=== PATIENT | female | born 1970 ===

== ENCOUNTER 2016-11-22 09:52 | Observation (INO) | payer OTHER, SELFPAY ==
[2016-11-22 09:52] VITALS: BMI 28.0
[2016-11-22 10:46] VITALS: RESP 18; TEMP 97
--- NOTE | 2016-11-22 11:02 | ED PDOC ---
HPI: Abdomen Time Seen by Provider: 11/22/16 11:01 Chief Complaint (Nursing): Abdominal Pain Chief Complaint (Provider): abdominal pain History Per: Patient Additional Complaint(s): 46 year old female presents to ED with lower abdominal pain and constipation for 5 days. Patient states she has only been having very small bowel movements over the past few days and has not had a normal substantial bowel movement in 6 days. She feels nauseous but denies any vomiting. She is tolerating liquids and solids but has decreased appetite. Patient denies history of constipation. She denies any dietary changes. No new medications. Past Medical History Reviewed: Historical Data, Nursing Documentation, Vital Signs Vital Signs: Last Vital Signs Temp 97 F L 11/22/16 10:44 Pulse 82 11/22/16 14:27 Resp 18 11/22/16 14:27 BP 133/81 11/22/16 14:27 Pulse Ox 98 11/22/16 15:01 - Medical History PMH: Gastritis, Hypothyroidism, Chronic Pain (chronic abd pain) - Surgical History Surgical History: Cholecystectomy, Endoscopy Other surgeries: tubal ligation - Family History Family History: States: No Known Family Hx - Living Arrangements Living Arrangements: With Family - Social History Current smoker - smoking cessation education provided: No Alcohol: None Drugs: Denies - Home Medications Home Medications: Ambulatory Orders Medication Instructions Recorded Levothyroxine Sodium [Synthroid] 88 mcg PO DAILY #30 tablet 12/09/15 Omeprazole 40 mg PO DAILY #0 capsule. 12/09/15 Cyclobenzaprine [Cyclobenzaprine 10 mg PO BID PRN #10 tab 08/03/16 HCl] traMADol [Ultram] 50 mg PO Q8 PRN #10 tab 08/03/16 - Allergies Allergies/Adverse Reactions: Allergies Allergy/AdvReac Type Severity Reaction Status Date / Time pineapple AdvReac SWELLING Verified 01/17/16 09:37 iv contrast AdvReac Intermediate SHORTNESS Uncoded 12/08/15 19:13 OF BREATH Review of Systems ROS Statement: Except As Marked, All Systems Reviewed And Found Negative Constitutional: Negative for: Fever Cardiovascular: Negative for: Chest Pain Respiratory: Negative for: Cough Gastrointestinal: Positive for: Nausea, Abdominal Pain, Constipation. Negative for: Vomiting, Diarrhea Genitourinary Female: Negative for: Dysuria Physical Exam - Reviewed Nursing Documentation Reviewed: Yes Vital Signs Reviewed: Yes - Physical Exam Appears: Positive for: Well, Non-toxic, No Acute Distress Skin: Negative for: Pallor, Rash Eye Exam: Positive for: Normal appearance, EOMI, PERRL Cardiovascular/Chest: Positive for: Regular Rate, Rhythm Respiratory: Positive for: Normal Breath Sounds Gastrointestinal/Abdominal: Positive for: Soft, Tenderness (mild diffuse tenderness in all 4 quadrants with slight distention, no rebound or guarding). Negative for: Hernia, Asicites Back: Negative for: L CVA Tenderness, R CVA Tenderness Rectal: Positive for: Normal Exam, Stool Is Heme: (negative), Other (no stoil in rectal vault). Negative for: Hemorrhoids, Mass Extremity: Negative for: Pedal Edema Neurologic/Psych: Positive for: Alert, Oriented - Laboratory Results Result Diagrams: 11/22/16 11:45 11/22/16 11:45 Urine POC: Negative - ECG O2 Sat by Pulse Oximetry: 98 Pulse Ox Interpretation: Normal - Other Rad CT abd and pelvis with oral contrast X-Ray: Read By Radiologist X-Ray Interpretation: see below Medical Decision Making Medical Decision Makin46 year old with abdominal pain and constipation Plan: CBC CMP Lipase KUB IVF PO mag citrate Glycerin supp Urine dip and test 11:45 am: Patient became nauseous after drinking magnesium citrate, she did not vomit. 4 mg IV Zofran ordered. Nausea resolved after Zofran was given. 1:30 pm: patient is still in a lot of pain and she was not able to have BM in ED after meds given. Repeat exam of abdomen demonstrates increased diffuse tenderness. Case was d/w Dr. Beckett, CT abd and pelvis with oral contrast only was ordered for further evaluation, patient has known allergy to IV contrast dye. ED OBSERVATION Date of observation admission: 11/22/16 Time of observation admission: 13:37 - Observation admission statement Patient is being placed in observation because:: Abdominal pain; Need for additional testing to rule out acute or life threatening condition. - Goals of Observation Goals of observation are:: Monitor patient pending diagnostic testing results and for resolution of symptoms. - Progress Note Progress Note: 11/22/16 15:01 Patient tolerated oral contrast, she is awaiting CT scan. Patient was able to have 2 bowel movements in ED and she now feels better. 11/22/16 17:00 CT: IMPRESSION: CT manifestations of mild enteritis without mechanical obstruction. This represents a new finding compared to prior CT scan. Otherwise no interval change. Patient is aware of all diagnostic testing results, all questions answered. Patient feels much better. Prescription given for Cipro secondary to UTI and enteritis. Patient given dietary instructions and was advised to drink plenty of fluids. Patient was advised to follow-up with clinic in one to 2 days and is aware she can return to ED at any time if acutely worse. Disposition - Clinical Impression Clinical Impression: Constipation, Urinary tract infection, Enteritis - Patient ED Disposition Is Patient to be Admitted: No Counseled Patient/Family Regarding: Studies Performed, Diagnosis, Need For Followup - Disposition Disposition: Routine/Home Disposition Time: 17:30 Condition: STABLE Results - Vital Signs Recent Vital Signs: Last Vital Signs Temp 97 F L 11/22/16 10:44 Pulse 82 11/22/16 14:27 Resp 18 11/22/16 14:27 BP 133/81 11/22/16 14:27 Pulse Ox 98 11/22/16 17:43 - Labs Result Diagrams: 11/22/16 11:45 11/22/16 11:45 Labs: Laboratory Results - last 24 hr 11/22/16 11/22/16 11/22/16 11:45 11:45 12:20 WBC 7.4 RBC 4.43 Hgb 13.5 Hct 39.1 MCV 88.3 MCH 30.4 MCHC 34.5 RDW 14.1 Plt Count 235 MPV 7.3 Neut % (Auto) 44.6 L Lymph % (Auto) 34.2 Martin % (Auto) 6.5 Eos % (Auto) 13.7 H Baso % (Auto) 1.0 Neut # 3.3 Lymph # 2.5 Martin # 0.5 Eos # 1.0 H Baso # 0.1 Sodium 140 Potassium 3.7 Chloride 102 Carbon Dioxide 28 Anion Gap 14 BUN 17 Creatinine 0.9 Est GFR ( Amer) > 60 Est GFR (Non-Af Amer) > 60 Random Glucose 107 H Calcium 9.0 Total Bilirubin 0.3 AST 35 ALT 43 Alkaline Phosphatase 123 Total Protein 7.5 Albumin 4.3 Globulin 3.2 Albumin/Globulin Ratio 1.4 Lipase 106 Urine Color Yellow Urine Clarity Slighty-cloudy Urine pH 6.0 Ur Specific Jefferson 1.024 Urine Protein Negative Urine Glucose (UA) Neg Urine Ketones Negative Urine Blood Negative Urine Nitrate Negative Urine Bilirubin Negative Urine Urobilinogen 0.2-1.0 Ur Leukocyte Esterase Small Urine RBC (Auto) 3 Urine Microscopic WBC 7 H Ur Squamous Epith Cells 10 H Urine Bacteria Rare
[2016-11-22] MEDS ORDERED: Magnesium Citrate Oral SOL (300 ml) PO STA (11:11)
[2016-11-22] MEDS ORDERED: Sodium Chloride 0.9% 1,000 ML IV STA (11:11)
[2016-11-22] MEDS ORDERED: Magnesium Citrate Oral SOL (300 ml) ONE (11:32)
[2016-11-22 11:55] LABS: BASO # 0.1 K/uL (0.0-0.2); EOS % 13.7 % (0.0-4.0); HEMATOCRIT 39.1 % (34.0-47.0); LYMPH # 2.5 K/uL (1.0-4.3); LYMPH % 34.2 % (20.0-40.0); MEAN CELL VOLUME 88.3 fl (81.0-99.0); MEAN CORPUSCULAR HEMOGLOBIN 30.4 pg (27.0-31.0); MEAN CORPUSCULAR HGB CONC 34.5 g/dL (33.0-37.0); MEAN PLATELET VOLUME 7.3 fl (7.2-11.7); MONO # 0.5 K/uL (0.0-0.8); MONO % 6.5 % (0.0-10.0); NEUT # 3.3 K/uL (1.8-7.0); NEUT % 44.6 % (50.0-75.0); NRBC % 0.1 % (0.0-0.0); RED CELL DISTRIBUTION WIDTH 14.1 % (11.5-14.5); WHITE BLOOD COUNT 7.4 K/uL (4.8-10.8)
[2016-11-22 12:12] LABS: ALB/GLOB RATIO 1.4 (1.0-2.1); ALKALINE PHOSPHATASE 123 U/L (38-126); ALT/SGPT 43 U/L (9-52); AST/SGOT 35 U/L (14-36); BILIRUBIN,TOTAL 0.3 mg/dl (0.2-1.3); BLOOD UREA NITROGEN 17 mg/dl (7-17); CARBON DIOXIDE 28 mmol/L (22-30); CHLORIDE 102 mmol/L (98-107); GFR AFRICAN-AMERICAN > 60; GLUCOSE,RANDOM 107 mg/dL (65-105); LIPASE 106 U/L (23-300); POTASSIUM 3.7 MMOL/L (3.6-5.0); SODIUM 140 mmol/l (132-148); TOTAL PROTEIN 7.5 G/DL (6.3-8.2)
[2016-11-22 12:50] LABS: RBC URINE 3 /hpf (0-3); URINE BACTERIA RARE (<OCC); URINE BILIRUBIN NEGATIVE (NEGATIVE); URINE BLOOD NEGATIVE (NEGATIVE); URINE COLOR YELLOW (YELLOW); URINE GLUCOSE (UA) NEG (Normal); URINE KETONE NEGATIVE (NEGATIVE); URINE LEUKOCYTE ESTERASE SMALL Leu/uL (Negative); URINE PROTEIN NEGATIVE (NEGATIVE); URINE UROBILINOGEN 0.2-1.0 mg/dL (0.2-1.0); WBC URINE 7 /hpf (0-5)
--- NOTE | 2016-11-22 13:25 | RAD ---
HISTORY: constipation, abd pain COMPARISON: 06/26/2015 FINDINGS: BOWEL: No evidence of bowel obstruction. Moderate retained stool throughout the colon. No masses or abnormal intra-abdominal calcifications. Status post cholecystectomy. Surgical clips in right upper quadrant. BONES: Normal. OTHER FINDINGS: None. IMPRESSION: Moderate retained stool.
[2016-11-22] MEDS ORDERED: Iohexol 240 (50 ml) PO STA (13:36)
[2016-11-22] MEDS ORDERED: Iohexol 240 (50 ml) ONE (14:09)
--- NOTE | 2016-11-22 17:09 | CT ---
PROCEDURE: CT Abdomen and Pelvis with contrast HISTORY: Abdominal pain. By history, negative test (concurrent with this examination). COMPARISON: 04/04/2016. TECHNIQUE: Oral contrast only. Radiation dose: Total exam DLP = 1073.75 mGy-cm. This CT exam was performed using one or more of the following dose reduction techniques: Automated exposure control, adjustment of the mA and/or kV according to patient size, and/or use of iterative reconstruction technique. FINDINGS: LOWER THORAX: Unremarkable. LIVER: Unremarkable. No gross lesion or ductal dilatation. GALLBLADDER AND BILE DUCTS: Status post cholecystectomy. No abnormality is seen in the gallbladder fossa. PANCREAS: Unremarkable. No gross lesion or ductal dilatation. SPLEEN: Unremarkable. ADRENALS: Unremarkable. No mass. KIDNEYS AND URETERS: Unremarkable. No hydronephrosis. No solid mass. VASCULATURE: Unremarkable. No aortic aneurysm. BOWEL: Mild mural thickening of the proximal small bowel compatible with enteritis. No evidence of mechanical obstruction. APPENDIX: Normal appendix. PERITONEUM: Unremarkable. No free fluid. No free air. LYMPH NODES: Unremarkable. No enlarged lymph nodes. BLADDER: Unremarkable. REPRODUCTIVE: Unremarkable. BONES: No acute fracture. OTHER FINDINGS: None. IMPRESSION: CT manifestations of mild enteritis without mechanical obstruction. This represents a new finding compared to prior CT scan. Otherwise no interval change.
[2016-11-22 17:59] VITALS: BP 119/81; PULSE 64; O2SAT 100
== END 2016-11-22 17:47 | disposition home or self-care (01) ==
LOC: H.ER 09:52 → H.EROBSV 13:37
PROVIDERS: ADMIT Emergency Medicine; ATTEND Emergency Medicine
DX: K59.00 Constipation, unspecified (principal); N39.0 Urinary tract infection, site not specified; K52.9 Noninfective gastroenteritis and colitis, unspecified; E03.9 Hypothyroidism, unspecified; G89.29 Other chronic pain; K29.70 Gastritis, unspecified, without bleeding; Z91.041 Radiographic dye allergy status; Z91.018 Allergy to other foods

== ENCOUNTER 2017-01-20 14:47 | Emergency (ER) | payer SELFPAY ==
[2017-01-20 14:47] VITALS: BMI 28.0
[2017-01-20 15:01] VITALS: O2SAT 98
[2017-01-20] MEDS ORDERED: Sodium Chloride 0.9% 1,000 ML IV STA (15:21)
--- NOTE | 2017-01-20 15:31 | ED PDOC ---
HPI: Abdomen Time Seen by Provider: 01/20/17 15:16 Chief Complaint (Nursing): Abdominal Pain Chief Complaint (Provider): Abdominal Pain History Per: Patient History/Exam Limitations: no limitations Onset/Duration Of Symptoms: Days (x 2 weeks), Intermittent Episodes Location Of Pain/Discomfort: RLQ Additional Complaint(s): Batool Amor is a 46-year-old female with a past medical history of cholecystectomy and hypothyroidism who presents to the ED complaining of intermittent right lower quadrant abdominal pain with associated nausea and vomiting intermittently ongoing for two weeks ago. The patient denies fever, dysuria, and hematochezia. Last menstrual period was 2 years ago. PMD: None recorded. Past Medical History Reviewed: Historical Data, Nursing Documentation, Vital Signs Vital Signs: Last Vital Signs Temp 97.3 F L 01/20/17 14:58 Pulse 78 01/20/17 14:58 Resp 18 01/20/17 14:58 BP 124/86 01/20/17 14:58 Pulse Ox 98 01/20/17 15:40 - Medical History PMH: Gastritis, Hypothyroidism, Chronic Pain (chronic abd pain) Denies: HIV, Chronic Kidney Disease - Surgical History Surgical History: Cholecystectomy, Endoscopy - Family History Family History: States: Unknown Family Hx - Home Medications Home Medications: Ambulatory Orders Medication Instructions Recorded Levothyroxine Sodium [Synthroid] 88 mcg PO DAILY #30 tablet 12/09/15 Omeprazole 40 mg PO DAILY #0 capsule. 12/09/15 Cyclobenzaprine [Cyclobenzaprine 10 mg PO BID PRN #10 tab 08/03/16 HCl] traMADol [Ultram] 50 mg PO Q8 PRN #10 tab 08/03/16 Ciprofloxacin [Cipro] 500 mg PO BID #14 tab 11/22/16 - Allergies Allergies/Adverse Reactions: Allergies Allergy/AdvReac Type Severity Reaction Status Date / Time pineapple AdvReac SWELLING Verified 01/17/16 09:37 iv contrast AdvReac Intermediate SHORTNESS Uncoded 12/08/15 19:13 OF BREATH Review of Systems ROS Statement: Except As Marked, All Systems Reviewed And Found Negative Constitutional: Negative for: Fever Gastrointestinal: Positive for: Nausea, Vomiting, Abdominal Pain (RLQ). Negative for: Hematochezia Genitourinary Female: Negative for: Dysuria, Frequency, Incontinence Physical Exam - Reviewed Nursing Documentation Reviewed: Yes Vital Signs Reviewed: Yes - Physical Exam Appears: Positive for: Well, Non-toxic, No Acute Distress Head Exam: Positive for: ATRAUMATIC, NORMAL INSPECTION, NORMOCEPHALIC Skin: Positive for: Normal Color, Warm, Dry Eye Exam: Positive for: Normal appearance ENT: Positive for: Normal ENT Inspection Neck: Positive for: Normal, Painless ROM, Supple Cardiovascular/Chest: Positive for: Regular Rate, Rhythm Respiratory: Positive for: CNT, Normal Breath Sounds Gastrointestinal/Abdominal: Positive for: Bowel Sounds, Soft, Tenderness (in RLQ ) Back: Positive for: Normal Inspection. Negative for: L CVA Tenderness, R CVA Tenderness Extremity: Positive for: Normal ROM Neurologic/Psych: Positive for: Alert, Oriented - Laboratory Results Result Diagrams: 01/20/17 15:45 01/20/17 15:45 - ECG O2 Sat by Pulse Oximetry: 98 (RA) Pulse Ox Interpretation: Normal Medical Decision Making Medical Decision Making: Initial Plan: * CT Abdomen and pelvis * Labs * Urine dipstick * Urine test * Morphine 2 mg IV * Zofran 4 mg IV * IV NS 1,000 mL given at 100 mL/hr * reevaluation Scribe Attestation: Documented by Cyndie Ochoa, acting as a scribe for Cash Marx MD. Provider Scribe Attestation: All medical record entries made by the Scribe were at my direction and personally dictated by me. I have reviewed the chart and agree that the record accurately reflects my personal performance of the history, physical exam, medical decision making, and the department course for this patient. I have also personally directed, reviewed, and agree with the discharge instructions and disposition. Disposition - Clinical Impression Clinical Impression: Abdominal pain - Patient ED Disposition Is Patient to be Admitted: Transfer of Care - Disposition Disposition Time: 18:53 Condition: FAIR Patient Signed Over To: Elliot Cantu
[2017-01-20] MEDS: Morphine 4 MG/ML VIAL IVP ONE ×2 (16:09→21:19)
[2017-01-20 16:19] LABS: BASO % 0.4 % (0.0-2.0); EOS # 0.3 K/uL (0.0-0.7); EOS % 3.8 % (0.0-4.0); HEMOGLOBIN 13.7 g/dL (12.0-16.0); LYMPH # 2.4 K/uL (1.0-4.3); MEAN CORPUSCULAR HEMOGLOBIN 29.8 pg (27.0-31.0); MEAN CORPUSCULAR HGB CONC 33.5 g/dL (33.0-37.0); MEAN PLATELET VOLUME 7.7 fl (7.2-11.7); MONO # 0.5 K/uL (0.0-0.8); MONO % 7.7 % (0.0-10.0); NEUT # 3.5 K/uL (1.8-7.0); NEUT % 52.1 % (50.0-75.0); RBC 4.59 Mil/uL (3.80-5.20); RED CELL DISTRIBUTION WIDTH 13.6 % (11.5-14.5); WHITE BLOOD COUNT 6.7 K/uL (4.8-10.8)
[2017-01-20 16:25] LABS: ALB/GLOB RATIO 1.4 (1.0-2.1); ALBUMIN 4.3 g/dL (3.5-5.0); ALT/SGPT 64 U/L (9-52); AST/SGOT 49 U/L (14-36); BLOOD UREA NITROGEN 17 mg/dl (7-17); CALCIUM 9.2 mg/dL (8.4-10.2); GFR AFRICAN-AMERICAN > 60; GFR NON-AFRICAN AMERICAN > 60
--- NOTE | 2017-01-20 16:35 | CT ---
PROCEDURE: CT Abdomen and Pelvis without intravenous contrast HISTORY: RLQ pain COMPARISON: 11/22/2016. TECHNIQUE: CT scan of the abdomen and pelvis was performed without administration of intravenous contrast. Oral contrast was not administered. Coronal and sagittal reformatted images were obtained. Radiation dose: Total exam DLP = 1021.14 mGy-cm. This CT exam was performed using one or more of the following dose reduction techniques: Automated exposure control, adjustment of the mA and/or kV according to patient size, and/or use of iterative reconstruction technique. FINDINGS: LOWER THORAX: The lung bases are clear. LIVER: The liver is normal in size and there is diffuse low-attenuation. No gross lesion or ductal dilatation. GALLBLADDER AND BILE DUCTS: Surgically absent. PANCREAS: Normal in size without ductal dilatation or calcifications. SPLEEN: Normal in size. ADRENALS: Normal in size without discrete nodule. KIDNEYS AND URETERS: Both kidneys are normal in size without hydronephrosis or nephrolithiasis. VASCULATURE: Normal in appearance. There are early atherosclerotic aortoiliac calcifications. No aortic aneurysm. BOWEL: The small bowel loops are normal in caliber. There is fecalization of proximal small bowel contents. The mid and distal small bowel loops are normal in caliber. The terminal ileum and ileocecal junction are normal. There is moderate amount of stool scattered throughout the colon. APPENDIX: Normal appendix. PERITONEUM: No free fluid. No free air. LYMPH NODES: Go No enlarged lymph nodes. BLADDER: Partially decompressed. REPRODUCTIVE: The uterus is normal in size.No adnexal masses. BONES: No acute fracture. Within normal limits for the patient's age. OTHER FINDINGS: None. IMPRESSION: 1. Fecalization of proximal small bowel contents is likely related to chronic stasis. No evidence of bowel obstruction. Please note evaluation of the bowel is limited in the absence of oral contrast. Constipation. 2. No CT evidence for nephrolithiasis, obstructive uropathy or acute appendicitis. 3. Hepatic steatosis.
[2017-01-20 19:12] VITALS: BP 129/65; PULSE 75; RESP 14; TEMP 98
--- NOTE | 2017-01-20 19:17 | ED PDOC ---
- Laboratory Results Result Diagrams: 01/20/17 15:45 01/20/17 15:45 - ECG O2 Sat by Pulse Oximetry: 98 (RA) Medical Decision Making Medical Decision Makin:00 Patient is signed out to me by Cash Marx MD pending ultrasound, reevaluation, and final disposition. Scribe Attestation: Documented by Latoya Fuchs, acting as a scribe for Elliot Cantu MD. Provider Scribe Attestation: All medical record entries made by the Scribe were at my direction and personally dictated by me. I have reviewed the chart and agree that the record accurately reflects my personal performance of the history, physical exam, medical decision making, and the department course for this patient. I have also personally directed, reviewed, and agree with the discharge instructions and disposition. Disposition - Clinical Impression Clinical Impression: Abdominal pain - Disposition Condition: FAIR
--- NOTE | 2017-01-20 19:36 | ED PDOC ---
- Laboratory Results Result Diagrams: 01/20/17 15:45 01/20/17 15:45 - ECG O2 Sat by Pulse Oximetry: 98 (RA) Medical Decision Making Medical Decision Makin:00 Patient is signed out to me by Cash Marx MD pending ultrasound, reevaluation, and final disposition. 20:51 US transvaginal read and reviewed by radiologist. FINDINGS: Uterus/cervix: The uterus is normal in size and echotexture. It measures 8.4x3.6x5.4 CM. The endometrial stripe is 4 mm in thickness. No myometrial mass. Right ovary: The right ovary is not clearly visualized. No cystic pelvic mass. Left ovary: The left ovary measures 2.1x1.9x2.5 CM with a volume of 5.3 CC. Small 0.8x0.6x0.7 CM cyst. There is a 1.6x0.8x1.6 CM iso-to slightly echogenic nodule within the left ovary. Normal blood flow. Free fluid: No pelvic free fluid. IMPRESSION: Suboptimal evaluation for the right ovary. 0.8x0.6x0.7 CM small left ovarian cyst and 1.6x0.8x1.6 CM iso-to slightly echogenic nodule in the left ovary. It could represent a complicated cyst or endometrioma. Recommend comparison with prior study which is not available for review at this time. Thank you for allowing us to participate in the care of your patient. Dictated and Authenticated by: Janette Cruz MD 01/20/2017 8:51 PM Eastern Time ([place] & [place]) 21:15 Patient reports having some improvement in pain. Patient is diagnosed with an ovarian cyst and will be discharged home with Rx for Naprosyn and instructions to [facility]. Return if symptoms persist or worsen. Scribe Attestation: Documented by Latoya Fuchs, acting as a scribe for Elliot Cantu MD. Provider Scribe Attestation: All medical record entries made by the Scribe were at my direction and personally dictated by me. I have reviewed the chart and agree that the record accurately reflects my personal performance of the history, physical exam, medical decision making, and the department course for this patient. I have also personally directed, reviewed, and agree with the discharge instructions and disposition. Disposition - Clinical Impression Clinical Impression: Abdominal pain, Ovarian cyst - POA Present On Arrival: None - Disposition Referrals: [facility] [Outside] [facility] [Outside] Disposition: Routine/Home Disposition Time: 21:15 Condition: STABLE Prescriptions: Naproxen [Naprosyn Tab] 250 mg PO Q12 #20 tab Instructions: Ovarian Cyst (ED) Print Language: VINCENTIAN
[2017-01-20 19:53] LABS: LIPASE 96 U/L (23-300)
--- NOTE | 2017-01-22 15:31 | US ---
HISTORY: RLQ pain COMPARISON: Comparison made with prior pelvic ultrasound 07/27/2015. Comparison also made with CT scan of the abdomen and pelvis 01/20/2017. . TECHNIQUE: Transvaginal sonographic evaluation of the pelvis performed. FINDINGS: UTERUS: Is anteverted measuring approximately 8.4 x 4.0 x 5.1 cm. Normal in size and appearance. No fibroid or other mass lesion seen. ENDOMETRIUM: Measures approximately 4 mm. Mm in diameter. Unremarkable. CERVIX: No cervical abnormality identified. RIGHT OVARY: Right ovary is not clearly identified on this exam. LEFT OVARY: Left ovary measures approximately 3.0 x 2.1 x 2.0 cm with a small 8 mm x 6 mm x 7 mm cyst. There is a additional 1.6 x 0.8 x 1.6 cm Iso to slightly echogenic nodule left ovary. Rule out the complicated cyst or endometrioma. Consider followup MRI if further evaluation is required. . FREE FLUID: No significant free fluid noted. OTHER FINDINGS: None. IMPRESSION: Small left ovarian cyst. Small isoechoic to slightly echogenic nodule left ovary. Rule out on complicated cyst or endometrioma. Followup ultrasound at 6 weeks interval vaca the recommended to assess for resolution and exclude aggressive pathology. . Alternatively, MRI of the female pelvis could be performed. . Note this report was placed in [place] review folder followup
== END 2017-01-20 21:57 | disposition home or self-care (01) ==
LOC: H.ER 14:47
DX: N83.202 Unspecified ovarian cyst, left side (principal); E03.9 Hypothyroidism, unspecified

== ENCOUNTER 2017-03-27 15:05 | Observation (INO) | payer SELFPAY ==
[2017-03-27 15:06] VITALS: BMI 28.0
[2017-03-27 15:22] VITALS: BP 147/85; PULSE 69; RESP 20; TEMP 98.6; O2SAT 99
[2017-03-27] MEDS ORDERED: DiphenhydrAMINE 50 mg/ml Inj IVP STA (15:38)
--- NOTE | 2017-03-27 15:48 | ED PDOC ---
HPI: Abdomen Time Seen by Provider: 03/27/17 15:22 Chief Complaint (Nursing): Abdominal Pain Chief Complaint (Provider): abd pain History Per: Patient History/Exam Limitations: no limitations Onset/Duration Of Symptoms: Days (1 week), Gradual, Persistent Outside of [place] travel?: No Current Symptoms Are (Timing): Still Present Location Of Pain/Discomfort: Diffuse Quality Of Discomfort: "Pain" (bloating) Associated Symptoms: Chills, Nausea, Vomiting (yellow ). denies: Fever Exacerbating Factors: None Alleviating Factors: None Additional Complaint(s): Saw Dr Ernestina ALEJANDRA today and then sent to ER for further evaluation. PMD [facility] Juan Alberto Past Medical History Reviewed: Historical Data, Nursing Documentation, Vital Signs Vital Signs: Last Vital Signs Temp 98.6 F 03/27/17 15:19 Pulse 69 03/27/17 15:19 Resp 20 03/27/17 15:19 BP 147/85 03/27/17 15:19 Pulse Ox 99 03/27/17 22:17 - Medical History PMH: Gastritis, Hypothyroidism, Chronic Pain (chronic abd pain) Denies: HIV, Chronic Kidney Disease - Surgical History Surgical History: Cholecystectomy, Endoscopy - Family History Family History: States: Unknown Family Hx - Social History Current smoker - smoking cessation education provided: No - Home Medications Home Medications: Ambulatory Orders Medication Instructions Recorded Levothyroxine Sodium [Synthroid] 88 mcg PO DAILY #30 tablet 12/09/15 Omeprazole 40 mg PO DAILY #0 capsule. 12/09/15 Cyclobenzaprine [Cyclobenzaprine 10 mg PO BID PRN #10 tab 08/03/16 HCl] traMADol [Ultram] 50 mg PO Q8 PRN #10 tab 08/03/16 Ciprofloxacin [Cipro] 500 mg PO BID #14 tab 11/22/16 Naproxen [Naprosyn Tab] 250 mg PO Q12 #20 tab 01/20/17 Dicyclomine [Bentyl] 20 mg PO BID PRN #30 tab 03/27/17 Ondansetron ODT [Zofran ODT] 1 odt PO Q6 PRN #30 odt 03/27/17 Polyethylene Glycol 3350 [Miralax] 17 gm PO DAILY PRN #1 bottle 03/27/17 - Allergies Allergies/Adverse Reactions: Allergies Allergy/AdvReac Type Severity Reaction Status Date / Time pineapple AdvReac SWELLING Verified 01/17/16 09:37 iv contrast AdvReac Intermediate SHORTNESS Uncoded 12/08/15 19:13 OF BREATH Review of Systems ROS Statement: Except As Marked, All Systems Reviewed And Found Negative Constitutional: Positive for: Chills, Malaise, Other (bodyaches) Gastrointestinal: Positive for: Nausea, Vomiting, Abdominal Pain. Negative for : Diarrhea, Constipation, Melena, Hematochezia, Hematemesis Genitourinary Female: Positive for: Frequency. Negative for: Dysuria, Hematuria Musculoskeletal: Positive for: Back Pain Neurological: Positive for: Headache. Negative for: Weakness, Numbness, Dizziness Physical Exam - Reviewed Nursing Documentation Reviewed: Yes Vital Signs Reviewed: Yes - Physical Exam Appears: Positive for: Non-toxic, In Acute Distress Head Exam: Positive for: ATRAUMATIC, NORMOCEPHALIC Skin: Positive for: Warm, Dry Eye Exam: Positive for: EOMI, PERRL ENT: Negative for: Pharyngeal Erythema, Tonsillar Exudate Neck: Positive for: Painless ROM, Supple Cardiovascular/Chest: Positive for: Regular Rate, Rhythm, Chest Non Tender. Negative for: Murmur Respiratory: Positive for: Normal Breath Sounds. Negative for: Respiratory Distress Gastrointestinal/Abdominal: Positive for: Bowel Sounds (hypoactive), Soft, Tenderness (diffuse), Distended (mildly soft distension). Negative for: Mass, Guarding, Rebound Back: Positive for: Normal Inspection. Negative for: Vertebral Tenderness Extremity: Positive for: Normal ROM. Negative for: Deformity Lymphatic: Negative for: Adenopathy Neurologic/Psych: Positive for: Alert, Mood/Affect (anxious affect). Negative for: Motor/Sensory Deficits - Laboratory Results Result Diagrams: 03/27/17 16:12 03/27/17 16:12 - ECG O2 Sat by Pulse Oximetry: 99 - Physician Consult Information Time Consulting Physican Contacted: 16:00 Physician Contacted: Sony Do MD Outcome Of Conversation: Dr Ernestina ALEJANDRA who has been following patient and from her previous history there is no known source of patient's chronic abdominal pain. ED OBSERVATION Time of observation admission: 16:30 - Observation admission statement Patient is being placed in observation because:: Symptoms persist. Needs continued bowel rest, IVF and IV meds. - Progress Note Progress Note: 1800 Persistent vomiting. IV Zofran ordered. Continue IVF. Accession No. : [id number] Patient Name / ID : KARAN MARTÍNEZ / [id number] Exam Date : 03/27/2017 19:47:54 ( Approved ) Study Comment : Sex / Age : F / 46Y Creator : Sanchez Rebolledo MD Dictator : Basket Turner : Top Icer : Sanchez Rebolledo MD Approver2 : Report Date : 03/27/2017 21:09:00 My Comment : [facility] Division of Radiology [address] [place] [address] Tel. no. Patient Name: PARADISE GARRISON I Pt. Address: [address] [place] [address]. Rec #: [id number] [place] [address]: Igor FELIX ,Mary Schmidt Pt CELL Order Location: [facility] : 1970 Female Age: 46 Order #: [id number] Reason for exam: intractable vomiting CT Scan ABD PELVIS W/O PO OR IV CONT Exam Date: 03/27/17 This imaging exam was performed at [facility] EXAM: CT Abdomen and Pelvis Without Intravenous Contrast CLINICAL HISTORY: 46 years old, female; Pain; Abdominal pain; Generalized; Prior surgery; Surgery date: 6+ months; Surgery type: Gb removed. Tubal ligation; Additional info: Intractable vomiting. Nausea TECHNIQUE: Axial computed tomography images of the abdomen and pelvis without intravenous contrast. All CT scans at this facility use one or more dose reduction techniques, viz.: automated exposure control; ma/kV adjustment per patient size (including targeted exams where dose is matched to indication; i.e. head); or iterative reconstruction technique. Coronal and sagittal reformatted images were created and reviewed. COMPARISON: CT - ABD PELVIS W/O PO OR IV CONT 01/20/2017 3:35:03 PM FINDINGS: Limitations: Lack of intravenous contrast. Lower thorax: No acute findings. ABDOMEN: Liver: Fatty infiltration. Gallbladder and bile ducts: Cholecystectomy. No ductal dilation. Pancreas: Unremarkable. No ductal dilation. Spleen: No splenomegaly. Adrenals: No mass. Kidneys and ureters: No renal calculi. No hydronephrosis. Stomach and bowel: No definite mural thickening. No obstruction. Appendix: Normal caliber. No inflammation. PELVIS: Bladder: Unremarkable. No stones. Reproductive: Tubal ligation. ABDOMEN and PELVIS: Intraperitoneal space: No significant fluid collection. No free air. Bones/joints: No acute fracture. Soft tissues: Tiny umbilical hernia containing fat. Vasculature: Minimal atherosclerotic disease. No aneurysm. Lymph nodes: No pathologically enlarged lymph nodes. IMPRESSION: 1. No definite acute intraabdominal abnormality. 2. Incidental/non-acute findings are described above. Dictated By: Sanchez Rebolledo MD Dictated Date/Time: 03/27/172108 Signed By: Sanchez Rebolledo MD Date Signed: 2108 Transcribed By: PERRY Transcribe Date/Time : 03/27/172108 ACYP02/VRD 2100 Pt reports feeling better. PO challenge 2200 Tolerated apple juice. DW pt findings and plan of care. Also spent time discussing risk of radiation from multiple CT scans and need to be more selective with needs. Advised f/u with Dr Do Disposition - Clinical Impression Clinical Impression: Abdominal pain Counseled Patient/Family Regarding: Studies Performed, Diagnosis, Need For Followup, Rx Given - Disposition Disposition Time: 16:30 Condition: IMPROVED
[2017-03-27] MEDS ORDERED: DiphenhydrAMINE 50 mg/ml Inj ONE (16:23)
[2017-03-27] MEDS ORDERED: Promethazine 25 MG in Sodium Chloride 0.9% 50 ML IV ONE (16:30)
[2017-03-27 16:32] LABS: BASO % 0.8 % (0.0-2.0); EOS # 0.3 K/uL (0.0-0.7); EOS % 4.3 % (0.0-4.0); HEMATOCRIT 41.9 % (34.0-47.0); LYMPH # 2.5 K/uL (1.0-4.3); MEAN CELL VOLUME 89.6 fl (81.0-99.0); MEAN CORPUSCULAR HGB CONC 33.4 g/dL (33.0-37.0); MEAN PLATELET VOLUME 7.9 fl (7.2-11.7); MONO # 0.4 K/uL (0.0-0.8); MONO % 7.3 % (0.0-10.0); NEUT # 2.7 K/uL (1.8-7.0); NEUT % 45.6 % (50.0-75.0); NRBC % 0.1 % (0.0-0.0); RED CELL DISTRIBUTION WIDTH 14.1 % (11.5-14.5); WHITE BLOOD COUNT 5.9 K/uL (4.8-10.8)
[2017-03-27 16:34] LABS: ALB/GLOB RATIO 1.4 (1.0-2.1); ALKALINE PHOSPHATASE 115 U/L (38-126); ALT/SGPT 114 U/L (9-52); AMYLASE 70 U/L (30-110); AST/SGOT 53 U/L (14-36); BILIRUBIN,TOTAL 0.6 mg/dl (0.2-1.3); BLOOD UREA NITROGEN 10 mg/dl (7-17); CALCIUM 9.4 mg/dL (8.4-10.2); CARBON DIOXIDE 25 mmol/L (22-30); CHLORIDE 106 mmol/L (98-107); GFR AFRICAN-AMERICAN > 60; GLUCOSE,RANDOM 102 mg/dL (65-105); LIPASE 108 U/L (23-300); MAGNESIUM 2.1 MG/DL (1.6-2.3); PHOSPHOROUS 3.8 mg/dl (2.5-4.5); SODIUM 144 mmol/l (132-148); TOTAL PROTEIN 7.6 G/DL (6.3-8.2)
[2017-03-27 16:43] LABS: PARTIAL THROMBOPLASTIN TIME 29.5 Seconds (25.6-37.1)
[2017-03-27 17:06] LABS: THYROID STIMULATING HORMONE 2.13 mIU/ML (0.46-4.68)
--- NOTE | 2017-03-27 21:09 | CT ---
EXAM: CT Abdomen and Pelvis Without Intravenous Contrast CLINICAL HISTORY: 46 years old, female; Pain; Abdominal pain; Generalized; Prior surgery; Surgery date: 6+ months; Surgery type: Gb removed. Tubal ligation; Additional info: Intractable vomiting. Nausea TECHNIQUE: Axial computed tomography images of the abdomen and pelvis without intravenous contrast. All CT scans at this facility use one or more dose reduction techniques, viz.: automated exposure control; ma/kV adjustment per patient size (including targeted exams where dose is matched to indication; i.e. head); or iterative reconstruction technique. Coronal and sagittal reformatted images were created and reviewed. COMPARISON: CT - ABD PELVIS W/O PO OR IV CONT 01/20/2017 3:35:03 PM FINDINGS: Limitations: Lack of intravenous contrast. Lower thorax: No acute findings. ABDOMEN: Liver: Fatty infiltration. Gallbladder and bile ducts: Cholecystectomy. No ductal dilation. Pancreas: Unremarkable. No ductal dilation. Spleen: No splenomegaly. Adrenals: No mass. Kidneys and ureters: No renal calculi. No hydronephrosis. Stomach and bowel: No definite mural thickening. No obstruction. Appendix: Normal caliber. No inflammation. PELVIS: Bladder: Unremarkable. No stones. Reproductive: Tubal ligation. ABDOMEN and PELVIS: Intraperitoneal space: No significant fluid collection. No free air. Bones/joints: No acute fracture. Soft tissues: Tiny umbilical hernia containing fat. Vasculature: Minimal atherosclerotic disease. No aneurysm. Lymph nodes: No pathologically enlarged lymph nodes. IMPRESSION: 1. No definite acute intraabdominal abnormality. 2. Incidental/non-acute findings are described above.
--- NOTE | 2017-03-28 08:15 | RAD ---
PROCEDURE: Radiographs of the chest and abdomen (obstructive series) HISTORY: abd pain r/o sbo COMPARISON: Abdomen and pelvis CT without contrast a 01/20/2017 TECHNIQUE: AP radiograph of the chest, with upright and supine radiographs of the abdomen. FINDINGS: CHEST: Lungs: Clear. Cardiovascular: Normal size heart. No pulmonary vascular congestion. Pleura: No pleural fluid. No pneumothorax. Other findings: None. ABDOMEN AND PELVIS: Bowel: A nonspecific bowel gas pattern is appreciated with a couple loops of small bowel mildly moderately distended in the central abdomen. No additional bowel distention appreciable including large bowel. Free air: None. Bones: Unremarkable. Other findings: None. IMPRESSION: Unremarkable radiographs of chest. Nonspecific bowel gas pattern. Clinical correlation consideration of follow-up radiography or CT are advised.
--- NOTE | 2017-03-28 08:51 | CARD ---
APPROVED REPORT EKG Measurement Heart [id number] <Conclusion> Normal sinus rhythm normal ECG
== END 2017-03-27 23:07 | disposition home or self-care (01) ==
LOC: H.ER 15:05 → H.EROBSV 16:26
PROVIDERS: ADMIT Emergency Medicine; ATTEND Emergency Medicine
DX: R10.9 Unspecified abdominal pain (principal); R11.2 Nausea with vomiting, unspecified; E03.9 Hypothyroidism, unspecified; G89.29 Other chronic pain
CPT/HCPCS: 74022; 74176; 80053; 80324; 80345; 80346; 80349; 80353; 80358; 80361; 81025; 82150; 83605; 83615; 83690; 83735; 83992; 84100; 84443; 85025; 85610; 85730; 86850; 86900; 87040; 93005; 96374; 99283; G0378; J1200; J2550; J7042

== ENCOUNTER 2017-04-05 11:29 | Observation (INO) | payer SELFPAY ==
[2017-04-05 11:29] VITALS: BMI 28.0
[2017-04-05 12:09] VITALS: RESP 18; TEMP 98.7
[2017-04-05] MEDS ORDERED: Sodium Chloride 0.9% 1,000 ML IV STA (12:19)
[2017-04-05] MEDS ORDERED: Iohexol 240 (50 ml) PO ONE (12:20)
--- NOTE | 2017-04-05 12:22 | ED PDOC ---
HPI: Abdomen Time Seen by Provider: 04/05/17 12:08 Chief Complaint (Nursing): Abdominal Pain Chief Complaint (Provider): Abd pain History Per: Patient History/Exam Limitations: no limitations Onset/Duration Of Symptoms: Days (weeks) Outside of [place] travel?: No Current Symptoms Are (Timing): Still Present Additional Complaint(s): Diffuse abd pain. Nausea, vomit, diarrhea. Ongoing for weeks. Seen by doctor multiple times and ER multiple times. No back pain. No new food or drinks. No chest pain, dyspnea. No travel or new food. No dysuria. Past Medical History Reviewed: Nursing Documentation, Vital Signs Vital Signs: Last Vital Signs Temp 98.7 F 04/05/17 12:05 Pulse 65 04/05/17 12:05 Resp 18 04/05/17 12:05 BP 121/73 04/05/17 12:05 Pulse Ox 97 04/05/17 14:22 - Medical History PMH: Gastritis, Hypothyroidism, Chronic Pain (chronic abd pain) Denies: HIV, Chronic Kidney Disease - Surgical History Surgical History: Cholecystectomy, Endoscopy - Family History Family History: States: Unknown Family Hx - Social History Alcohol: None Drugs: Denies - Home Medications Home Medications: Ambulatory Orders Medication Instructions Recorded Levothyroxine Sodium [Synthroid] 88 mcg PO DAILY #30 tablet 12/09/15 Omeprazole 40 mg PO DAILY #0 capsule. 12/09/15 Cyclobenzaprine [Cyclobenzaprine 10 mg PO BID PRN #10 tab 08/03/16 HCl] traMADol [Ultram] 50 mg PO Q8 PRN #10 tab 08/03/16 Ciprofloxacin [Cipro] 500 mg PO BID #14 tab 11/22/16 Naproxen [Naprosyn Tab] 250 mg PO Q12 #20 tab 01/20/17 Dicyclomine [Bentyl] 20 mg PO BID PRN #30 tab 03/27/17 Ondansetron ODT [Zofran ODT] 1 odt PO Q6 PRN #30 odt 03/27/17 Polyethylene Glycol 3350 [Miralax] 17 gm PO DAILY PRN #1 bottle 03/27/17 - Allergies Allergies/Adverse Reactions: Allergies Allergy/AdvReac Type Severity Reaction Status Date / Time pineapple AdvReac SWELLING Verified 04/05/17 12:10 iv contrast AdvReac Intermediate SHORTNESS Uncoded 04/05/17 12:10 OF BREATH Review of Systems ROS Statement: Except As Marked, All Systems Reviewed And Found Negative Gastrointestinal: Positive for: Nausea, Vomiting, Abdominal Pain, Diarrhea Physical Exam - Reviewed Nursing Documentation Reviewed: Yes Vital Signs Reviewed: Yes - Physical Exam Appears: Positive for: Non-toxic, No Acute Distress Head Exam: Positive for: ATRAUMATIC, NORMAL INSPECTION, NORMOCEPHALIC Skin: Positive for: Normal Color, Warm, DRY Eye Exam: Positive for: EOMI, Normal appearance, PERRL ENT: Positive for: Normal ENT Inspection Neck: Positive for: Normal, Painless ROM, Supple Cardiovascular/Chest: Positive for: Regular Rate, Rhythm Respiratory: Positive for: CNT, Normal Breath Sounds Gastrointestinal/Abdominal: Positive for: Bowel Sounds, Soft, Tenderness ( diffuse mild) Back: Positive for: Normal Inspection. Negative for: L CVA Tenderness, R CVA Tenderness Extremity: Positive for: Normal ROM. Negative for: Tenderness, Pedal Edema Neurologic/Psych: Positive for: Alert, Oriented - Laboratory Results Result Diagrams: 04/05/17 13:03 04/05/17 13:03 Interpretation Of Abn Labs: no acute - ECG O2 Sat by Pulse Oximetry: 97 - Progress ED Course And Treament: 1423: Stable. Chronic abd pain. Had ct abd/pelvis 03/27/17 with no acute. Had has multiple ct in the past. Fu with pcp. Has GI Dr. Do. Pain improved. FU with pcp. Tolerated PO. AAOx3. ED OBSERVATION Discharge: Yes Date of observation admission: 04/05/17 Time of observation admission: 13:25 - Observation admission statement Patient is being placed in observation because:: abd pain eval - Goals of Observation Goals of observation are:: pain eval and control - Progress Note Progress Note: 04/05/17 14:25 better/dc. Disposition - Clinical Impression Clinical Impression: Abdominal pain - Patient ED Disposition Is Patient to be Admitted: No Counseled Patient/Family Regarding: Studies Performed, Diagnosis, Need For Followup, Rx Given - Disposition Disposition: Routine/Home Disposition Time: 14:25 Condition: STABLE - POA Present On Arrival: None
[2017-04-05] MEDS ORDERED: Iohexol 240 (50 ml) ONE (13:06)
[2017-04-05 13:10] LABS: BASO # 0.1 K/uL (0.0-0.2); BASO % 0.8 % (0.0-2.0); EOS # 0.3 K/uL (0.0-0.7); EOS % 4.7 % (0.0-4.0); HEMATOCRIT 43.8 % (34.0-47.0); LYMPH # 2.4 K/uL (1.0-4.3); LYMPH % 37.6 % (20.0-40.0); MEAN CELL VOLUME 89.4 fl (81.0-99.0); MEAN CORPUSCULAR HEMOGLOBIN 29.7 pg (27.0-31.0); MEAN CORPUSCULAR HGB CONC 33.3 g/dL (33.0-37.0); MEAN PLATELET VOLUME 8.2 fl (7.2-11.7); MONO # 0.4 K/uL (0.0-0.8); MONO % 6.1 % (0.0-10.0); NEUT # 3.2 K/uL (1.8-7.0); NEUT % 50.8 % (50.0-75.0); NRBC % 0.1 % (0.0-0.0); WHITE BLOOD COUNT 6.3 K/uL (4.8-10.8)
[2017-04-05 13:18] LABS: ALB/GLOB RATIO 1.3 (1.0-2.1); ALKALINE PHOSPHATASE 107 U/L (38-126); ALT/SGPT 69 U/L (9-52); AST/SGOT 64 U/L (14-36); BILIRUBIN,TOTAL 0.9 mg/dl (0.2-1.3); BLOOD UREA NITROGEN 11 mg/dl (7-17); CALCIUM 9.4 mg/dL (8.4-10.2); CARBON DIOXIDE 25 mmol/L (22-30); CHLORIDE 104 mmol/L (98-107); GFR AFRICAN-AMERICAN > 60; GLUCOSE,RANDOM 109 mg/dL (65-105); LIPASE 108 U/L (23-300); SODIUM 141 mmol/l (132-148)
[2017-04-05 13:19] LABS: POTASSIUM 4.8 MMOL/L (3.6-5.0)
[2017-04-05 14:41] VITALS: BP 128/65; PULSE 78; O2SAT 98
== END 2017-04-05 14:41 | disposition home or self-care (01) ==
LOC: H.ER 11:29 → H.EROBSV 12:19
PROVIDERS: ADMIT Emergency Medicine; ATTEND Emergency Medicine
DX: R10.9 Unspecified abdominal pain (principal); E03.9 Hypothyroidism, unspecified; K29.70 Gastritis, unspecified, without bleeding; G89.29 Other chronic pain
CPT/HCPCS: 80053; 81025; 83690; 85025; 96361; 96374; 96375; 99283; G0378; J2270; J2405; J7040; Q9966

== ENCOUNTER 2017-05-29 19:03 | Emergency (ER) | payer SELFPAY ==
[2017-05-29 19:03] VITALS: BMI 28.0
[2017-05-29 19:21] VITALS: BP 160/58; PULSE 90; RESP 20; TEMP 98.2; O2SAT 99
[2017-05-29] MEDS ORDERED: Promethazine/Cod 6.25mg-10mg/5ml Syr UD PO STA (19:56)
--- NOTE | 2017-05-29 20:20 | ED PDOC ---
HPI: CCC, URI, Sore Throat Time Seen by Provider: 05/29/17 19:28 Chief Complaint (Nursing): Cough, Cold, Congestion Chief Complaint (Provider): Cough History Per: Patient History/Exam Limitations: no limitations Have you had recent travel within the past 21 days to any of the following countries: [place], [place], [place] or [place]?: No Onset/Duration Of Symptoms: Days Current Symptoms Are (Timing): Still Present Location Of Pain: Diffuse Myalgias Associated Symptoms: Fever, Sore Throat, Cough, Myalgias, Vomiting Additional History Per: Patient Additional Complaint(s): 46yo female, no known past medical history, presents to ED for evaluation of cough with yellow sputum, fever, bodyaches, sore throat, and post-tussive vomiting for the past 2 days. Patient denies any chest pain, shortness of breath , weakness. She denies any known sick contacts. No other medical complaints. Past Medical History Reviewed: Historical Data, Nursing Documentation, Vital Signs Vital Signs: Last Vital Signs Temp 98.2 F 05/29/17 19:19 Pulse 90 05/29/17 19:19 Resp 20 05/29/17 19:19 BP 160/58 H 05/29/17 19:19 Pulse Ox 99 05/29/17 20:32 - Medical History PMH: Gastritis, Hypothyroidism, Chronic Pain (chronic abd pain) Denies: HIV, Chronic Kidney Disease - Surgical History Surgical History: Cholecystectomy, Endoscopy - Family History Family History: States: Unknown Family Hx - Home Medications Home Medications: Ambulatory Orders Medication Instructions Recorded Levothyroxine Sodium [Synthroid] 88 mcg PO DAILY #30 tablet 12/09/15 Omeprazole 40 mg PO DAILY #0 capsule. 12/09/15 Cyclobenzaprine [Cyclobenzaprine 10 mg PO BID PRN #10 tab 08/03/16 HCl] traMADol [Ultram] 50 mg PO Q8 PRN #10 tab 08/03/16 Ciprofloxacin [Cipro] 500 mg PO BID #14 tab 11/22/16 Naproxen [Naprosyn Tab] 250 mg PO Q12 #20 tab 01/20/17 Dicyclomine [Bentyl] 20 mg PO BID PRN #30 tab 03/27/17 Ondansetron ODT [Zofran ODT] 1 odt PO Q6 PRN #30 odt 03/27/17 Polyethylene Glycol 3350 [Miralax] 17 gm PO DAILY PRN #1 bottle 03/27/17 Famotidine [Pepcid] 20 mg PO DAILY PRN #6 tab 04/05/17 Albuterol HFA [Ventolin HFA 90 2 puff IH Q6 #200 puff 05/29/17 mcg/actuation (8 g)] Promethazine/Codeine 10 ml PO BID #200 ml 05/29/17 [Phenergan/Codeine Oral Syrup] - Allergies Allergies/Adverse Reactions: Allergies Allergy/AdvReac Type Severity Reaction Status Date / Time pineapple AdvReac SWELLING Verified 04/05/17 12:10 iv contrast AdvReac Intermediate SHORTNESS Uncoded 04/05/17 12:10 OF BREATH Review of Systems ROS Statement: Except As Marked, All Systems Reviewed And Found Negative Constitutional: Positive for: Fever, Chills, Malaise ENT: Positive for: Throat Pain Cardiovascular: Negative for: Chest Pain Respiratory: Positive for: Cough, Sputum. Negative for: Shortness of Breath Gastrointestinal: Positive for: Vomiting Physical Exam - Reviewed Nursing Documentation Reviewed: Yes Vital Signs Reviewed: Yes - Physical Exam Appears: Positive for: Non-toxic, No Acute Distress Head Exam: Positive for: ATRAUMATIC, NORMAL INSPECTION, NORMOCEPHALIC Skin: Positive for: Normal Color, Warm Eye Exam: Positive for: Normal appearance ENT: Positive for: Normal ENT Inspection. Negative for: Pharyngeal Erythema, Tonsillar Exudate, Tonsillar Swelling Neck: Positive for: Supple Cardiovascular/Chest: Positive for: Regular Rate, Rhythm Respiratory: Positive for: Normal Breath Sounds. Negative for: Respiratory Distress Lymphatic: Positive for: Adenopathy (bilateral anterior cervical lymphadenopathy ) Neurologic/Psych: Positive for: Alert, Oriented. Negative for: Motor/Sensory Deficits - ECG O2 Sat by Pulse Oximetry: 99 (RA) Pulse Ox Interpretation: Normal Medical Decision Making Medical Decision Making: Time: 1927 Impression: URI r/o bronchitis, pneumonia Plan: -- CXR -- Promethazine/codeine 10 ml PO Reassess chest xray: negative-will treat for viral illness f/u with pmd rx: promethezine with codeine, albuterol inh Scribe Attestation: Documented by Shaina Zapien acting as a scribe for RODERICK Fuentes Provider Attestation: All medical record entries made by the Scribe were at my direction and personally dictated by me. I have reviewed the chart and agree that the record accurately reflects my personal performance of the history, physical exam, medical decision making, and the department course for this patient. I have also personally directed, reviewed, and agree with the discharge instructions and disposition. Disposition - Clinical Impression Clinical Impression: Bronchitis - Patient ED Disposition Is Patient to be Admitted: No Counseled Patient/Family Regarding: Studies Performed, Diagnosis, Need For Followup, Rx Given - Disposition Referrals: [facility] [Outside] Disposition: Routine/Home Disposition Time: 21:08 Condition: STABLE Prescriptions: Albuterol HFA [Ventolin HFA 90 mcg/actuation (8 g)] 2 puff IH Q6 #200 puff Promethazine/Codeine [Phenergan/Codeine Oral Syrup] 10 ml PO BID #200 ml Instructions: Acute Bronchitis (ED) Forms: [facility] ED School/Work Excuse Print Language: FRENCH
--- NOTE | 2017-05-30 10:02 | RAD ---
HISTORY: COMPARISON: 03/27/2017. TECHNIQUE: Chest PA and lateral FINDINGS: LINES AND TUBES: None. LUNG AND PLEURA: The lungs are well inflated and clear. HEART AND MEDIASTINUM: The heart is not enlarged. The hilar and mediastinal contours are within normal limits. SKELETAL STRUCTURES: The bony structures are within normal limits for the patient's age. VISUALIZED UPPER ABDOMEN: Normal. OTHER FINDINGS: None. IMPRESSION: No active pulmonary disease.
== END 2017-05-29 21:20 | disposition home or self-care (01) ==
LOC: H.ER 19:03
DX: J40 Bronchitis, not specified as acute or chronic (principal); G89.29 Other chronic pain

== ENCOUNTER 2017-08-08 16:23 | Inpatient (IN) | payer SELFPAY ==
[2017-08-08 16:23] VITALS: BMI 28.0
[2017-08-08] MEDS ORDERED: Sodium Chloride 0.9% 1,000 ML IV STA (16:44)
--- NOTE | 2017-08-08 16:47 | ED PDOC ---
HPI: Headache Time Seen by Provider: 08/08/17 16:34 Chief Complaint (Nursing): Headache Chief Complaint (Provider): Headache History Per: Patient History/Exam Limitations: no limitations Onset/Duration Of Symptoms: Days (x 5) Current Symptoms Are (Timing): Still Present Additional Complaint(s): 47 year old female with a past medical history of hypothyroidism and gastritis presents to the ED complaining of head pain with associated nausea and neck pain , onset 5 days ago. Patient also reports bilateral numbness in her hands which she describes as them "sleeping". She feels a similar sensation in her legs sometimes, but says it is usually after a lot of exercise. She takes medications for hypothyroidism and gastritis. Does not describe the headache as "thunderclap" or worst of her life. Denies vomiting and chest pain. No fever, cough. No vision changes. Lights bothering her sometimes. Headache was gradual onset. Seen at [facility] and sent to the ED. PMD: [facility] Past Medical History Reviewed: Historical Data, Nursing Documentation, Vital Signs Vital Signs: Last Vital Signs Temp 98.5 F 08/08/17 16:25 Pulse 65 08/08/17 16:25 Resp 18 08/08/17 16:25 BP 144/90 08/08/17 16:25 Pulse Ox 98 08/08/17 16:25 - Medical History PMH: Gastritis, Hypothyroidism, Chronic Pain (chronic abd pain) Denies: HIV, Chronic Kidney Disease - Surgical History Surgical History: Cholecystectomy, Endoscopy - Family History Family History: States: Unknown Family Hx - Home Medications Home Medications: Ambulatory Orders Medication Instructions Recorded Levothyroxine Sodium [Synthroid] 88 mcg PO DAILY #30 tablet 12/09/15 Omeprazole 40 mg PO DAILY #0 capsule. 12/09/15 Cyclobenzaprine [Cyclobenzaprine 10 mg PO BID PRN #10 tab 08/03/16 HCl] traMADol [Ultram] 50 mg PO Q8 PRN #10 tab 08/03/16 Ciprofloxacin [Cipro] 500 mg PO BID #14 tab 11/22/16 Naproxen [Naprosyn Tab] 250 mg PO Q12 #20 tab 01/20/17 Dicyclomine [Bentyl] 20 mg PO BID PRN #30 tab 03/27/17 Ondansetron ODT [Zofran ODT] 1 odt PO Q6 PRN #30 odt 03/27/17 Polyethylene Glycol 3350 [Miralax] 17 gm PO DAILY PRN #1 bottle 03/27/17 Famotidine [Pepcid] 20 mg PO DAILY PRN #6 tab 04/05/17 Albuterol HFA [Ventolin HFA 90 2 puff IH Q6 #200 puff 05/29/17 mcg/actuation (8 g)] Promethazine/Codeine 10 ml PO BID #200 ml 05/29/17 [Phenergan/Codeine Oral Syrup] - Allergies Allergies/Adverse Reactions: Allergies Allergy/AdvReac Type Severity Reaction Status Date / Time pineapple AdvReac SWELLING Verified 08/08/17 16:25 iv contrast AdvReac Intermediate SHORTNESS Uncoded 04/05/17 12:10 OF BREATH Review of Systems ROS Statement: Except As Marked, All Systems Reviewed And Found Negative Constitutional: Negative for: Fever Gastrointestinal: Positive for: Nausea. Negative for: Vomiting Musculoskeletal: Positive for: Neck Pain Neurological: Positive for: Headache Physical Exam - Reviewed Nursing Documentation Reviewed: Yes Vital Signs Reviewed: Yes - Physical Exam Appears: Positive for: Uncomfortable Head Exam: Positive for: ATRAUMATIC, NORMAL INSPECTION, NORMOCEPHALIC Skin: Positive for: Normal Color, Warm, Dry Eye Exam: Positive for: EOMI, Normal appearance, PERRL ENT: Positive for: Normal ENT Inspection. Negative for: Nasal Congestion Neck: Positive for: Normal, Supple (tenderness across neck mild). Negative for : Painless ROM (mild pain) Cardiovascular/Chest: Positive for: Regular Rate, Rhythm. Negative for: Edema, Murmur Respiratory: Positive for: Normal Breath Sounds. Negative for: Respiratory Distress Gastrointestinal/Abdominal: Positive for: Normal Exam, Soft. Negative for: Tenderness Back: Positive for: Normal Inspection. Negative for: L CVA Tenderness, R CVA Tenderness Extremity: Positive for: Normal ROM. Negative for: Tenderness, Pedal Edema, Deformity Neurologic/Psych: Positive for: Alert, de icer installer II-XII, Oriented. Negative for: Motor/Sensory Deficits, Mood/Affect, Aphasia, Facial Droop - Laboratory Results Result Diagrams: 08/08/17 17:06 08/08/17 17:06 Interpretation Of Abn Labs: csf with neutrophils and lymph - ECG O2 Sat by Pulse Oximetry: 98 Pulse Ox Interpretation: Normal - CT Scan/US ct Other Rad Studies (CT/US): Read By Radiologist Other Rad Interpretation: no acute - Progress ED Course And Treament: 1845: Will need to do LP for further eval. Headache still present with mild improvement. Pt. agrees. Understands risk and benefits. 1120: Spoke with Dr. Vidal. Made aware of presentation and findings. Wants admit to get further eval for meningitis. Pt. aaox3. Stable Spoke with Dr. Noel for [facility]. Will admit. - Critical Care Total Time (In Min): 30 Documented Critical Care: Time excludes all time spent performint seperately billable procedures Medical Decision Making Medical Decision Making: Time: 16:43 Initial Plan: --CT Head --CMP --Troponin --Urine preg --CBC --PTT --Prothombin time --Reglan 10 mg IV --Blood cx --Normal saline IV 1,000 mls/hr Time: 17:[address] FINDINGS: HEMORRHAGE: No intracranial hemorrhage. BRAIN: No mass effect or edema. The mujica-white matter differentiation appears intact. Please note that MRI with diffusion imaging is more sensitive in the detection of acute ischemic event. VENTRICLES: No hydrocephalus. CALVARIUM: Unremarkable. PARANASAL SINUSES: Unremarkable as visualized. No significant inflammatory changes. MASTOID AIR CELLS: Unremarkable as visualized. No inflammatory changes. OTHER FINDINGS: None. IMPRESSION: No acute intracranial pathology identified. Scribe Attestation: Documented by Raya Branham, acting as a scribe for Attila Portillo MD Provider Scribe Attestation: All medical record entries made by the Scribe were at my direction and personally dictated by me. I have reviewed the chart and agree that the record accurately reflects my personal performance of the history, physical exam, medical decision making, and the department course for this patient. I have also personally directed, reviewed, and agree with the discharge instructions and disposition. Procedures - Additional Procedures Additional Procedures: lumbar puncture Progress: L4-L5 identified. Sterile procedures used. 2ml Lidocaine used to numb area 22G spinal needle advanced with no incident. CSF fluid obtained and clear. Tolerated procedure well. Consent obtained and signed. Disposition - Clinical Impression Clinical Impression: Meningitis - Patient ED Disposition Is Patient to be Admitted: Yes Counseled Patient/Family Regarding: Studies Performed, Diagnosis - Disposition Disposition Time: 22:22 Condition: FAIR - Pt Status Changed To: Hospital Disposition Of: Inpatient - Admit Certification Admit to Inpatient:: After my assessment, the patient will require hospitalization for at least two midnights. This is because of the severity of symptoms shown, intensity of services needed, and/or the medical risk in this patient being treated as an outpatient. - POA Present On Arrival: None
[2017-08-08] MEDS ORDERED: DiphenhydrAMINE 50 mg/ml Inj IVP ONE (17:00)
[2017-08-08] MEDS ORDERED: Promethazine 25 MG in Sodium Chloride 0.9% 50 ML IV ONE (17:00)
[2017-08-08 17:14] LABS: BASO # 0.1 K/uL (0.0-0.2); BASO % 0.9 % (0.0-2.0); EOS # 0.4 K/uL (0.0-0.7); EOS % 6.6 % (0.0-4.0); HEMOGLOBIN 13.7 g/dL (12.0-16.0); LYMPH # 2.6 K/uL (1.0-4.3); LYMPH % 38.7 % (20.0-40.0); MEAN CELL VOLUME 90.2 fl (81.0-99.0); MEAN CORPUSCULAR HEMOGLOBIN 29.7 pg (27.0-31.0); MEAN CORPUSCULAR HGB CONC 32.9 g/dL (33.0-37.0); MEAN PLATELET VOLUME 7.7 fl (7.2-11.7); MONO # 0.5 K/uL (0.0-0.8); MONO % 6.9 % (0.0-10.0); NEUT # 3.1 K/uL (1.8-7.0); NEUT % 46.9 % (50.0-75.0); NRBC % 0.1 % (0.0-0.0); RBC 4.61 Mil/uL (3.80-5.20); RED CELL DISTRIBUTION WIDTH 13.7 % (11.5-14.5); WHITE BLOOD COUNT 6.7 K/uL (4.8-10.8)
[2017-08-08 17:43] LABS: PARTIAL THROMBOPLASTIN TIME 27.4 Seconds (25.6-37.1); PROTHROMBIN TIME 10.9 Seconds (9.8-13.1)
--- NOTE | 2017-08-08 17:43 | CT ---
PROCEDURE: CT HEAD WITHOUT CONTRAST. HISTORY: headache COMPARISON: Noncontrast head CT performed 09/15/15 TECHNIQUE: Axial computed tomography images were obtained through the head/brain without intravenous contrast. Radiation dose: Total exam DLP = 833.49 mGy-cm. This CT exam was performed using one or more of the following dose reduction techniques: Automated exposure control, adjustment of the mA and/or kV according to patient size, and/or use of iterative reconstruction technique. FINDINGS: HEMORRHAGE: No intracranial hemorrhage. BRAIN: No mass effect or edema. The mujica-white matter differentiation appears intact. Please note that MRI with diffusion imaging is more sensitive in the detection of acute ischemic event. VENTRICLES: No hydrocephalus. CALVARIUM: Unremarkable. PARANASAL SINUSES: Unremarkable as visualized. No significant inflammatory changes. MASTOID AIR CELLS: Unremarkable as visualized. No inflammatory changes. OTHER FINDINGS: None. IMPRESSION: No acute intracranial pathology identified.
[2017-08-08 17:46] LABS: ALB/GLOB RATIO 1.2 (1.0-2.1); ALT/SGPT 89 U/L (9-52); AST/SGOT 71 U/L (14-36); BLOOD UREA NITROGEN 13 mg/dl (7-17); CALCIUM 9.1 mg/dL (8.4-10.2); GFR AFRICAN-AMERICAN > 60; GFR NON-AFRICAN AMERICAN > 60
[2017-08-08] MEDS ORDERED: DiphenhydrAMINE 50 mg/ml Inj ONE (17:49)
[2017-08-08] MEDS ORDERED: Morphine 4 MG/ML VIAL ONE (20:17)
[2017-08-08 21:02] LABS: FLUID TYPE SPINAL FLUID
[2017-08-08 21:51] LABS: CSF APPEARANCE CLEAR/COLORLESS (CLEAR); CSF VOLUME 1 mL (0-1)
[2017-08-08 22:30] LABS: CSF MONO/MACROPHAGE 1 % (0-0)
[2017-08-08] MEDS ORDERED: cefTRIAXone (Rocephin) 1 gm Inj IV ONE (23:16)
[2017-08-08] MEDS ORDERED: CEFTRIAXONE 2 GM IVPB STA (23:25)
[2017-08-09 00:10] LABS: VENOUS BLOOD GAS PCO2 52 mmHg (40-60); VENOUS BLOOD GAS PO2 24 mm/Hg (30-55)
--- NOTE | 2017-08-09 00:37 | CP.PCM.HP ---
History of Present Illness - History of Present Illness History of Present Illness: PMD: [facility] (Dr Tovar) Hx taken from patient Full code 47 year old female with PMhx of hypothyroidism and gastritis presented to the ED complaining of headache with associated nausea for the past 5 days. She admits Hx of headches in the past when she was younger but not very similar to this one. Pain is located to top of the head, dull, 7/10 but sometimes it gets worse and is stabbing, 10/10. Pain has not increased in severity since it started 5 days ago. Patient also reports bilateral numbness in her hands which she describes as them "sleeping" sometimes, associated with the stabbing headaches. She takes medications for hypothyroidism and gastritis. . Denies vomiting and chest pain. No fever, cough, but admits runny nose for the past 4- 5 days and had a "cold" last 2 weeks of June. Denies vision changes. Admits malaise and body aches since symptoms started. C/O hx of chronic, intermittent diarrhea for she follows up and was worked up with GI and gave the diagnose of "Gastritis". Seen at [facility] and sent to the ED earlier today. Denies recent traveling, pets, sick contacts. Lives alone and is visited by her father. Father not sick. Patient works at a [employer]. ED course: VS: WNL CBC, CMP, VBG, Coags all unremarkable except AST/ALT elevation Spinal tap/CSF: WBC 2% RBC 1%, Neut 2%, Lymph 4%, [place] 1% CT Head W/O contrast: No acute intracraneal pathology identified(Please see full report) Morphine, IV NS 1 L, Phenergan, Benadryl, Toradol. ED attendant (Dr Portillo) spoke with ID(Dr Martinez) who recommended admitting patient and stat dose of Vanco, Rocephin and Acyclovir. Present on Admission - Present on Admission Any Indicators Present on Admission: No Review of Systems - Review of Systems All systems: reviewed and no additional remarkable complaints except - Constitutional Constitutional: Malaise - EENT Nose/Mouth/Throat: Sore Throat - Gastrointestinal Gastrointestinal: Diarrhea (Chronic, intermittent) - Reproductive: Female Reproductive:Female: Post Menopausal - Musculoskeletal Musculoskeletal: Arthralgias - Integumentary Integumentary: absent: New Lesions, Rash - Neurological Neurological: Headaches, Paresthesias. absent: Abnormal Gait, Abnormal Hearing , Abnormal Speech, Convulsions, Dizziness, Focal Weakness - Endocrine Endocrine: Cold Intolorance Past Patient History - Infectious Disease Hx of Infectious Diseases: None - Past Medical History & Family History Past Medical History?: Yes - Past Social History Smoking Status: Never Smoked - CARDIAC Hx Cardiac Disorders: No - PULMONARY Hx Respiratory Disorders: No - NEUROLOGICAL Hx Neurological Disorder: Yes Other/Comment: Other headaches - HEENT Hx HEENT Problems: No - RENAL Hx Chronic Kidney Disease: No - ENDOCRINE/METABOLIC Hx Hypothyroidism: Yes - HEMATOLOGICAL/ONCOLOGICAL Hx Human Immunodeficiency Virus (HIV): No - INTEGUMENTARY Hx Dermatological Problems: No - MUSCULOSKELETAL/RHEUMATOLOGICAL Hx Musculoskeletal Disorders: No - GASTROINTESTINAL Hx Gastritis: Yes - GENITOURINARY/GYNECOLOGICAL Hx Genitourinary Disorders: No - PSYCHIATRIC Hx Psychophysiologic Disorder: No Hx Emotional Abuse: No Hx Physical Abuse: No Hx Substance Use: No - SURGICAL HISTORY Hx Cholecystectomy: Yes Other/Comment: BTL - ANESTHESIA Hx Anesthesia: Yes Hx Anesthesia Reactions: No Hx Malignant Hyperthermia: No Meds Allergies/Adverse Reactions: Allergies Allergy/AdvReac Type Severity Reaction Status Date / Time pineapple AdvReac SWELLING Verified 08/08/17 16:25 iv contrast AdvReac Intermediate SHORTNESS Uncoded 08/09/17 00:31 OF BREATH Physical Exam - Constitutional Appears: Non-toxic, In Acute Distress (MIld due to pain) - Head Exam Head Exam: ATRAUMATIC, NORMAL INSPECTION - Eye Exam Eye Exam: EOMI, Normal appearance, PERRL - ENT Exam ENT Exam: Mucous Membranes Moist - Neck Exam Neck exam: Positive for: Full Rom - Respiratory Exam Respiratory Exam: Clear to Auscultation Bilateral, NORMAL BREATHING PATTERN. absent: Rales, Wheezes - Cardiovascular Exam Cardiovascular Exam: REGULAR RHYTHM, +S1, +S2. absent: Gallop - GI/Abdominal Exam GI & Abdominal Exam: Normal Bowel Sounds, Soft. absent: Distended, Rebound, Tenderness - Extremities Exam Extremities exam: Positive for: normal inspection. Negative for: calf tenderness, joint swelling, tenderness - Back Exam Back exam: muscle spasm. absent: CVA tenderness (L), CVA tenderness (R) - Neurological Exam Neurological exam: Alert, Normal Gait, Oriented x3, Reflexes Normal - Psychiatric Exam Psychiatric exam: Normal Affect, Normal Mood - Skin Skin Exam: Intact, Normal Color, Warm Results - Vital Signs Recent Vital Signs: Last Vital Signs Temp 98.5 F 08/08/17 22:16 Pulse 68 08/08/17 23:57 Resp 18 08/08/17 23:57 BP 158/83 H 08/08/17 23:57 Pulse Ox 100 08/08/17 23:57 - Labs Result Diagrams: 08/08/17 17:06 08/08/17 17:06 Labs: Laboratory Results - last 24 hr 08/08/17 08/08/17 08/08/17 00:07 17:06 17:06 WBC 6.7 RBC 4.61 Hgb 13.7 Hct 41.6 MCV 90.2 MCH 29.7 MCHC 32.9 L RDW 13.7 Plt Count 222 MPV 7.7 Neut % (Auto) 46.9 L Lymph % (Auto) 38.7 [place] % (Auto) 6.9 Eos % (Auto) 6.6 H Baso % (Auto) 0.9 Neut # 3.1 Lymph # 2.6 [place] # 0.5 Eos # 0.4 Baso # 0.1 PT INR APTT pO2 24 L VBG pH 7.40 VBG pCO2 52 VBG HCO3 28.1 VBG Total CO2 33.8 H VBG O2 Sat (Calc) 43.6 VBG Base Excess 6.0 H VBG Potassium 4.1 Sodium 140.0 141 Chloride 108.0 H 104 Glucose 97 Lactate 1.2 FiO2 21.0 Potassium 4.1 Carbon Dioxide 26 Anion Gap 15 BUN 13 Creatinine 0.7 Est GFR ( Amer) > 60 Est GFR (Non-Af Amer) > 60 Random Glucose 110 H Calcium 9.1 Total Bilirubin 0.6 AST 71 H ALT 89 H D Alkaline Phosphatase 109 Troponin I < 0.0120 Total Protein 7.3 Albumin 4.0 Globulin 3.3 Albumin/Globulin Ratio 1.2 Venous Blood Potassium 4.1 Fluid Type CSF Volume CSF Appearance CSF WBC CSF RBC CSF Total Cell Counted CSF Neutrophils CSF Lymphocytes CSF Monos/Macrophages CSF Comment CSF Glucose CSF Total Protein 08/08/17 08/08/17 08/08/17 17:06 20:15 20:15 WBC RBC Hgb Hct MCV MCH MCHC RDW Plt Count MPV Neut % (Auto) Lymph % (Auto) [place] % (Auto) Eos % (Auto) Baso % (Auto) Neut # Lymph # [place] # Eos # Baso # PT 10.9 INR 1.0 APTT 27.4 pO2 VBG pH VBG pCO2 VBG HCO3 VBG Total CO2 VBG O2 Sat (Calc) VBG Base Excess VBG Potassium Sodium Chloride Glucose Lactate FiO2 Potassium Carbon Dioxide Anion Gap BUN Creatinine Est GFR ( Amer) Est GFR (Non-Af Amer) Random Glucose Calcium Total Bilirubin AST ALT Alkaline Phosphatase Troponin I Total Protein Albumin Globulin Albumin/Globulin Ratio Venous Blood Potassium Fluid Type Spinal fluid CSF Volume 1 CSF Appearance Clear/colorless CSF WBC 2.0 CSF RBC 1.0 H CSF Total Cell Counted TEST NOT PERFORMED CSF Neutrophils 2 H CSF Lymphocytes 4.0 H CSF Monos/Macrophages 1 H CSF Comment TEST NOT PERFORMED CSF Glucose 57 CSF Total Protein 08/08/17 20:15 WBC RBC Hgb Hct MCV MCH MCHC RDW Plt Count MPV Neut % (Auto) Lymph % (Auto) [place] % (Auto) Eos % (Auto) Baso % (Auto) Neut # Lymph # [place] # Eos # Baso # PT INR APTT pO2 VBG pH VBG pCO2 VBG HCO3 VBG Total CO2 VBG O2 Sat (Calc) VBG Base Excess VBG Potassium Sodium Chloride Glucose Lactate FiO2 Potassium Carbon Dioxide Anion Gap BUN Creatinine Est GFR ( Amer) Est GFR (Non-Af Amer) Random Glucose Calcium Total Bilirubin AST ALT Alkaline Phosphatase Troponin I Total Protein Albumin Globulin Albumin/Globulin Ratio Venous Blood Potassium Fluid Type CSF Volume CSF Appearance CSF WBC CSF RBC CSF Total Cell Counted CSF Neutrophils CSF Lymphocytes CSF Monos/Macrophages CSF Comment CSF Glucose CSF Total Protein 17.0 Assessment & Plan - Assessment and Plan (Free Text) Assessment: 47 y/o F with Hx of hypothyroidism and gastritis admitted for headache and suspected meningitis Intractable headache -acute -s/p morphine, toradol, benadril and phenergan at ED -Physical exam unremarkable -Afebrile -C/O body aches and runny nose -Hx of headache many years ago -CSF: few neutrophils, mono and lymphocytes -CT head w/o contrast unremarkable Suspected Meningitis -Acute -If meningitis likely Aseptic meningitis -CSF as above -CBC unremarkable -VS WNL -Pending BCx and CSF Cx -Vanco, Rocephin and Acyclovir ordered at ED, once -Droplet precautions -ID consulted (Dr Martinez) will follow recs -Called lab about availability of CSF and was informed they didnt have any more available(Unable to order more CSF studies) -Neurochecks and VS q8h Hypothyroidism -Controlled -C/W Levothyroxine -Last TSH 03/2017 = 2.13 AST/ALT elevation -Chronic, stable -Likely due to fatty liver disease reported on Abd-pelvis CT on 03/2017 Prophylactic measures -SCDs for now -Florastor BID
[2017-08-09] MEDS: Levothyroxine 125 MCG TAB PO SCH (05:54)
[2017-08-09 06:39] LABS: BASO % 0.9 % (0.0-2.0); EOS # 0.4 K/uL (0.0-0.7); EOS % 7.2 % (0.0-4.0); HEMOGLOBIN 12.9 g/dL (12.0-16.0); LYMPH # 2.5 K/uL (1.0-4.3); LYMPH % 44.2 % (20.0-40.0); MEAN CELL VOLUME 89.2 fl (81.0-99.0); MEAN CORPUSCULAR HEMOGLOBIN 30.2 pg (27.0-31.0); MEAN CORPUSCULAR HGB CONC 33.8 g/dL (33.0-37.0); MEAN PLATELET VOLUME 7.8 fl (7.2-11.7); MONO # 0.4 K/uL (0.0-0.8); MONO % 7.1 % (0.0-10.0); NEUT # 2.3 K/uL (1.8-7.0); NEUT % 40.6 % (50.0-75.0); NRBC % 0.1 % (0.0-0.0); RBC 4.29 Mil/uL (3.80-5.20); RED CELL DISTRIBUTION WIDTH 13.8 % (11.5-14.5); WHITE BLOOD COUNT 5.7 K/uL (4.8-10.8)
[2017-08-09 06:42] LABS: BLOOD UREA NITROGEN 13 mg/dl (7-17); CALCIUM 8.7 mg/dL (8.4-10.2); GFR AFRICAN-AMERICAN > 60; GFR NON-AFRICAN AMERICAN > 60
--- NOTE | 2017-08-09 08:28 | CP.PCM.PN ---
Subjective - Date & Time of Evaluation Date of Evaluation: 08/09/17 Time of Evaluation: 07:15 - Subjective Subjective: 47 y/o F evaluated and examined by bedside. Pt still complains of headache with same 7/10 intensity, was improved with medications given at ED. Nausea has improved. No acute events overnight. Pt with good appetite. Pt denied feeling sad or anxious. Pt afebrile and tolerating PO. Objective - Vital Signs/Intake and Output Vital Signs (last 24 hours): Temp Pulse Resp BP Pulse Ox 97.9 F 77 20 131/88 99 08/09/17 08:07 08/09/17 08:07 08/09/17 08:07 08/09/17 08:07 08/09/17 08:07 - Medications Medications: Current Medications Acetaminophen (Tylenol 325mg Tab) 650 mg PO Q6 PRN PRN Reason: Pain, Mild (1-3) Famotidine (Pepcid) 10 mg PO DAILY [facility] Ketorolac Tromethamine (Toradol) 15 mg IVP Q6 PRN PRN Reason: Pain, moderate (4-7) Ketorolac Tromethamine (Toradol) 30 mg IVP Q6 PRN PRN Reason: Pain, severe (8-10) Last Admin: 08/09/17 01:41 Dose: 30 mg Levothyroxine Sodium (Synthroid) 125 mcg PO QAM@0630 [facility] Last Admin: 08/09/17 05:54 Dose: 125 mcg Ondansetron HCl (Zofran Inj) 4 mg IVP Q6 PRN PRN Reason: Nausea/Vomiting Saccharomyces Boulardii (Florastor) 250 mg PO BID [facility] - Labs Labs: 08/09/17 05:50 08/09/17 05:50 PT 10.9 Seconds (9.8-13.1) 08/08/17 17:06 INR 1.0 (0.9-1.2) 08/08/17 17:06 APTT 27.4 Seconds (25.6-37.1) 08/08/17 17:06 - Constitutional Appears: Well, No Acute Distress - Head Exam Head Exam: ATRAUMATIC, NORMAL INSPECTION - Eye Exam Eye Exam: EOMI, Normal appearance Pupil Exam: NORMAL ACCOMODATION - ENT Exam ENT Exam: Mucous Membranes Moist - Neck Exam Neck Exam: Full ROM. absent: Meningismus - Respiratory Exam Respiratory Exam: Clear to Ausculation Bilateral, NORMAL BREATHING PATTERN - Cardiovascular Exam Cardiovascular Exam: REGULAR RHYTHM, +S1, +S2 - GI/Abdominal Exam GI & Abdominal Exam: Soft, Normal Bowel Sounds. absent: Guarding, Rigid, Tenderness - Extremities Exam Extremities Exam: Full ROM. absent: Calf Tenderness - Neurological Exam Neurological Exam: Alert, Awake, Oriented x3. absent: Motor Sensory Deficit Assessment and Plan - Assessment and Plan (Free Text) Assessment: 47 y/o F with PMHx of hypothyroidism and gastritis admitted for headache and suspected meningitis. 1. Intractable headache -Acute, s/p morphine, toradol, benadril and phenergan at ED -Hx of headache since many years ago, controlled with OTC Advil and Tylenol. -CSF: few neutrophils, mono and lymphocytes -CT head w/o contrast unremarkable -Neurology consult ordered. -Tylenol and Ibuprofen for pain management. 2. Suspected Meningitis -Acute -If meningitis likely Aseptic meningitis -CSF: few neutrophils, mono and lymphocytes, pro-calcitonin <0.05-nL. -CBC unremarkable; VS WNL; CSF gram stain neg. -Vanco, Rocephin and Acyclovir given at ED, once. -Droplet precautions -ID consulted (Dr Martinez), will follow recommendations. -Neurochecks and VS q8h -F/U BCx and CSF Cx -Serum and urine bacterial antigen ordered. -Serum EBV antibody and mononucleosis work-up as per ID. 3. Hypothyroidism -Controlled -C/W Levothyroxine -Last TSH 03/2017 = 2.13 4. AST/ALT elevation -Chronic, stable -Likely due to fatty liver disease reported on Abd-pelvis CT on 03/2017 5. Prophylactic measures -SCDs for now -Florastor BID
[2017-08-09] MEDS ORDERED: Pneumococcal 23-Valent Vaccine IM ONE (09:00)
[2017-08-09] MEDS ORDERED: Influenza Vaccine 18yr & older 0.5 ML/45 MCG SYR IM ONE (09:00)
[2017-08-09] MEDS: Saccharomyces Boulardi 250 mg Cap PO SCH ×2 (09:10→16:59)
[2017-08-09 11:42] LABS: SQUAMOUS EPITHIAL 16 /hpf (0-5); URINE AMORPHOUS SEDIMENT OCC /ul (<OCC); URINE BILIRUBIN NEGATIVE (NEGATIVE); URINE BLOOD NEGATIVE (NEGATIVE); URINE CLARITY CLOUDY (Clear); URINE COLOR YELLOW (YELLOW); URINE GLUCOSE (UA) NEG (Normal); URINE LEUKOCYTE ESTERASE MOD Leu/uL (Negative); URINE NITRATE NEGATIVE (NEGATIVE); URINE PROTEIN NEGATIVE (NEGATIVE); URINE UROBILINOGEN 0.2-1.0 mg/dL (0.2-1.0)
--- NOTE | 2017-08-09 17:56 | CP.PCM.CON ---
History of Present Illness - History of Present Illness History of Present Illness: 47 yr old woman who started to have headache and fever last week, with neck stiffness, She became quite ill with 9/10 headache, vomiting, and diaphoresis. She was admitted to [facility] and found to have most likely aseptic meningitis, and is being treated for this condition. On my exam, patient had severe photophobia , phonophobia, with 8/10 pain, throbbing, and with no focal neurological deficits. She is able to communicate well with me and answer my questions with no encephalopathy. Past Patient History - Infectious Disease Hx of Infectious Diseases: None - Past Medical History & Family History Past Medical History?: Yes - Past Social History Smoking Status: Never Smoked - CARDIAC Hx Cardiac Disorders: No - PULMONARY Hx Respiratory Disorders: No - NEUROLOGICAL Hx Neurological Disorder: Yes Other/Comment: Other headaches - HEENT Hx HEENT Problems: No - RENAL Hx Chronic Kidney Disease: No - ENDOCRINE/METABOLIC Hx Hypothyroidism: Yes - HEMATOLOGICAL/ONCOLOGICAL Hx Human Immunodeficiency Virus (HIV): No - INTEGUMENTARY Hx Dermatological Problems: No - MUSCULOSKELETAL/RHEUMATOLOGICAL Hx Musculoskeletal Disorders: No - GASTROINTESTINAL Hx Gastritis: Yes - GENITOURINARY/GYNECOLOGICAL Hx Genitourinary Disorders: No - PSYCHIATRIC Hx Psychophysiologic Disorder: No Hx Emotional Abuse: No Hx Physical Abuse: No Hx Substance Use: No - SURGICAL HISTORY Hx Cholecystectomy: Yes Other/Comment: BTL - ANESTHESIA Hx Anesthesia: Yes Hx Anesthesia Reactions: No Hx Malignant Hyperthermia: No Meds Allergies/Adverse Reactions: Allergies Allergy/AdvReac Type Severity Reaction Status Date / Time pineapple AdvReac SWELLING Verified 08/08/17 16:25 iv contrast AdvReac Intermediate SHORTNESS Uncoded 08/09/17 00:31 OF BREATH - Medications Medications: Current Medications Acetaminophen (Tylenol 325mg Tab) 650 mg PO Q6 PRN PRN Reason: Pain, Mild (1-3) Famotidine (Pepcid) 10 mg PO DAILY [facility] Last Admin: 08/09/17 09:10 Dose: 10 mg Ketorolac Tromethamine (Toradol) 15 mg IVP Q6 PRN PRN Reason: Pain, moderate (4-7) Ketorolac Tromethamine (Toradol) 30 mg IVP Q6 PRN PRN Reason: Pain, severe (8-10) Last Admin: 08/09/17 01:41 Dose: 30 mg Levothyroxine Sodium (Synthroid) 125 mcg PO QAM@0630 [facility] Last Admin: 08/09/17 05:54 Dose: 125 mcg Ondansetron HCl (Zofran Inj) 4 mg IVP Q6 PRN PRN Reason: Nausea/Vomiting Saccharomyces Boulardii (Florastor) 250 mg PO BID [facility] Last Admin: 08/09/17 09:10 Dose: 250 mg Results - Vital Signs Recent Vital Signs: Last Vital Signs Temp 97.9 F 08/09/17 08:07 Pulse 77 08/09/17 08:07 Resp 20 08/09/17 08:07 BP 131/88 08/09/17 08:07 Pulse Ox 99 08/09/17 08:07 - Labs Result Diagrams: 08/09/17 05:50 08/09/17 05:50 Labs: Laboratory Results - last 24 hr 08/08/17 08/08/17 08/08/17 00:07 17:06 17:06 WBC 6.7 RBC 4.61 Hgb 13.7 Hct 41.6 MCV 90.2 MCH 29.7 MCHC 32.9 L RDW 13.7 Plt Count 222 MPV 7.7 Neut % (Auto) 46.9 L Lymph % (Auto) 38.7 [place] % (Auto) 6.9 Eos % (Auto) 6.6 H Baso % (Auto) 0.9 Neut # 3.1 Lymph # 2.6 [place] # 0.5 Eos # 0.4 Baso # 0.1 PT INR APTT pO2 24 L VBG pH 7.40 VBG pCO2 52 VBG HCO3 28.1 VBG Total CO2 33.8 H VBG O2 Sat (Calc) 43.6 VBG Base Excess 6.0 H VBG Potassium 4.1 Sodium 140.0 141 Chloride 108.0 H 104 Glucose 97 Lactate 1.2 FiO2 21.0 Potassium 4.1 Carbon Dioxide 26 Anion Gap 15 BUN 13 Creatinine 0.7 Est GFR ( Amer) > 60 Est GFR (Non-Af Amer) > 60 Random Glucose 110 H Calcium 9.1 Magnesium Total Bilirubin 0.6 AST 71 H ALT 89 H D Alkaline Phosphatase 109 Troponin I < 0.0120 Total Protein 7.3 Albumin 4.0 Globulin 3.3 Albumin/Globulin Ratio 1.2 Venous Blood Potassium 4.1 Urine Color Urine Clarity Urine pH Ur Specific [place] Urine Protein Urine Glucose (UA) Urine Ketones Urine Blood Urine Nitrate Urine Bilirubin Urine Urobilinogen Ur Leukocyte Esterase Urine RBC (Auto) Urine Microscopic WBC Ur Squamous Epith Cells Amorphous Sediment Fluid Type CSF Volume CSF Appearance CSF WBC CSF RBC CSF Total Cell Counted CSF Neutrophils CSF Lymphocytes CSF Monos/Macrophages CSF Comment CSF Glucose CSF Total Protein 08/08/17 08/08/17 08/08/17 17:06 20:15 20:15 WBC RBC Hgb Hct MCV MCH MCHC RDW Plt Count MPV Neut % (Auto) Lymph % (Auto) [place] % (Auto) Eos % (Auto) Baso % (Auto) Neut # Lymph # [place] # Eos # Baso # PT 10.9 INR 1.0 APTT 27.4 pO2 VBG pH VBG pCO2 VBG HCO3 VBG Total CO2 VBG O2 Sat (Calc) VBG Base Excess VBG Potassium Sodium Chloride Glucose Lactate FiO2 Potassium Carbon Dioxide Anion Gap BUN Creatinine Est GFR ( Amer) Est GFR (Non-Af Amer) Random Glucose Calcium Magnesium Total Bilirubin AST ALT Alkaline Phosphatase Troponin I Total Protein Albumin Globulin Albumin/Globulin Ratio Venous Blood Potassium Urine Color Urine Clarity Urine pH Ur Specific [place] Urine Protein Urine Glucose (UA) Urine Ketones Urine Blood Urine Nitrate Urine Bilirubin Urine Urobilinogen Ur Leukocyte Esterase Urine RBC (Auto) Urine Microscopic WBC Ur Squamous Epith Cells Amorphous Sediment Fluid Type Spinal fluid CSF Volume 1 CSF Appearance Clear/colorless CSF WBC 2.0 CSF RBC 1.0 H CSF Total Cell Counted TEST NOT PERFORMED CSF Neutrophils 2 H CSF Lymphocytes 4.0 H CSF Monos/Macrophages 1 H CSF Comment TEST NOT PERFORMED CSF Glucose 57 CSF Total Protein 08/08/17 08/09/17 08/09/17 20:15 05:50 05:50 WBC 5.7 RBC 4.29 Hgb 12.9 Hct 38.3 MCV 89.2 MCH 30.2 MCHC 33.8 RDW 13.8 Plt Count 203 MPV 7.8 Neut % (Auto) 40.6 L Lymph % (Auto) 44.2 H [place] % (Auto) 7.1 Eos % (Auto) 7.2 H Baso % (Auto) 0.9 Neut # 2.3 Lymph # 2.5 [place] # 0.4 Eos # 0.4 Baso # 0.0 PT INR APTT pO2 VBG pH VBG pCO2 VBG HCO3 VBG Total CO2 VBG O2 Sat (Calc) VBG Base Excess VBG Potassium Sodium 143 Chloride 107 Glucose Lactate FiO2 Potassium 4.0 Carbon Dioxide 29 Anion Gap 11 BUN 13 Creatinine 0.7 Est GFR ( Amer) > 60 Est GFR (Non-Af Amer) > 60 Random Glucose 95 Calcium 8.7 Magnesium Total Bilirubin AST ALT Alkaline Phosphatase Troponin I Total Protein Albumin Globulin Albumin/Globulin Ratio Venous Blood Potassium Urine Color Urine Clarity Urine pH Ur Specific [place] Urine Protein Urine Glucose (UA) Urine Ketones Urine Blood Urine Nitrate Urine Bilirubin Urine Urobilinogen Ur Leukocyte Esterase Urine RBC (Auto) Urine Microscopic WBC Ur Squamous Epith Cells Amorphous Sediment Fluid Type CSF Volume CSF Appearance CSF WBC CSF RBC CSF Total Cell Counted CSF Neutrophils CSF Lymphocytes CSF Monos/Macrophages CSF Comment CSF Glucose CSF Total Protein 17.0 08/09/17 08/09/17 07:18 11:13 WBC RBC Hgb Hct MCV MCH MCHC RDW Plt Count MPV Neut % (Auto) Lymph % (Auto) [place] % (Auto) Eos % (Auto) Baso % (Auto) Neut # Lymph # [place] # Eos # Baso # PT INR APTT pO2 VBG pH VBG pCO2 VBG HCO3 VBG Total CO2 VBG O2 Sat (Calc) VBG Base Excess VBG Potassium Sodium Chloride Glucose Lactate FiO2 Potassium Carbon Dioxide Anion Gap BUN Creatinine Est GFR ( Amer) Est GFR (Non-Af Amer) Random Glucose Calcium Magnesium 2.0 Total Bilirubin AST ALT Alkaline Phosphatase Troponin I Total Protein Albumin Globulin Albumin/Globulin Ratio Venous Blood Potassium Urine Color Yellow Urine Clarity Cloudy Urine pH 6.0 Ur Specific [place] 1.024 Urine Protein Negative Urine Glucose (UA) Neg Urine Ketones Negative Urine Blood Negative Urine Nitrate Negative Urine Bilirubin Negative Urine Urobilinogen 0.2-1.0 Ur Leukocyte Esterase Mod Urine RBC (Auto) 1 Urine Microscopic WBC 8 H Ur Squamous Epith Cells 16 H Amorphous Sediment Occ H Fluid Type CSF Volume CSF Appearance CSF WBC CSF RBC CSF Total Cell Counted CSF Neutrophils CSF Lymphocytes CSF Monos/Macrophages CSF Comment CSF Glucose CSF Total Protein Assessment & Plan - Assessment and Plan (Free Text) Assessment: 47 yr old with meningismus, exam showing Brudzinskis sign, who is now undergoing treatment for meningitis. She has no encephalopathy, with no signs of seizures. Plan: 1. continue current care 2. Will follow.
[2017-08-09] MEDS ORDERED: Apap-Butalbital-Caffeine 325-50-40mg Tab PO ONE (20:23)
[2017-08-09] MEDS: Enoxaparin 40 mg Syringe SC SCH (21:08)
[2017-08-09 21:49] LABS: N MENINGITIS ACY/W135 NEGATIVE (NEGATIVE); N MENINGITIS B/ECOLI K1 NEGATIVE (NEGATIVE); STREP PNEUMONIAE NEGATIVE (NEGATIVE); STREPTOCOCCUS B NEGATIVE (NEGATIVE)
[2017-08-09 21:58] LABS: N MENINGITIS ACY/W135 NEGATIVE (NEGATIVE); N MENINGITIS B/ECOLI K1 NEGATIVE (NEGATIVE); STREP PNEUMONIAE NEGATIVE (NEGATIVE); STREPTOCOCCUS B NEGATIVE (NEGATIVE)
--- NOTE | 2017-08-10 01:53 | CON ---
DATE: INFECTIOUS DISEASE CONSULT LOCATION: Room 658, bed 1. HISTORY OF PRESENT ILLNESS: The patient is a 47-year-old female, who has a history of headaches, but stated that 5 days ago, she developed a headache with associated nausea and vomiting, states that this is much more significant than the one she had in the past. She states it is located at the top of her head and in the sinus areas, and sometimes it feels like she has a stabbing pain. Patient states she has also had chills all day long and worse at night. She did not take a temperature, so we do not know if she had a fever. Presently she is afebrile. Also gives a history of numbness in her hands. She gives a history of pain when she is bending her neck and bending down, which also associates with some dizziness. PAST MEDICAL HISTORY: Includes hypothyroidism and gastritis. She previously said that she had some flu-like symptoms over the last few weeks since June. Has malaise and body aches. PHYSICAL EXAMINATION: GENERAL: Patient is alert, cooperative and oriented to time and place. She speaks [place], but appears to respond more readily when spoken to in Amharic. NECK: Supple, but there is pain when she touches her chin to her neck. She has some tenderness also on submandibular and anterior cervical. LUNGS: Clear. HEART: Regular sinus rhythm. ABDOMEN: She states she has some tenderness in the epigastric area and right upper quadrant area. She has normal bowel sounds, and it is soft. LABORATORY DATA: At present time her labs, spinal fluid shows it is clear in color. She has sepsis, 2 wbc's, 1 rbc, 2 neutrophils, 4 lymphocyte, protein 17, glucose is 57. White count in the blood is 6.7, hemoglobin 13.7, 46 percent polys and 38 percent lymphs. She has 7.2 percent eos also noted. Blood AST is 71, ALT is 89. Procalcitonin level is less than 0.05. Creatinine is 0.7 and GFR is greater than 60. CSF cultures are pending as well as urinary and serum bacterial antigens. CSF, not enough fluid to do CSF bacterial antigens. Infectious mono assay is negative. CT scan of head without contrast, as she has an allergy to it; there is no acute intracranial pathology identified. ASSESSMENT AND PLAN: At the present time, she has some significant physical symptoms, diagnosed probably as encephalitis, but would continue the IV antibiotics and IV acyclovir until further labs return. Jose Martinez MD [facility]
[2017-08-10] MEDS: Levothyroxine 125 MCG TAB PO SCH (06:09)
[2017-08-10 06:34] LABS: BASO # 0.1 K/uL (0.0-0.2); BASO % 0.9 % (0.0-2.0); EOS # 0.5 K/uL (0.0-0.7); EOS % 8.6 % (0.0-4.0); HEMOGLOBIN 13.4 g/dL (12.0-16.0); LYMPH # 2.7 K/uL (1.0-4.3); LYMPH % 48.1 % (20.0-40.0); MEAN CELL VOLUME 89.6 fl (81.0-99.0); MEAN CORPUSCULAR HEMOGLOBIN 30.4 pg (27.0-31.0); MEAN CORPUSCULAR HGB CONC 33.9 g/dL (33.0-37.0); MEAN PLATELET VOLUME 7.7 fl (7.2-11.7); MONO # 0.4 K/uL (0.0-0.8); MONO % 7.7 % (0.0-10.0); NEUT % 34.7 % (50.0-75.0); NRBC % 0.1 % (0.0-0.0); RBC 4.4 Mil/uL (3.80-5.20); RED CELL DISTRIBUTION WIDTH 13.4 % (11.5-14.5); WHITE BLOOD COUNT 5.7 K/uL (4.8-10.8)
[2017-08-10 07:27] LABS: ALB/GLOB RATIO 1.1 (1.0-2.1); ALBUMIN 3.7 g/dL (3.5-5.0); ALT/SGPT 111 U/L (9-52); AST/SGOT 79 U/L (14-36); BLOOD UREA NITROGEN 13 mg/dl (7-17); CALCIUM 9.2 mg/dL (8.4-10.2); GFR AFRICAN-AMERICAN > 60; GFR NON-AFRICAN AMERICAN > 60
[2017-08-10] MEDS ORDERED: cefTRIAXone 2 GM in Sodium Chloride 0.9% 100 ML IVPB SCH (09:00)
[2017-08-10] MEDS: Saccharomyces Boulardi 250 mg Cap PO SCH ×2 (09:05→16:13)
--- NOTE | 2017-08-10 10:32 | CP.PCM.PN ---
Subjective - Date & Time of Evaluation Date of Evaluation: 08/10/17 Time of Evaluation: 10:29 - Subjective Subjective: Ms. Amor was seen and examined at the bedside. She is alert, oriented in all spheres. She states of experiencing back pain and was medicated with pain medication which is slowly taking its effect. She also further states that she had headache last night, but are now. She denies any blurred vision, dizziness and able to move her neck freely. She is able to follow simple commands. She remains in isolation to r/o meningitis. Objective - Vital Signs/Intake and Output Vital Signs (last 24 hours): Temp Pulse Resp BP Pulse Ox 97.5 F L 70 20 115/72 98 08/10/17 08:28 08/10/17 08:28 08/10/17 08:28 08/10/17 08:28 08/10/17 08:28 - Medications Medications: Current Medications Acetaminophen (Tylenol 325mg Tab) 650 mg PO Q6 PRN PRN Reason: Pain, Mild (1-3) Last Admin: 08/09/17 19:01 Dose: 650 mg Enoxaparin Sodium (Lovenox) 40 mg SC HS [facility] PRN Reason: Protocol Last Admin: 08/09/17 21:08 Dose: Not Given Famotidine (Pepcid) 10 mg PO DAILY [facility] Last Admin: 08/10/17 09:05 Dose: 10 mg Ceftriaxone Sodium 2 gm/ (Sodium Chloride) 100 mls @ 100 mls/hr IVPB DAILY [facility] PRN Reason: Protocol Vancomycin HCl 1 gm/ Sodium (Chloride) 250 mls @ 166.667 mls/hr IVPB Q12 [facility] PRN Reason: Protocol Last Admin: 08/10/17 09:06 Dose: 166.667 mls/hr Acyclovir 800 mg/ Sodium (Chloride) 250 mls @ 250 mls/hr IVPB Q8 [facility] PRN Reason: Protocol Last Admin: 08/10/17 09:06 Dose: 250 mls/hr Ibuprofen (Motrin Tab) 600 mg PO Q6 PRN PRN Reason: Pain, moderate (4-7) Last Admin: 08/09/17 16:31 Dose: 600 mg Ketorolac Tromethamine (Toradol) 15 mg IVP Q6 PRN PRN Reason: Pain, moderate (4-7) Last Admin: 08/09/17 17:00 Dose: 15 mg Ketorolac Tromethamine (Toradol) 30 mg IVP Q6 PRN PRN Reason: Pain, severe (8-10) Last Admin: 08/10/17 09:14 Dose: 30 mg Levothyroxine Sodium (Synthroid) 125 mcg PO QAM@0630 [facility] Last Admin: 08/10/17 06:09 Dose: 125 mcg Ondansetron HCl (Zofran Inj) 4 mg IVP Q6 PRN PRN Reason: Nausea/Vomiting Saccharomyces Boulardii (Florastor) 250 mg PO BID [facility] Last Admin: 08/10/17 09:05 Dose: 250 mg - Labs Labs: 08/10/17 05:55 08/10/17 05:55 PT 10.9 Seconds (9.8-13.1) 08/08/17 17:06 INR 1.0 (0.9-1.2) 08/08/17 17:06 APTT 27.4 Seconds (25.6-37.1) 08/08/17 17:06 - Constitutional Appears: No Acute Distress - Head Exam Head Exam: NORMAL INSPECTION - Neurological Exam Neurological Exam: Alert, Awake, Oriented x3 Neuro motor strength exam: Left Upper Extremity: 5, Right Upper Extremity: 5, Left Lower Extremity: 5, Right Lower Extremity: 5 Additional comments: She is able to move all extremities without any problem. follows commands. Assessment and Plan (1) Meningitis Assessment & Plan: Case discussed with Dr. Funez, continue all current medical treatment. monitor for signs of seizure. There is no new recommendations from neurology. Status: Acute
[2017-08-10] MEDS: Magnesium Oxide 400 mg Tab UD PO SCH ×2 (12:06→16:13)
--- NOTE | 2017-08-10 13:32 | CP.PCM.PN ---
Subjective - Date & Time of Evaluation Date of Evaluation: 08/10/17 Time of Evaluation: 07:30 - Subjective Subjective: 47 y/o F examined and evaluated by bedside. Pt reports headache has improved from 7/10 to 6/10 intensity. Pt afebrile overnight. Pt with good appetite and tolerating PO. Neck pain is only present upon flexion of neck. Pt now complains of lower back pain, specifically where LP was performed, pain is sharp and aggravated upon palpation. Objective - Vital Signs/Intake and Output Vital Signs (last 24 hours): Temp Pulse Resp BP Pulse Ox 97.5 F L 70 20 115/72 98 08/10/17 08:28 08/10/17 08:28 08/10/17 08:28 08/10/17 08:28 08/10/17 08:28 - Medications Medications: Current Medications Acetaminophen (Tylenol 325mg Tab) 650 mg PO Q6 PRN PRN Reason: Pain, Mild (1-3) Last Admin: 08/09/17 19:01 Dose: 650 mg Enoxaparin Sodium (Lovenox) 40 mg SC HS [facility] PRN Reason: Protocol Last Admin: 08/09/17 21:08 Dose: Not Given Famotidine (Pepcid) 10 mg PO DAILY [facility] Last Admin: 08/10/17 09:05 Dose: 10 mg Ceftriaxone Sodium 2 gm/ (Sodium Chloride) 100 mls @ 100 mls/hr IVPB DAILY [facility] PRN Reason: Protocol Last Admin: 08/10/17 11:51 Dose: 100 mls/hr Vancomycin HCl 1 gm/ Sodium (Chloride) 250 mls @ 166.667 mls/hr IVPB Q12 [facility] PRN Reason: Protocol Last Admin: 08/10/17 09:06 Dose: 166.667 mls/hr Acyclovir 800 mg/ Sodium (Chloride) 250 mls @ 250 mls/hr IVPB Q8 [facility] PRN Reason: Protocol Last Admin: 08/10/17 09:06 Dose: 250 mls/hr Ibuprofen (Motrin Tab) 600 mg PO Q6 PRN PRN Reason: Pain, moderate (4-7) Last Admin: 08/09/17 16:31 Dose: 600 mg Ketorolac Tromethamine (Toradol) 15 mg IVP Q6 PRN PRN Reason: Pain, moderate (4-7) Last Admin: 08/09/17 17:00 Dose: 15 mg Ketorolac Tromethamine (Toradol) 30 mg IVP Q6 PRN PRN Reason: Pain, severe (8-10) Last Admin: 08/10/17 09:14 Dose: 30 mg Levothyroxine Sodium (Synthroid) 125 mcg PO QAM@0630 [facility] Last Admin: 08/10/17 06:09 Dose: 125 mcg Magnesium Oxide (Mag-Ox) 400 mg PO BID [facility] Last Admin: 08/10/17 12:06 Dose: 400 mg Ondansetron HCl (Zofran Inj) 4 mg IVP Q6 PRN PRN Reason: Nausea/Vomiting Saccharomyces Boulardii (Florastor) 250 mg PO BID [facility] Last Admin: 08/10/17 09:05 Dose: 250 mg - Labs Labs: 08/10/17 05:55 08/10/17 05:55 PT 10.9 Seconds (9.8-13.1) 08/08/17 17:06 INR 1.0 (0.9-1.2) 08/08/17 17:06 APTT 27.4 Seconds (25.6-37.1) 08/08/17 17:06 - Constitutional Appears: Well, Non-toxic, No Acute Distress - Head Exam Head Exam: ATRAUMATIC, NORMAL INSPECTION, NORMOCEPHALIC - Eye Exam Eye Exam: EOMI, Normal appearance, PERRL - ENT Exam ENT Exam: Mucous Membranes Moist, Normal Exam - Neck Exam Neck Exam: Full ROM. absent: Tenderness Additional comments: Neck pain is elicited upon neck flexion. - Respiratory Exam Respiratory Exam: Clear to Ausculation Bilateral, NORMAL BREATHING PATTERN - Cardiovascular Exam Cardiovascular Exam: REGULAR RHYTHM, +S1, +S2 - GI/Abdominal Exam GI & Abdominal Exam: Soft, Normal Bowel Sounds. absent: Guarding, Tenderness - Extremities Exam Extremities Exam: Full ROM, Normal Capillary Refill, Normal Inspection. absent : Joint Swelling - Neurological Exam Neurological Exam: Alert, Awake, Oriented x3 Assessment and Plan - Assessment and Plan (Free Text) Assessment: 47 y/o F with PMHx of hypothyroidism and gastritis admitted for headache and suspected meningitis. 1. Intractable headache -Hx of headache since many years ago, controlled with OTC Advil and Tylenol. -CSF: few neutrophils, mono and lymphocytes -CT head w/o contrast unremarkable -Serum and Urine bacterial antigen were negative. EBV IgG 244-high. EBV IgM negative. [place] negative. -No recommendations from Neurology. -Magnesium Oxide added to Tylenol and Ibuprofen for pain management. 2. Suspected Meningitis -CSF: few neutrophils, mono and lymphocytes, pro-calcitonin <0.05-nL. -CBC unremarkable; VS WNL; CSF gram stain neg. -Vanco, Rocephin and Acyclovir as per ID. -Droplet precautions -ID consulted. -Blood Cx NO growth after 24 hrs. CSF Cx pending. -Serum and Urine bacterial antigen were negative. -F/U final reports from [facility] and CSF Cx - Follow ID recommendations/ 3. Hypothyroidism -Controlled -C/W Levothyroxine -Last TSH 03/2017 = 2.13 4. AST/ALT elevation -Chronic, stable -Likely due to fatty liver disease reported on Abd-pelvis CT on 03/2017 5. Prophylactic measures -Enoxaparin 40mg nightly. -Florastor BID
[2017-08-10] MEDS ORDERED: Dexamethasone 2 MG in Sodium Chloride 0.9% 50 ML IVPB ONE (15:47)
[2017-08-10] MEDS ORDERED: Dexamethasone 4 mg/1 ml IVP ONE (16:00)
[2017-08-10] MEDS: Enoxaparin 40 mg Syringe SC SCH (21:36)
[2017-08-11 00:36] VITALS: TEMP 97.6
[2017-08-11] MEDS: Levothyroxine 125 MCG TAB PO SCH (07:21)
--- NOTE | 2017-08-11 07:48 | CP.PCM.DIS ---
Provider - Provider Date of Admission: 08/08/17 23:15 Attending physician: Emily Escobar MD Primary care physician: Dr Tovar at [facility]. Consults: ID: Dr Martinez. Neurology: Dr Funez. Time Spent in preparation of Discharge (in minutes): 45 Hospital Course - Lab Results Lab Results: Micro Results 08/08/17 17:00 Blood-Venous Blood Culture - Preliminary NO GROWTH AFTER 48 HOURS 08/08/17 17:00 Blood-Venous Blood Culture - Preliminary NO GROWTH AFTER 48 HOURS 08/08/17 20:15 Cerebral Spinal Fluid Gram Stain - Final 08/08/17 20:15 Cerebral Spinal Fluid CSF Culture - Preliminary NO GROWTH AFTER 24 HOURS Most Recent Lab Values WBC 5.7 K/uL (4.8-10.8) 08/10/17 05:55 RBC 4.40 Mil/uL (3.80-5.20) 08/10/17 05:55 Hgb 13.4 g/dL (12.0-16.0) 08/10/17 05:55 Hct 39.4 % (34.0-47.0) 08/10/17 05:55 MCV 89.6 fl (81.0-99.0) 08/10/17 05:55 MCH 30.4 pg (27.0-31.0) 08/10/17 05:55 MCHC 33.9 g/dL (33.0-37.0) 08/10/17 05:55 RDW 13.4 % (11.5-14.5) 08/10/17 05:55 Plt Count 204 K/uL (130-400) 08/10/17 05:55 MPV 7.7 fl (7.2-11.7) 08/10/17 05:55 Neut % (Auto) 34.7 % (50.0-75.0) L 08/10/17 05:55 Lymph % (Auto) 48.1 % (20.0-40.0) H 08/10/17 05:55 Turner % (Auto) 7.7 % (0.0-10.0) 08/10/17 05:55 Eos % (Auto) 8.6 % (0.0-4.0) H 08/10/17 05:55 Baso % (Auto) 0.9 % (0.0-2.0) 08/10/17 05:55 Neut # 2.0 K/uL (1.8-7.0) 08/10/17 05:55 Lymph # 2.7 K/uL (1.0-4.3) 08/10/17 05:55 Turner # 0.4 K/uL (0.0-0.8) 08/10/17 05:55 Eos # 0.5 K/uL (0.0-0.7) 08/10/17 05:55 Baso # 0.1 K/uL (0.0-0.2) 08/10/17 05:55 PT 10.9 Seconds (9.8-13.1) 08/08/17 17:06 INR 1.0 (0.9-1.2) 08/08/17 17:06 APTT 27.4 Seconds (25.6-37.1) 08/08/17 17:06 pO2 24 mm/Hg (30-55) L 08/08/17 00:07 VBG pH 7.40 (7.32-7.43) 08/08/17 00:07 VBG pCO2 52 mmHg (40-60) 08/08/17 00:07 VBG HCO3 28.1 mmol/L 08/08/17 00:07 VBG Total CO2 33.8 mmol/L (22-28) H 08/08/17 00:07 VBG O2 Sat (Calc) 43.6 % (40-65) 08/08/17 00:07 VBG Base Excess 6.0 mmol/L (0.0-2.0) H 08/08/17 00:07 VBG Potassium 4.1 mmol/L (3.6-5.2) 08/08/17 00:07 Sodium 140.0 mmol/L (132-148) 08/08/17 00:07 Chloride 108.0 mmol/L (98-107) H 08/08/17 00:07 Glucose 97 mg/dL (65-105) 08/08/17 00:07 Lactate 1.2 mmol/L (0.7-2.1) 08/08/17 00:07 FiO2 21.0 % 08/08/17 00:07 Sodium 141 mmol/l (132-148) 08/10/17 05:55 Potassium 3.9 MMOL/L (3.6-5.0) 08/10/17 05:55 Chloride 106 mmol/L (98-107) 08/10/17 05:55 Carbon Dioxide 24 mmol/L (22-30) 08/10/17 05:55 Anion Gap 15 (10-20) 08/10/17 05:55 BUN 13 mg/dl (7-17) 08/10/17 05:55 Creatinine 0.6 mg/dl (0.7-1.2) L 08/10/17 05:55 Est GFR ( Amer) > 60 08/10/17 05:55 Est GFR (Non-Af Amer) > 60 08/10/17 05:55 Random Glucose 102 mg/dL (65-105) 08/10/17 05:55 Calcium 9.2 mg/dL (8.4-10.2) 08/10/17 05:55 Magnesium 2.0 MG/DL (1.6-2.3) 08/09/17 07:18 Total Bilirubin 0.9 mg/dl (0.2-1.3) 08/10/17 05:55 AST 79 U/L (14-36) H 08/10/17 05:55 ALT 111 U/L (9-52) H D 08/10/17 05:55 Alkaline Phosphatase 94 U/L (38-126) 08/10/17 05:55 Troponin I < 0.0120 ng/mL (0.00-0.120) 08/08/17 17:06 Total Protein 6.9 G/DL (6.3-8.2) 08/10/17 05:55 Albumin 3.7 g/dL (3.5-5.0) 08/10/17 05:55 Globulin 3.2 gm/dL (2.2-3.9) 08/10/17 05:55 Albumin/Globulin Ratio 1.1 (1.0-2.1) 08/10/17 05:55 Procalcitonin < 0.05 NG/ML (0.19-0.49) L 08/09/17 05:50 Venous Blood Potassium 4.1 mmol/L (3.6-5.2) 08/08/17 00:07 Urine Color Yellow (YELLOW) 08/09/17 11:13 Urine Clarity Cloudy (Clear) 08/09/17 11:13 Urine pH 6.0 (5.0-8.0) 08/09/17 11:13 Ur Specific [place] 1.024 (1.003-1.030) 08/09/17 11:13 Urine Protein Negative mg/dL (NEGATIVE) 08/09/17 11:13 Urine Glucose (UA) Neg mg/dL (Normal) 08/09/17 11:13 Urine Ketones Negative mg/dL (NEGATIVE) 08/09/17 11:13 Urine Blood Negative (NEGATIVE) 08/09/17 11:13 Urine Nitrate Negative (NEGATIVE) 08/09/17 11:13 Urine Bilirubin Negative (NEGATIVE) 08/09/17 11:13 Urine Urobilinogen 0.2-1.0 mg/dL (0.2-1.0) 08/09/17 11:13 Ur Leukocyte Esterase Mod [place]ha/uL (Negative) 08/09/17 11:13 Urine RBC (Auto) 1 /hpf (0-3) 08/09/17 11:13 Urine Microscopic WBC 8 /hpf (0-5) H 08/09/17 11:13 Ur Squamous Epith Cells 16 /hpf (0-5) H 08/09/17 11:13 Amorphous Sediment Occ /ul (<OCC) H 08/09/17 11:13 Fluid Type Spinal fluid 08/08/17 20:15 CSF Volume 1 mL (0-1) 08/08/17 20:15 CSF Appearance Clear/colorless (CLEAR) 08/08/17 20:15 CSF WBC 2.0 /mm3 (0.0-5.0) 08/08/17 20:15 CSF RBC 1.0 /mm3 (0.0-0.0) H 08/08/17 20:15 CSF Total Cell Counted TEST NOT PERFORMED 08/08/17 20:15 CSF Neutrophils 2 % (0-0) H 08/08/17 20:15 CSF Lymphocytes 4.0 % (0-0) H 08/08/17 20:15 CSF Monos/Macrophages 1 % (0-0) H 08/08/17 20:15 CSF Comment TEST NOT PERFORMED 08/08/17 20:15 CSF Glucose 57 mg/dL (40-70) 08/08/17 20:15 CSF Total Protein 17.0 mg/dL (12-60) 08/08/17 20:15 EBV Capsid Ag IgG Ab 244.00 U/mL H 08/09/17 11:43 EBV Capsid Ag IgM Ab <36.00 U/mL 08/09/17 11:43 EBV Nuclear Antigen Ab 21.40 U/mL H 08/09/17 11:43 EBV Interpretation See note 08/09/17 11:43 Infectious Turner Assay Negative (NEGATIVE) 08/09/17 11:43 H.influenzae Type B Ag Negative (NEGATIVE) 08/09/17 15:15 N.meningitidis ACY/W135 Negative (NEGATIVE) 08/09/17 15:15 N.meningi B/E.coli K1 Ag Negative (NEGATIVE) 08/09/17 15:15 Group B Strep Antigen Negative (NEGATIVE) 08/09/17 15:15 S. pneumoniae Antigen Negative (NEGATIVE) 08/09/17 15:15 - Hospital Course Hospital Course: 47 y/o F with a PMHx of HTN and gastritis was admitted for evaluation of suspected meningitis. Pt presented with severe headache and suspected positive Bruzinski sign on PE. Pt received IV Ceftriaxone, Vancomycin and Acyclovir. PO Magnesium Oxide and 2mg of Decadron were given for headache analgesia, pt reported improvement. CSF Cx and Blood Cx showed NO growth after 48 hours; bacterial antigen screening on serum and urinalysis were negative. Pt remained stable, afebrile and tolerating PO during hospitalization. Will discharge pt with Rx for Magnesium Oxide. -Dr Martinez was contacted previous to discharge descision, will proceed with d /c. Will f/u CSF and blood culture final reports. - Date & Time of H&P Date of H&P: 08/09/17 Time of H&P: 00:37 Discharge Exam - Head Exam Head Exam: ATRAUMATIC, NORMAL INSPECTION, NORMOCEPHALIC - Eye Exam Eye Exam: EOMI, Normal appearance - ENT Exam ENT Exam: Mucous Membranes Dry - Neck Exam Neck exam: Full Rom, Lymphadenopathy - Respiratory Exam Respiratory Exam: Clear to PA & Lateral, NORMAL BREATHING PATTERN - Cardiovascular Exam Cardiovascular Exam: REGULAR RHYTHM, +S1, +S2 - GI/Abdominal Exam GI & Abdominal Exam: Normal Bowel Sounds, Soft. absent: Distended, Guarding, Tenderness - Extremities Exam Extremities exam: full ROM - Neurological Exam Neurological exam: Alert, Oriented x3 - Psychiatric Exam Psychiatric exam: Normal Affect, Normal Mood Discharge Plan - Discharge Medications Prescriptions: Magnesium Oxide [Mag-Ox] 400 mg PO BID #20 tab - Follow Up Plan Condition: FAIR Disposition: HOME/ ROUTINE Instructions: Viral Meningitis (DC), Migraine Headache (DC) Additional Instructions: -Follow up with PMD, Dr Coughlin at [facility] on 08/18/17 at 1:20pm. -Take PO Magnesium Oxide for headache. Can take OTC Acetaminophen/Ibuprofen for more pain relief. -Return to ER if fever, consfusion or aggravated headache. -Follow a well-balanced low fat diet and avoid greasy food and caffeine products such a tea or coffee.
[2017-08-11] MEDS: Saccharomyces Boulardi 250 mg Cap PO SCH (08:52)
[2017-08-11] MEDS: Magnesium Oxide 400 mg Tab UD PO SCH (08:52)
[2017-08-11 09:02] VITALS: BP 120/77; PULSE 67; RESP 20; O2SAT 97
--- NOTE | 2017-08-11 11:53 | CP.PCM.PN ---
Subjective - Date & Time of Evaluation Date of Evaluation: 08/11/17 Time of Evaluation: 11:51 - Subjective Subjective: Ms. royal was seen and examined at the bedside. She is alert, oriented in all spheres, mainly speaks Faroese. She is able to answer questions appropriately and follow simple commands. She claims of experiencing mild headache with pain sacle 4/10, frontal, non radiating. She claims of experiencing mild dizziness with sudden change of position. She denies any blurred vision, nausea, or vomiting. She can move her head spontaneously. There was no untoward events overnight. Objective - Vital Signs/Intake and Output Vital Signs (last 24 hours): Temp Pulse Resp BP Pulse Ox 97.6 F 67 20 120/77 97 08/11/17 09:00 08/11/17 09:00 08/11/17 09:00 08/11/17 09:00 08/11/17 09:00 - Medications Medications: Current Medications Acetaminophen (Tylenol 325mg Tab) 650 mg PO Q6 PRN PRN Reason: Pain, Mild (1-3) Last Admin: 08/09/17 19:01 Dose: 650 mg Enoxaparin Sodium (Lovenox) 40 mg SC HS [facility] PRN Reason: Protocol Last Admin: 08/10/17 21:36 Dose: 40 mg Famotidine (Pepcid) 10 mg PO DAILY [facility] Ibuprofen (Motrin Tab) 600 mg PO Q6 PRN PRN Reason: Pain, moderate (4-7) Last Admin: 08/11/17 03:12 Dose: 600 mg Levothyroxine Sodium (Synthroid) 125 mcg PO QAM@0630 [facility] Last Admin: 08/11/17 07:21 Dose: 125 mcg Magnesium Oxide (Mag-Ox) 400 mg PO BID [facility] Last Admin: 08/11/17 08:52 Dose: 400 mg - Labs Labs: 08/10/17 05:55 08/10/17 05:55 PT 10.9 Seconds (9.8-13.1) 08/08/17 17:06 INR 1.0 (0.9-1.2) 08/08/17 17:06 APTT 27.4 Seconds (25.6-37.1) 08/08/17 17:06 - Constitutional Appears: Well, No Acute Distress - Head Exam Head Exam: ATRAUMATIC, NORMAL INSPECTION, NORMOCEPHALIC - Neurological Exam Neurological Exam: Alert, Awake, CN II-XII Intact, Oriented x3 Neuro motor strength exam: Left Upper Extremity: 5, Right Upper Extremity: 5, Left Lower Extremity: 5, Right Lower Extremity: 5 Additional comments: Neurological unchanged form previous examination. Assessment and Plan (1) Meningitis Assessment & Plan: Case discussed with Dr. Funez, continue all current medical regimen, monitor for seizure. There is no new recommendations from neurology. Status: Acute
[2017-08-12] MEDS ORDERED: Famotidine 40 MG/5 ML PO SCH (09:00)
== END 2017-08-11 12:38 | disposition home or self-care (01) | DRG 888 ==
LOC: H.ER 16:23 → UNDOADMIN 23:15 → H.ERHOLD 23:15 → H.MEDSURG1 08-09 00:56
PROVIDERS: ADMIT Family Medicine Geriatric Medicine; ATTEND Family Medicine Geriatric Medicine
PROC: 009U3ZX Drainage of Spinal Canal, Percutaneous Approach, Diagnostic (ICD-10-PCS; principal; 2017-08-08)
DX: G03.0 Nonpyogenic meningitis (principal); R29.1 Meningismus; K76.0 Fatty (change of) liver, not elsewhere classified; E03.9 Hypothyroidism, unspecified; I10 Essential (primary) hypertension; K29.70 Gastritis, unspecified, without bleeding; Z90.49 Acquired absence of other specified parts of digestive tract

== ENCOUNTER 2017-11-19 10:50 | Emergency (ER) | payer SELFPAY ==
[2017-11-19 10:50] VITALS: BMI 28.0
--- NOTE | 2017-11-19 11:58 | ED PDOC ---
HPI: Headache Time Seen by Provider: 11/19/17 11:12 Chief Complaint (Nursing): Headache Chief Complaint (Provider): Headache History Per: Patient History/Exam Limitations: no limitations Onset/Duration Of Symptoms: Days (x 2) Additional Complaint(s): 47 years old female presents to the ED complaining of frontal headache associated with dizziness and sinus congestion onset 2 days. Patient reports she fell today after feeling dizzy and injured her left upper extremity. She states she was admitted in July for headache workup in conclusive including LB, neurological and ID evaluations. Patient denies experiencing loss of consciousness. PMD: non provided Past Medical History Reviewed: Historical Data, Nursing Documentation, Vital Signs - Medical History PMH: Gastritis, Hypothyroidism, Chronic Pain (chronic abd pain) Denies: HIV, Chronic Kidney Disease - Surgical History Surgical History: Cholecystectomy, Endoscopy - Family History Family History: States: Unknown Family Hx - Social History Current smoker - smoking cessation education provided: No Alcohol: None Drugs: Denies - Home Medications Home Medications: Ambulatory Orders Medication Instructions Recorded Levothyroxine [Synthroid] 125 mcg PO QAM 08/08/17 Albuterol HFA [Ventolin HFA 90 2 puff INH Q4 PRN 08/09/17 mcg/actuation (8 g)] Ranitidine HCl [[place] 75] 75 mg PO DAILY 08/09/17 Magnesium Oxide [Mag-Ox] 400 mg PO BID #20 tab 08/11/17 Ibuprofen [Motrin Tab] 600 mg PO Q8 PRN #30 tab 11/19/17 - Allergies Allergies/Adverse Reactions: Allergies Allergy/AdvReac Type Severity Reaction Status Date / Time pineapple AdvReac SWELLING Verified 08/08/17 16:25 iv contrast AdvReac Intermediate SHORTNESS Uncoded 08/09/17 00:31 OF BREATH Review of Systems ROS Statement: Except As Marked, All Systems Reviewed And Found Negative Musculoskeletal: Positive for: Shoulder Pain (Left), Hand Pain (Left wrist) Neurological: Positive for: Headache (Frontal), Dizziness Physical Exam - Reviewed Nursing Documentation Reviewed: Yes Vital Signs Reviewed: Yes - Physical Exam Appears: Positive for: Non-toxic, No Acute Distress Head Exam: Positive for: ATRAUMATIC, NORMOCEPHALIC Eye Exam: Positive for: Normal appearance, EOMI, PERRL Neck: Positive for: Normal, Painless ROM, Supple Cardiovascular/Chest: Positive for: Regular Rate, Rhythm. Negative for: Murmur Respiratory: Positive for: Normal Breath Sounds. Negative for: Respiratory Distress Extremity: Positive for: Normal ROM, Tenderness (Left should and left wrist). Negative for: Deformity Neurologic/Psych: Positive for: Alert, Oriented. Negative for: Motor/Sensory Deficits Medical Decision Making Medical Decision Making: Time: 1146 Initial Plan: --CT Head w/o contrast --Urine --Toradol --Left hand 3 Views --Left Shoulder --Left Wrist 3 Views --Glucose, POC Time: 1307 CT Upper Extremity W/O Contrast is ordered. Scribe Attestation: Documented by Yaneth Wolf, acting as a scribe for Cash Coto MD. Provider Scribe Attestation: All medical record entries made by the Scribe were at my direction and personally dictated by me. I have reviewed the chart and agree that the record accurately reflects my personal performance of the history, physical exam, medical decision making, and the department course for this patient. I have also personally directed, reviewed, and agree with the discharge instructions and disposition. Disposition - Clinical Impression Clinical Impression: Scaphoid fracture, wrist, closed, Fx capitate bone-closed - Patient ED Disposition Is Patient to be Admitted: Transfer of Care - Disposition Referrals: José Montgomery III, MD [Staff Provider] - 11/21/17 Disposition: Transfer of Care Disposition Time: 15:00 Condition: STABLE Prescriptions: Ibuprofen [Motrin Tab] 600 mg PO Q8 PRN #30 tab PRN Reason: Pain, Moderate (4-7) Instructions: Wrist Fracture (DC) Patient Signed Over To: Mary Costa
--- NOTE | 2017-11-19 12:19 | CT ---
PROCEDURE: CT HEAD WITHOUT CONTRAST. HISTORY: r/o bleed COMPARISON: CT head dated 08/08/2017. TECHNIQUE: Axial computed tomography images were obtained through the head/brain without intravenous contrast. Radiation dose: Total exam DLP = 822.7 mGy-cm. This CT exam was performed using one or more of the following dose reduction techniques: Automated exposure control, adjustment of the mA and/or kV according to patient size, and/or use of iterative reconstruction technique. FINDINGS: HEMORRHAGE: No intracranial hemorrhage. BRAIN: No mass effect or edema. No atrophy or chronic microvascular ischemic changes. VENTRICLES: Unremarkable. No hydrocephalus. CALVARIUM: Unremarkable. PARANASAL SINUSES: Right maxillary sinus secretions. Scattered right ethmoid air cell opacification MASTOID AIR CELLS: Unremarkable as visualized. No inflammatory changes. OTHER FINDINGS: Stable punctate hyperdense focus in the region of the 3rd ventricle/foramen of Monro may represent a colloid cyst. IMPRESSION: No acute intracranial pathology.
--- NOTE | 2017-11-19 12:25 | RAD ---
PROCEDURE: Radiographs of the Left Shoulder HISTORY: trauma COMPARISON: No prior. FINDINGS: BONES: No acute fracture. JOINTS: Unremarkable. SOFT TISSUES: Normal. OTHER FINDINGS: None. IMPRESSION: No demonstrated fracture or dislocation.
--- NOTE | 2017-11-19 12:26 | RAD ---
PROCEDURE: Left Wrist Radiographs. HISTORY: trauma COMPARISON: None. FINDINGS: BONES: Nondisplaced scaphoid waist fracture. JOINTS: Unremarkable. SOFT TISSUES: Normal. OTHER FINDINGS: None. IMPRESSION: Nondisplaced scaphoid waist fracture.
--- NOTE | 2017-11-19 15:38 | CT ---
EXAM: CT Left Upper Extremity Without Intravenous Contrast, Wrist EXAM DATE/TIME: 11/19/2017 1:07 PM CLINICAL HISTORY: 47 years old, female; Injury or trauma; Fall; Initial encounter; Sprain or strain; Wrist; Left; Additional info: Scaphoid FX TECHNIQUE: Axial computed tomography images of the left wrist without intravenous contrast. All CT scans at this facility use one or more dose reduction techniques, viz.: automated exposure control; ma/kV adjustment per patient size (including targeted exams where dose is matched to indication; i.e. head); or iterative reconstruction technique. Coronal and sagittal reformatted images were created and reviewed. COMPARISON: No relevant prior studies available. FINDINGS: Bones/joints: Nondisplaced hairline fracture through the waist of the scaphoid. No displacement. Linear lucency at medial distal portion of the capitate (coronal image 38, axial images 32). No dislocation. Soft tissues: Unremarkable. IMPRESSION: 1. Nondisplaced fracture through waist of scaphoid. 2. Nondisplaced fracture capitate.
--- NOTE | 2017-11-19 16:19 | ED PDOC ---
Disposition - Clinical Impression Clinical Impression: Scaphoid fracture, wrist, closed, Fx capitate bone-closed - POA Present On Arrival: None - Disposition Referrals: José Montgomery III, MD [Staff Provider] - Disposition: Routine/Home Forms: Doctor Evidence (Wallisian)
--- NOTE | 2017-11-19 17:04 | ED PDOC ---
Medical Decision Making Medical Decision Making: Time: 1500 Patient signed out to me by Dr. Marx. Patient with scaphoid fracture, discussed with Dr. Montgomery who recommended CT. Patient currently pending CT report. Time: 1540 CT Left upper extremity FINDINGS: Bones/joints: Nondisplaced hairline fracture through the waist of the scaphoid. No displacement. Linear lucency at medial distal portion of the capitate (coronal image 38, axial images 32). No dislocation. Soft tissues: Unremarkable. IMPRESSION: 1. Nondisplaced fracture through waist of scaphoid. 2. Nondisplaced fracture capitate. Time: [address] Montgomery, patient will have thumb spica and follow up in office on Monday. Scribe Attestation: Documented by Shaina Zapien acting as a scribe for Mary Costa MD Provider Attestation: All medical record entries made by the Scribe were at my direction and personally dictated by me. I have reviewed the chart and agree that the record accurately reflects my personal performance of the history, physical exam, medical decision making, and the department course for this patient. I have also personally directed, reviewed, and agree with the discharge instructions and disposition. Disposition - Clinical Impression Clinical Impression: Scaphoid fracture, wrist, closed, Fx capitate bone-closed - POA Present On Arrival: Falls Or Trauma - Disposition Referrals: José Montgomery III, MD [Staff Provider] - 11/21/17 Disposition: Routine/Home Disposition Time: 17:02 Condition: STABLE Prescriptions: Ibuprofen [Motrin Tab] 600 mg PO Q8 PRN #30 tab PRN Reason: Pain, Moderate (4-7) Instructions: Wrist Fracture (DC)
[2017-11-19 17:39] VITALS: RESP 18; TEMP 98.3; O2SAT 97
[2017-11-19 17:42] VITALS: BP 122/83; PULSE 90
== END 2017-11-19 17:15 | disposition home or self-care (01) ==
LOC: H.ER 10:50
DX: R42 Dizziness and giddiness (principal); S62.002A Unspecified fracture of navicular [scaphoid] bone of left wrist, initial encounter for closed fracture; W19.XXXA Unspecified fall, initial encounter; Y92.89 Other specified places as the place of occurrence of the external cause; E03.9 Hypothyroidism, unspecified; G89.29 Other chronic pain
CPT/HCPCS: 29125; 70450; 73030; 73110; 73130; 73200; 81025; 82948; 96372; 99285; J1885

== ENCOUNTER 2018-04-24 08:05 | Day surgery (SDC) | payer SELFPAY ==
[2018-04-24] MEDS ORDERED: Lactated Ringer's 500 ML IV ONE (08:31)
[2018-04-24] MEDS ORDERED: Midazolam 2 MG/2 ML VIAL ONE (09:48)
[2018-04-24] MEDS ORDERED: Propofol 10 mg/ml Inj (20 ML) ONE (09:48)
[2018-04-24 10:21] VITALS: RESP 18; TEMP 97
[2018-04-24 10:25] VITALS: BP 102/58; PULSE 65; O2SAT 97
== END 2018-04-24 11:33 | disposition home or self-care (01) ==
LOC: H.ENDO 08:05
PROVIDERS: ATTEND Internal Medicine Gastroenterology
DX: R10.13 Epigastric pain (principal); E03.9 Hypothyroidism, unspecified; K22.8 Other specified diseases of esophagus; K29.70 Gastritis, unspecified, without bleeding; K29.60 Other gastritis without bleeding; K20.9 Esophagitis, unspecified
CPT/HCPCS: 43239; 88305; J2250; J2704; J7120

== ENCOUNTER 2018-05-19 20:15 | Emergency (ER) | payer SELFPAY ==
[2018-05-19 20:16] VITALS: BMI 28.0
[2018-05-19] MEDS ORDERED: Sodium Chloride 0.9% 1,000 ML IV STA (21:18)
--- NOTE | 2018-05-19 21:49 | ED PDOC ---
HPI: Abdomen Time Seen by Provider: 05/19/18 21:16 Chief Complaint (Nursing): Abdominal Pain Chief Complaint (Provider): Abdominal Pain History Per: Patient History/Exam Limitations: no limitations Onset/Duration Of Symptoms: Days (x1) Current Symptoms Are (Timing): Still Present Additional Complaint(s): 47 year old male with a history of hypothyroidism presents to the ED with abdominal pain, vomiting, and diarrhea for one day. This morning, he developed abdominal pain associated multiple episodes of nonbloody bilious diarrhea and multiple episodes of nonbloody, bilious vomiting. No further complaints. PMD: Dr. Mendes Past Medical History Reviewed: Historical Data, Nursing Documentation, Vital Signs Vital Signs: Last Vital Signs Temp 97.9 F 05/19/18 21:10 Pulse 92 H 05/19/18 21:10 Resp 16 05/19/18 21:10 BP 172/93 H 05/19/18 21:10 Pulse Ox 99 05/19/18 21:10 - Medical History PMH: Hypothyroidism, Chronic Pain (chronic abd pain) Denies: HIV, Chronic Kidney Disease - Surgical History Surgical History: Cholecystectomy, Endoscopy Other surgeries: tubal ligation - Family History Family History: States: Unknown Family Hx - Social History Current smoker - smoking cessation education provided: No Ex-Smoker (has not smoked in the last 12 months): No Alcohol: None Drugs: Denies - Home Medications Home Medications: Ambulatory Orders Medication Instructions Recorded Levothyroxine [Synthroid] 125 mcg PO QAM 08/08/17 Albuterol HFA [Ventolin HFA 90 2 puff INH Q4 PRN 08/09/17 mcg/actuation (8 g)] Ciprofloxacin/Ciprofloxa HCl 500 mg PO Q12 #14 tab 05/20/18 [Ciprofloxacin] Dicyclomine [Bentyl] 20 mg PO Q12 PRN #20 tab 05/20/18 Ondansetron ODT [Zofran ODT] 4 mg PO Q6H PRN #8 odt 05/20/18 - Allergies Allergies/Adverse Reactions: Allergies Allergy/AdvReac Type Severity Reaction Status Date / Time Iodinated Contrast- Oral and Allergy SHORTNESS Verified 05/19/18 21:09 IV Dye OF BREATH pineapple AdvReac SWELLING Verified 05/19/18 21:09 iv contrast AdvReac Intermediate SHORTNESS Uncoded 05/19/18 21:09 OF BREATH Review of Systems ROS Statement: Except As Marked, All Systems Reviewed And Found Negative Gastrointestinal: Positive for: Vomiting, Abdominal Pain, Diarrhea Physical Exam - Reviewed Nursing Documentation Reviewed: Yes Vital Signs Reviewed: Yes - Physical Exam Appears: Positive for: Uncomfortable Head Exam: Positive for: ATRAUMATIC, NORMOCEPHALIC Skin: Positive for: Normal Color, Warm, Dry Eye Exam: Positive for: Normal appearance, EOMI, PERRL ENT: Positive for: Other (dry mucous membranes) Cardiovascular/Chest: Positive for: Regular Rate, Rhythm. Negative for: Murmur Respiratory: Positive for: Normal Breath Sounds. Negative for: Respiratory Distress Gastrointestinal/Abdominal: Positive for: Tenderness (right lower quadrant tenderness) Extremity: Positive for: Normal ROM (upper and lower). Negative for: Pedal Edema, Deformity Neurologic/Psych: Positive for: Alert, Oriented (x3) - Laboratory Results Result Diagrams: 05/19/18 21:50 05/19/18 21:50 - ECG O2 Sat by Pulse Oximetry: 99 (RA) Pulse Ox Interpretation: Normal Medical Decision Making Medical Decision Making: Time: 2116 Initial Impression: 47 year old with diarrheal illness and RLQ tenderness Initial Plan: --labs --CT --IV fluids --Zofran --Bentyl Time: 03:20 CT Abd/Pelvis FINDINGS: LUNG BASES: The lung bases appear clear. No pleural effusions are seen. LIVER: There is diffuse hepatic hypoattenuation compatible with fatty infiltration. The liver is enlarged, 20 cm. GALLBLADDER AND BILE DUCTS: S/p cholecystectomy. Surgical clips are noted in the gallbladder fossa. PANCREAS: Unremarkable. SPLEEN: Unremarkable. ADRENAL GLANDS: Unremarkable. KIDNEYS, URETERS, AND BLADDER: The kidneys appear within normal limits. There is no hydronephrosis or hydroureter. No urinary calculi are seen. STOMACH AND BOWEL: Note is made of distended thick walled stomach and fluid filled thick walled duodenum/jejunum compatible with gastroenteritis. Consider consultation with GI service and follow up with upper endoscopy. APPENDIX: No evidence of acute appendicitis on CT examination. PERITONEUM: No free fluid. No free air. LYMPH NODES: No lymphadenopathy is evident. REPRODUCTIVE: Unremarkable as visualized. VASCULATURE: No evidence of abdominal aortic aneurysm. BONES: No aggressive appearing osseous lesion. No acute osseous pathology evident. IMPRESSION: Fatty liver. Gastroenteritis. Consider consultation with GI service and follow up with up per endoscopy. Time: 03:46 Patient reports marked improvement and is stable for discharge. Diagnosis is gastroenteritis and UTI. Return precautions were provided. Scribe Attestation: Documented by Tammy Chand, acting as a scribe for Elliot Cantu MD Provider Scribe Attestation: All medical record entries made by the Scribe were at my direction and personally dictated by me. I have reviewed the chart and agree that the record accurately reflects my personal performance of the history, physical exam, medical decision making, and the department course for this patient. I have also personally directed, reviewed, and agree with the discharge instructions and disposition. Disposition - Clinical Impression Clinical Impression: Gastroenteritis, UTI (urinary tract infection) - Patient ED Disposition Is Patient to be Admitted: No - Disposition Disposition: Routine/Home Disposition Time: 03:46 Condition: STABLE Additional Instructions: [facility], thank you for letting us take care of you today. Your provider was Elliot Cantu MD and you were treated for ABD PAIN. The emergency medical care you received today was directed at your acute symptoms. If you were prescribed any medication, please fill it and take as directed. It may take several days for your symptoms to resolve. Return to the Emergency Department if your symptoms worsen, do not improve, or if you have any other problems. Please contact your doctor or call one of the physicians/clinics you have been referred to that are listed on the Patient Visit Information form that is included in your discharge packet. Bring any paperwork you were given at discharge with you along with any medications you are taking to your follow up visit. Our treatment cannot replace ongoing medical care by a primary care provider outside of the emergency department. Thank you for allowing the [facility] team to be part of your care today. If you had an X-Ray or CT scan: A Radiologist will review the ED reading if any change in treatment is needed we will contact you. If you had a blood, urine, or wound culture: It will take several days for the results, if any change in treatment is needed we will contact you. If you had an STI test: It will take 48 hours for the results. Please call after 1 week if you have not heard back. Prescriptions: Ciprofloxacin/Ciprofloxa HCl [Ciprofloxacin] 500 mg PO Q12 #14 tab Dicyclomine [Bentyl] 20 mg PO Q12 PRN #20 tab PRN Reason: abdominal pain/diarrhea Ondansetron ODT [Zofran ODT] 4 mg PO Q6H PRN #8 odt PRN Reason: Nausea/Vomiting Instructions: Urinary Tract Infections in Adults, Gastroenteritis (ED)
[2018-05-19] MEDS ORDERED: Barium Sulfate Susp 2.1% w/v, 2.0% w/w 450 mL Bottle PO ONE ×3 (22:00)
[2018-05-19 22:18] LABS: BASO # 0.1 K/uL (0.0-0.2); BASO % 0.7 % (0.0-2.0); EOS # 0.3 K/uL (0.0-0.7); EOS % 4.1 % (0.0-4.0); HEMOGLOBIN 14.4 g/dL (12.0-16.0); LYMPH # 3.4 K/uL (1.0-4.3); LYMPH % 43.2 % (20.0-40.0); MEAN CELL VOLUME 89.2 fl (81.0-99.0); MEAN CORPUSCULAR HEMOGLOBIN 30.6 pg (27.0-31.0); MEAN CORPUSCULAR HGB CONC 34.3 g/dL (33.0-37.0); MEAN PLATELET VOLUME 7.6 fl (7.2-11.7); MONO # 0.6 K/uL (0.0-0.8); MONO % 7.5 % (0.0-10.0); NEUT # 3.5 K/uL (1.8-7.0); NEUT % 44.5 % (50.0-75.0); NRBC % 0.1 % (0.0-0.0); RBC 4.71 Mil/uL (3.80-5.20); RED CELL DISTRIBUTION WIDTH 13.4 % (11.5-14.5); WHITE BLOOD COUNT 7.9 K/uL (4.8-10.8)
[2018-05-19 22:20] LABS: SQUAMOUS EPITHIAL 9 /hpf (0-5); URINE BACTERIA RARE (<OCC); URINE BILIRUBIN NEGATIVE (NEGATIVE); URINE BLOOD NEGATIVE (NEGATIVE); URINE CLARITY CLOUDY (Clear); URINE COLOR YELLOW (YELLOW); URINE GLUCOSE (UA) NEG (Normal); URINE LEUKOCYTE ESTERASE LARGE Leu/uL (Negative); URINE PROTEIN NEGATIVE (NEGATIVE); URINE UROBILINOGEN 0.2-1.0 mg/dL (0.2-1.0)
[2018-05-19 22:25] LABS: ALB/GLOB RATIO 1.2 (1.0-2.1); ALBUMIN 4.4 g/dL (3.5-5.0); ALT/SGPT 69 U/L (9-52); AST/SGOT 56 U/L (14-36); BLOOD UREA NITROGEN 12 mg/dl (7-17); CALCIUM 9.4 mg/dL (8.4-10.2); GFR NON-AFRICAN AMERICAN > 60; LIPASE 99 U/L (23-300)
[2018-05-19] MEDS ORDERED: cefTRIAXone (Rocephin) 1 gm Inj ONE (23:14)
[2018-05-19] MEDS ORDERED: Morphine 4 MG/ML VIAL ONE (23:39)
[2018-05-20 00:14] VITALS: RESP 18; O2SAT 99
[2018-05-20 05:56] VITALS: BP 125/57; PULSE 67; TEMP 98
--- NOTE | 2018-05-20 08:17 | CT ---
Date of service: 05/20/2018 PROCEDURE: CT Abdomen and Pelvis without intravenous contrast HISTORY: abd pain COMPARISON: None. TECHNIQUE: Technique. Contrast dose: Radiation dose: Total exam DLP = 819.76 mGy-cm. This CT exam was performed using one or more of the following dose reduction techniques: Automated exposure control, adjustment of the mA and/or kV according to patient size, and/or use of iterative reconstruction technique. FINDINGS: LOWER THORAX: Unremarkable. LIVER: Fatty liver. GALLBLADDER AND BILE DUCTS: Cholecystectomy. PANCREAS: Unremarkable. No gross lesion or ductal dilatation. SPLEEN: Unremarkable. ADRENALS: Unremarkable. No mass. KIDNEYS AND URETERS: Unremarkable. No hydronephrosis. No solid mass. VASCULATURE: Unremarkable. No aortic aneurysm. No aortic atherosclerotic calcification or mural plaque present. BOWEL: Unremarkable. No obstruction. No gross mural thickening. APPENDIX: Unremarkable. Normal appendix. PERITONEUM: Unremarkable. No free fluid. No free air. LYMPH NODES: Unremarkable. No enlarged lymph nodes. BLADDER: Unremarkable. REPRODUCTIVE: Status post tubal ligation BONES: No acute fracture. OTHER FINDINGS: None. IMPRESSION: No acute pathology.
== END 2018-05-20 04:55 | disposition home or self-care (01) ==
LOC: H.ER 20:15
DX: K52.9 Noninfective gastroenteritis and colitis, unspecified (principal); N39.0 Urinary tract infection, site not specified
CPT/HCPCS: 74176; 80053; 81003; 81025; 83690; 85025; 87040; 87086; 96361; 96365; 96375; 96376; 99284; J0696; J2270; J2405; J7030

== ENCOUNTER 2018-07-31 21:07 | Emergency (ER) | payer SELFPAY ==
[2018-07-31 21:07] VITALS: BMI 28.0
[2018-07-31 21:18] VITALS: BP 143/92; PULSE 73; RESP 16; TEMP 98; O2SAT 100
[2018-07-31] MEDS ORDERED: Barium Sulfate Susp 2.1% w/v, 2.0% w/w 450 mL Bottle PO ONE ×3 (22:00)
--- NOTE | 2018-07-31 22:34 | ED PDOC ---
HPI: Abdomen Time Seen by Provider: 07/31/18 21:25 Chief Complaint (Nursing): Chest Pain Chief Complaint (Provider): Abdominal Pain History Per: Patient History/Exam Limitations: no limitations Onset/Duration Of Symptoms: Days (x1) Current Symptoms Are (Timing): Still Present Additional Complaint(s): Patient is a 48 y/o female with a PMHx of hypothyroidism, gastritis, and chronic abdominal pain who presents to the ED for evaluation of blood-tinged, non-bloody vomiting and eight episodes of watery, non-bloody diarrhea since yesterday. Patient states the following symptoms are associated with her abdominal pain and distension. Patient reports she has experienced similar episodes of these symptoms in the past. Patient was instructed by Dr. Do to followup in [facility] in September for her gastritis. PCP: [facility] Past Medical History Reviewed: Historical Data, Nursing Documentation, Vital Signs Vital Signs: Last Vital Signs Temp 98.0 F 07/31/18 21:15 Pulse 73 07/31/18 21:15 Resp 16 07/31/18 21:15 BP 143/92 H 07/31/18 21:15 Pulse Ox 100 07/31/18 21:15 - Medical History PMH: Hypothyroidism, Chronic Pain (chronic abd pain) Denies: HIV, Chronic Kidney Disease - Surgical History Surgical History: Cholecystectomy, Endoscopy Other surgeries: Tubal Ligation - Family History Family History: States: Unknown Family Hx - Home Medications Home Medications: Ambulatory Orders Medication Instructions Recorded RX: Levothyroxine [Synthroid] 125 mcg PO QAM 08/08/17 RX: Albuterol HFA [Ventolin HFA 90 2 puff INH Q4 PRN 08/09/17 mcg/actuation (8 g)] Ciprofloxacin/Ciprofloxa HCl 500 mg PO Q12 #14 tab 05/20/18 [Ciprofloxacin] Dicyclomine [Bentyl] 20 mg PO Q12 PRN #20 tab 05/20/18 Ondansetron ODT [Zofran ODT] 4 mg PO Q6H PRN #8 odt 05/20/18 Ciprofloxacin HCl [Cipro] 250 mg PO BID #6 tab 07/31/18 Omeprazole Magnesium [Prilosec Otc] 20 mg PO DAILY #30 tcp 07/31/18 Ondansetron ODT [Zofran ODT] 1 odt PO Q6 PRN #20 odt 07/31/18 RX: traMADol [Ultram] 50 mg PO TID PRN #15 tab 07/31/18 - Allergies Allergies/Adverse Reactions: Allergies Allergy/AdvReac Type Severity Reaction Status Date / Time Iodinated Contrast- Oral and Allergy SHORTNESS Verified 05/19/18 21:09 IV Dye OF BREATH pineapple AdvReac SWELLING Verified 05/19/18 21:09 iv contrast AdvReac Intermediate SHORTNESS Uncoded 05/19/18 21:09 OF BREATH Review of Systems ROS Statement: Except As Marked, All Systems Reviewed And Found Negative (as per HPI) Gastrointestinal: Positive for: Vomiting (blood-tinged, non-bilious), Abdominal Pain, Diarrhea (x8; watery, non-bloody) Physical Exam - Reviewed Nursing Documentation Reviewed: Yes Vital Signs Reviewed: Yes - Physical Exam Appears: Positive for: In Acute Distress (mild painful) Head Exam: Positive for: ATRAUMATIC, NORMOCEPHALIC Skin: Positive for: Warm, Dry Eye Exam: Positive for: EOMI, PERRL ENT: Negative for: Pharyngeal Erythema, Tonsillar Exudate Neck: Positive for: Painless ROM, Supple Cardiovascular/Chest: Positive for: Regular Rate, Rhythm. Negative for: Murmur Respiratory: Positive for: Normal Breath Sounds. Negative for: Wheezing Gastrointestinal/Abdominal: Positive for: Tenderness (epigastric; to palpation), Distended (softly). Negative for: Mass, Guarding, Rebound Back: Positive for: Normal Inspection. Negative for: Decreased ROM Extremity: Positive for: Normal ROM. Negative for: Deformity Lymphatic: Negative for: Adenopathy Neurologic/Psych: Positive for: Alert. Negative for: Motor/Sensory Deficits - Laboratory Results Result Diagrams: 07/31/18 22:25 07/31/18 22:25 - ECG O2 Sat by Pulse Oximetry: 100 (RA) Pulse Ox Interpretation: Normal Medical Decision Making Medical Decision Making: Time: 2200 Impression: Recurring Abdominal Pain and Gastroenteritis Reviewed patients previous charts. Patient has had 14 CT scans since 2013. Last CT scan was in May 2018. Scan demonstrated enlarged liver and gastroenteritis. Will await lab results to determine any further need for additional imaging. Will focus on symptomatic and electrolyte repletion if neces yue. Plan: Type and Screen CT Abd & Pelvis w/ PO Contrast CMP Lact Acid, Plasma Lipase Urine EKG CBC PTT Prothrombin Time Protonix Inj 40 mg IVP Zofran Inj 8 mg IV Urine Culture UA Labs demonstrate possible UTI. Otherwise no emergently significant abnormalities. No episodes of vomiting in ER. DW pt findings. Pt concerned that her appointment with specialist is not until September. Advised to call GI clinic regularly to see if any appointment cancellations and to followup this week with [facility]. Scribe Attestation: Documented by Poncho Dugan, acting as a scribe for provider Mary Costa MD All medical record entries made by the Scribe were at my direction and personally dictated by me. I have reviewed the chart and agree that the record accurately reflects my personal performance of the history, physical exam, medical decision making, and the department course for this patient. I have also personally directed, reviewed, and agree with the discharge instructions and disposition. Disposition - Clinical Impression Clinical Impression: Chronic abdominal pain, Gastroenteritis Counseled Patient/Family Regarding: Studies Performed, Diagnosis, Need For Followup, Rx Given - Disposition Referrals: [facility] [Outside] - 08/01/18 ([facility]) Disposition: Routine/Home Disposition Time: 23:54 Condition: STABLE Prescriptions: Ciprofloxacin HCl [Cipro] 250 mg PO BID #6 tab Omeprazole Magnesium [Prilosec Otc] 20 mg PO DAILY #30 tcp Ondansetron ODT [Zofran ODT] 1 odt PO Q6 PRN #20 odt PRN Reason: Nausea/Vomiting RX: traMADol [Ultram] 50 mg PO TID PRN #15 tab PRN Reason: SEVERE PAIN ONLY Instructions: Chronic Pain (DC), Nonalcoholic Fatty Liver Disease (DC) Print Language: MACEDONIAN
[2018-07-31 22:38] LABS: BASO # 0.1 K/uL (0.0-0.2); BASO % 1.1 % (0.0-2.0); EOS # 0.4 K/uL (0.0-0.7); EOS % 6.6 % (0.0-4.0); HEMOGLOBIN 13.5 g/dL (12.0-16.0); LYMPH # 3.3 K/uL (1.0-4.3); LYMPH % 49.8 % (20.0-40.0); MEAN CELL VOLUME 89.4 fl (81.0-99.0); MEAN CORPUSCULAR HEMOGLOBIN 30.1 pg (27.0-31.0); MEAN CORPUSCULAR HGB CONC 33.7 g/dL (33.0-37.0); MEAN PLATELET VOLUME 7.7 fl (7.2-11.7); MONO # 0.5 K/uL (0.0-0.8); MONO % 8.1 % (0.0-10.0); NEUT # 2.3 K/uL (1.8-7.0); NEUT % 34.4 % (50.0-75.0); NRBC % 0.1 % (0.0-0.0); RBC 4.47 Mil/uL (3.80-5.20); RED CELL DISTRIBUTION WIDTH 13.7 % (11.5-14.5); WHITE BLOOD COUNT 6.5 K/uL (4.8-10.8)
[2018-07-31 22:40] LABS: PROTHROMBIN TIME 11.6 Seconds (9.8-13.1)
[2018-07-31 22:42] LABS: PARTIAL THROMBOPLASTIN TIME 30.2 Seconds (25.6-37.1)
[2018-07-31 22:48] LABS: SQUAMOUS EPITHIAL 6 /hpf (0-5); URINE BACTERIA RARE (<OCC); URINE BILIRUBIN NEGATIVE (NEGATIVE); URINE BLOOD NEGATIVE (NEGATIVE); URINE CLARITY SLIGHTY-CLOUDY (Clear); URINE COLOR STRAW (YELLOW); URINE GLUCOSE (UA) NEG (NEGATIVE); URINE LEUKOCYTE ESTERASE MOD Leu/uL (Negative); URINE PROTEIN NEGATIVE (NEGATIVE); URINE UROBILINOGEN 0.2-1.0 mg/dL (0.2-1.0)
[2018-07-31 22:55] LABS: ALB/GLOB RATIO 1.2 (1.0-2.1); ALT/SGPT 72 U/L (9-52); AST/SGOT 61 U/L (14-36); BLOOD UREA NITROGEN 14 mg/dl (7-17); GFR NON-AFRICAN AMERICAN > 60; LIPASE 96 U/L (23-300)
--- NOTE | 2018-08-01 10:24 | CARD ---
APPROVED REPORT Date of service: 07/31/2018 EKG Measurement Heart [id number] <Conclusion> Normal sinus rhythm Normal ECG
== END 2018-08-01 00:32 | disposition home or self-care (01) ==
LOC: H.ER 21:07
DX: K52.9 Noninfective gastroenteritis and colitis, unspecified (principal); G89.29 Other chronic pain; E03.9 Hypothyroidism, unspecified
CPT/HCPCS: 80053; 81003; 81025; 83605; 83690; 85025; 85610; 85730; 86850; 86900; 87086; 93005; 96374; 99283; C9113; J2405

== ENCOUNTER 2018-08-03 10:04 | Observation (INO) | payer SELFPAY ==
[2018-08-03 10:10] VITALS: BMI 30.7
[2018-08-03] MEDS ORDERED: Sodium Chloride 0.9% 1,000 ML IV STA ×2 (10:44→18:59)
[2018-08-03 11:25] LABS: BASO % 0.8 % (0.0-2.0); EOS # 0.4 K/uL (0.0-0.7); EOS % 6.7 % (0.0-4.0); HEMOGLOBIN 13.5 g/dL (12.0-16.0); LYMPH % 46.2 % (20.0-40.0); MEAN CELL VOLUME 89.5 fl (81.0-99.0); MEAN CORPUSCULAR HEMOGLOBIN 30.5 pg (27.0-31.0); MEAN CORPUSCULAR HGB CONC 34.1 g/dL (33.0-37.0); MEAN PLATELET VOLUME 7.4 fl (7.2-11.7); MONO # 0.6 K/uL (0.0-0.8); MONO % 8.7 % (0.0-10.0); NEUT # 2.4 K/uL (1.8-7.0); NEUT % 37.6 % (50.0-75.0); NRBC % 0.1 % (0.0-0.0); RBC 4.44 Mil/uL (3.80-5.20); RED CELL DISTRIBUTION WIDTH 13.5 % (11.5-14.5); WHITE BLOOD COUNT 6.5 K/uL (4.8-10.8)
[2018-08-03 11:33] LABS: SQUAMOUS EPITHIAL 1 /hpf (0-5); URINE BACTERIA RARE (<OCC); URINE BILIRUBIN NEGATIVE (NEGATIVE); URINE BLOOD NEGATIVE (NEGATIVE); URINE CLARITY CLEAR (Clear); URINE COLOR YELLOW (YELLOW); URINE GLUCOSE (UA) NEG (NEGATIVE); URINE LEUKOCYTE ESTERASE NEG Leu/uL (Negative); URINE PROTEIN NEGATIVE (NEGATIVE); URINE UROBILINOGEN 0.2-1.0 mg/dL (0.2-1.0)
[2018-08-03 11:36] LABS: ALB/GLOB RATIO 1.1 (1.0-2.1); ALT/SGPT 62 U/L (9-52); AST/SGOT 50 U/L (14-36); BLOOD UREA NITROGEN 15 mg/dl (7-17); GFR NON-AFRICAN AMERICAN > 60; LIPASE 91 U/L (23-300)
[2018-08-03] MEDS ORDERED: Morphine 4 MG/ML VIAL ONE ×2 (11:40→20:23)
--- NOTE | 2018-08-03 11:56 | ED PDOC ---
HPI: Abdomen Time Seen by Provider: 08/03/18 10:42 Chief Complaint (Nursing): Abdominal Pain Chief Complaint (Provider): ongoing abdominal pain History Per: Patient History/Exam Limitations: no limitations Onset/Duration Of Symptoms: Days (3) Current Symptoms Are (Timing): Still Present Severity: Moderate Location Of Pain/Discomfort: Diffuse, Epigastric Quality Of Discomfort: Sharp, Burning Associated Symptoms: Nausea, Vomiting, Loss Of Appetite Exacerbating Factors: None Alleviating Factors: None Additional History Per: Prior Records Additional Complaint(s): 48yo female with prior history of abdominal pain, due for eval at [facility], presents c/o abdominal pain, mostly epigastric, burning and sharp in nature, with small hematemesis 2 days ago and dark stools. Denies fever, dizziness or s yncope. Prior records reviewed revealing recent ED visit for similar symptoms. Past Medical History Reviewed: Historical Data, Nursing Documentation, Vital Signs Vital Signs: Last Vital Signs Temp 97.2 F L 08/03/18 10:09 Pulse 52 L 08/03/18 10:09 Resp 18 08/03/18 10:09 BP 156/90 H 08/03/18 10:09 Pulse Ox 97 08/03/18 10:09 - Medical History PMH: Gastritis, Hypothyroidism, Chronic Pain (chronic abd pain) Denies: HIV, Chronic Kidney Disease - Surgical History Surgical History: Cholecystectomy, Endoscopy - Family History Family History: States: Unknown Family Hx - Social History Current smoker - smoking cessation education provided: No - Home Medications Home Medications: Ambulatory Orders Medication Instructions Recorded RX: Levothyroxine [Synthroid] 125 mcg PO QAM 08/08/17 Ciprofloxacin HCl [Cipro] 250 mg PO BID #6 tab 07/31/18 Omeprazole Magnesium [Prilosec Otc] 20 mg PO DAILY #30 tcp 07/31/18 Ondansetron ODT [Zofran ODT] 1 odt PO Q6 PRN #20 odt 07/31/18 RX: traMADol [Ultram] 50 mg PO TID PRN #15 tab 07/31/18 Ranitidine HCl [Zantac] 150 mg PO BID 08/03/18 - Allergies Allergies/Adverse Reactions: Allergies Allergy/AdvReac Type Severity Reaction Status Date / Time Iodinated Contrast- Oral and Allergy SHORTNESS Verified 08/03/18 10:10 IV Dye OF BREATH pineapple AdvReac SWELLING Verified 08/03/18 10:10 iv contrast AdvReac Intermediate SHORTNESS Uncoded 08/03/18 10:10 OF BREATH Review of Systems ROS Statement: Except As Marked, All Systems Reviewed And Found Negative Constitutional: Negative for: Fever Respiratory: Negative for: Cough Gastrointestinal: Positive for: Nausea, Vomiting, Abdominal Pain, Hematemesis Genitourinary Female: Negative for: Dysuria Musculoskeletal: Negative for: Neck Pain Skin: Negative for: Rash, Lesions Neurological: Positive for: Dizziness. Negative for: Weakness, Headache Physical Exam - Physical Exam Appears: Positive for: Non-toxic, Uncomfortable Head Exam: Positive for: ATRAUMATIC, NORMAL INSPECTION, NORMOCEPHALIC Skin: Positive for: Normal Color, Warm, DRY Eye Exam: Positive for: EOMI, Normal appearance, PERRL ENT: Positive for: Normal ENT Inspection Neck: Positive for: Normal, Painless ROM Cardiovascular/Chest: Positive for: Regular Rate, Rhythm Respiratory: Positive for: CNT, Normal Breath Sounds Gastrointestinal/Abdominal: Positive for: Soft, Tenderness (epigastric) Back: Positive for: Normal Inspection Extremity: Positive for: Normal ROM Neurologic/Psych: Positive for: Alert, Oriented. Negative for: Motor/Sensory Deficits - Laboratory Results Result Diagrams: 08/03/18 11:05 08/03/18 11:05 Lab Results: Total Bilirubin 0.4 mg/dl (0.2-1.3) 08/03/18 11:05 AST 50 U/L (14-36) H 08/03/18 11:05 ALT 62 U/L (9-52) H 08/03/18 11:05 Alkaline Phosphatase 103 U/L (38-126) 08/03/18 11:05 Total Protein 7.4 G/DL (6.3-8.2) 08/03/18 11:05 Albumin 4.0 g/dL (3.5-5.0) 08/03/18 11:05 Globulin 3.4 gm/dL (2.2-3.9) 08/03/18 11:05 Albumin/Globulin Ratio 1.1 (1.0-2.1) 08/03/18 11:05 Lipase 91 U/L (23-300) 08/03/18 11:05 Urine Color Yellow (YELLOW) 08/03/18 11:16 Urine Clarity Clear (Clear) 08/03/18 11:16 Urine pH 5.0 (5.0-8.0) 08/03/18 11:16 Ur Specific [place] 1.014 (1.003-1.030) 08/03/18 11:16 Urine Protein Negative mg/dL (NEGATIVE) 08/03/18 11:16 Urine Glucose (UA) Neg mg/dL (NEGATIVE) 08/03/18 11:16 Urine Ketones Negative mg/dL (NEGATIVE) 08/03/18 11:16 Urine Blood Negative (NEGATIVE) 08/03/18 11:16 Urine Nitrate Negative (NEGATIVE) 08/03/18 11:16 Urine Bilirubin Negative (NEGATIVE) 08/03/18 11:16 Urine Urobilinogen 0.2-1.0 mg/dL (0.2-1.0) 08/03/18 11:16 Ur Leukocyte Esterase Neg [place]/uL (Negative) 08/03/18 11:16 Urine RBC (Auto) 2 /hpf (0-3) 08/03/18 11:16 Urine Microscopic WBC 2 /hpf (0-5) 08/03/18 11:16 Ur Squamous Epith Cells 1 /hpf (0-5) 08/03/18 11:16 Urine Bacteria Rare (<OCC) 08/03/18 11:16 Urine POC: Negative Urine dip results: Negative for: Ketones - ECG O2 Sat by Pulse Oximetry: 97 Pulse Ox Interpretation: Normal Medical Decision Making Medical Decision Making: prior charts reviewed, multiple CT scans performed, GI eval recommended eval at [facility] for which she has appt September [address] abd pelv obtained given worsening pain R sided r/o appendicitis CT report reviewed, no evidence appy Pt in ED approx 7hrs, pain persisted despite IVF, pepcid, morphine. States unable to tolerate PO. Admit Obs hospitalist for clinic service. Disposition - Clinical Impression Clinical Impression: Intractable abdominal pain - Patient ED Disposition Is Patient to be Admitted: Yes Counseled Patient/Family Regarding: Studies Performed, Diagnosis, Need For Followup - Disposition Disposition Time: 17:40 Condition: STABLE
[2018-08-03] MEDS ORDERED: Sodium Chloride 0.9% 50 ML IV ONE (15:42)
[2018-08-03] MEDS ORDERED: Iohexol 300 100 ML IJ ONE (15:42)
--- NOTE | 2018-08-03 17:12 | CT ---
Date of service: 08/03/2018 PROCEDURE: CT Abdomen and Pelvis without intravenous contrast HISTORY: R sided abd pain acute on chronic COMPARISON: Comparison is made to the previous study dated 05/20/2018 TECHNIQUE: Axial and reformatted coronal and sagittal CT images of the abdomen and pelvis were obtained without IV or oral contrast administration.. Contrast dose: 0 Radiation dose: Total exam DLP = 852.44 mGy-cm. This CT exam was performed using one or more of the following dose reduction techniques: Automated exposure control, adjustment of the mA and/or kV according to patient size, and/or use of iterative reconstruction technique. FINDINGS: LOWER THORAX: Unremarkable. LIVER: The liver is mildly enlarged demonstrate moderate diffuse low-attenuation suggestive of hepatic steatosis. GALLBLADDER AND BILE DUCTS: That is post cholecystectomy. PANCREAS: Unremarkable. No gross lesion or ductal dilatation. SPLEEN: Unremarkable. ADRENALS: Unremarkable. No mass. KIDNEYS AND URETERS: Unremarkable. No hydronephrosis. No solid mass. VASCULATURE: Unremarkable. No aortic aneurysm. No aortic atherosclerotic calcification or mural plaque present. BOWEL: Unremarkable. No obstruction. No gross mural thickening. APPENDIX: Unremarkable. Normal appendix. PERITONEUM: Unremarkable. No free fluid. No free air. LYMPH NODES: Unremarkable. No enlarged lymph nodes. BLADDER: Unremarkable. REPRODUCTIVE: Unremarkable. BONES: No acute fracture. OTHER FINDINGS: None. IMPRESSION: No evidence of acute appendicitis. No evidence of nephrolithiasis or hydronephrosis.
[2018-08-03] MEDS ORDERED: Morphine 4 MG/ML VIAL IV STA (18:59)
[2018-08-03] MEDS ORDERED: Alum-Mag Hydrox-Simethicone Susp (30 mL) PO ONE (19:08)
--- NOTE | 2018-08-03 19:17 | CP.PCM.HP ---
<Raul Luke - Last Filed: 08/03/18 20:26> History of Present Illness - History of Present Illness History of Present Illness: 48 y/o F with a PMHx of hypothyroidism and cholecystectomy presented to ED complaining of severe R sided abdominal and epigastric pain that aggravated since 1 week ago. Pain is described as pulsatile, constant, 10/10 intensity, predominantly on RUQ area, radiates to back and R upper back. Pt explains that she has been having same abdominal pain for several months with a lesser degree of intensity. Pt has also been experiencing nausea and vomiting for 3 days, today they exacerbated and pt reports vomiting >5 times, non-bloody and non- bilious. Diarrhea returned yesterday, non-bloody, watery and only a few episodes. -Pt was seen at ED 3 days ago due to abdominal pain, blood-tinged vomiting and ~8 episodes on watery non-bloody diarrhea. Bloodwork showed normal Hgb. Pt was discharged with several medications; however, pain was not controled. -Pt has scheduled appt with GI at [facility] for 09/22/18. Abdominal CT on 05/2018 was unremarkable. EGD showed jimmy esophagus and Gastritis on 05/2018. >PCP: Dr Tita Ariza at [facility] >Meds: Ciprofloxacin 250 mg PO BID, Omeprazole 20 mg PO daily, Ranitidine 150mg PO HS, Ondansetron 4mg Q6 PRN, Tramadol 50mg TID PRN, Levothyroxine PO 125mcg daily. >Allergies: Iodine contrast, pineaple >PMHx: hypothyroidism >PSHx: Cholecystectomy, BTL >FHx: COlon cancer in grand father at age 50. >SHx: denies alcohol, tonacco or rec drugs. At ED: --CBC showed eosinophilia and CMP showed mild transaminitis (chronic issues upon reviewing chart) --Lipase and U/A were unremarkable --Abdominal CT: No evidence of acute appendicitis, nepholithiasis or hydronephrosis. --PO Bentyl, PO Pepcid and IV Morphine were administered with NO pain control. Present on Admission - Present on Admission Any Indicators Present on Admission: No Review of Systems - Constitutional Constitutional: Chills. absent: Fever, Weight Loss - EENT Nose/Mouth/Throat: absent: Nasal Congestion, Odynophagia, Sore Throat, Neck Pain, Neck Mass - Cardiovascular Cardiovascular: absent: Chest Pain, Dyspnea, Edema - Respiratory Respiratory: absent: Cough, Dyspnea, Hemoptysis - Gastrointestinal Gastrointestinal: Abdominal Pain, Diarrhea, Nausea, Vomiting - Genitourinary Genitourinary: absent: Dysuria, Flank Pain, Hematuria Past Patient History - Infectious Disease Hx of Infectious Diseases: None - Past Medical History & Family History Past Medical History?: Yes - Past Social History Smoking Status: Never Smoked - CARDIAC Hx Cardiac Disorders: No - PULMONARY Hx Respiratory Disorders: No - NEUROLOGICAL Hx Neurological Disorder: No - HEENT Hx HEENT Problems: No - RENAL Hx Chronic Kidney Disease: No - ENDOCRINE/METABOLIC Hx Hypothyroidism: Yes - HEMATOLOGICAL/ONCOLOGICAL Hx Human Immunodeficiency Virus (HIV): No - INTEGUMENTARY Hx Dermatological Problems: No - MUSCULOSKELETAL/RHEUMATOLOGICAL Hx Musculoskeletal Disorders: No - GASTROINTESTINAL Hx Gastritis: Yes - GENITOURINARY/GYNECOLOGICAL Hx Genitourinary Disorders: No - PSYCHIATRIC Hx Psychophysiologic Disorder: No Hx Emotional Abuse: No Hx Physical Abuse: No Hx Substance Use: No - SURGICAL HISTORY Hx Cholecystectomy: Yes - ANESTHESIA Hx Anesthesia: Yes Hx Anesthesia Reactions: No Hx Malignant Hyperthermia: No Meds Allergies/Adverse Reactions: Allergies Allergy/AdvReac Type Severity Reaction Status Date / Time Iodinated Contrast- Oral and Allergy SHORTNESS Verified 08/03/18 10:10 IV Dye OF BREATH pineapple AdvReac SWELLING Verified 08/03/18 10:10 iv contrast AdvReac Intermediate SHORTNESS Uncoded 08/03/18 10:10 OF BREATH Physical Exam - Constitutional Appears: No Acute Distress - Head Exam Head Exam: ATRAUMATIC, NORMAL INSPECTION - Eye Exam Eye Exam: EOMI, Normal appearance - ENT Exam ENT Exam: Mucous Membranes Dry - Neck Exam Neck exam: Positive for: Full Rom - Respiratory Exam Respiratory Exam: NORMAL BREATHING PATTERN. absent: Rhonchi, Wheezes, Respiratory Distress - Cardiovascular Exam Cardiovascular Exam: REGULAR RHYTHM, +S1, +S2 - GI/Abdominal Exam GI & Abdominal Exam: Normal Bowel Sounds, Soft, Tenderness (Severe on right side of abdomen and epigastric. Rovsing sign positive. ). absent: Guarding, Rebound, Rigid - Extremities Exam Extremities exam: Positive for: full ROM, normal inspection. Negative for: pedal edema - Back Exam Back exam: absent: CVA tenderness (L), CVA tenderness (R) - Neurological Exam Neurological exam: Alert, Oriented x3 Results - Vital Signs Recent Vital Signs: Last Vital Signs Temp 97.2 F L 08/03/18 10:09 Pulse 52 L 08/03/18 10:09 Resp 18 08/03/18 10:09 BP 156/90 H 08/03/18 10:09 Pulse Ox 97 08/03/18 19:01 - Labs Result Diagrams: 08/03/18 11:05 08/03/18 11:05 Labs: Laboratory Results - last 24 hr 08/03/18 08/03/18 08/03/18 11:05 11:05 11:16 WBC 6.5 RBC 4.44 Hgb 13.5 Hct 39.7 MCV 89.5 MCH 30.5 MCHC 34.1 RDW 13.5 Plt Count 228 MPV 7.4 Neut % (Auto) 37.6 L Lymph % (Auto) 46.2 H [place] % (Auto) 8.7 Eos % (Auto) 6.7 H Baso % (Auto) 0.8 Neut # (Auto) 2.4 Lymph # (Auto) 3.0 [place] # (Auto) 0.6 Eos # (Auto) 0.4 Baso # (Auto) 0.0 Sodium 139 Potassium 4.0 Chloride 103 Carbon Dioxide 27 Anion Gap 13 BUN 15 Creatinine 0.6 L Est GFR ( Amer) > 60 Est GFR (Non-Af Amer) > 60 Random Glucose 134 H Calcium 9.0 Total Bilirubin 0.4 AST 50 H ALT 62 H Alkaline Phosphatase 103 Total Protein 7.4 Albumin 4.0 Globulin 3.4 Albumin/Globulin Ratio 1.1 Lipase 91 Urine Color Yellow Urine Clarity Clear Urine pH 5.0 Ur Specific [place] 1.014 Urine Protein Negative Urine Glucose (UA) Neg Urine Ketones Negative Urine Blood Negative Urine Nitrate Negative Urine Bilirubin Negative Urine Urobilinogen 0.2-1.0 Ur Leukocyte Esterase Neg Urine RBC (Auto) 2 Urine Microscopic WBC 2 Ur Squamous Epith Cells 1 Urine Bacteria Rare Assessment & Plan - Assessment and Plan (Free Text) Assessment: 48 y/o F with a PMHx of hypothyroidism and Cholecystectomy was admitted for evaluation and management of intractable abdominal pain --Abdominal CT on 05/2018 was unremarkable. EGD showed Jimmy's esophagus and Gastritis on 05/2018, stomach biopsy neg for H. Pylori or fungi. --Lipase and U/A were unremarkable --Abdominal CT: No evidence of acute appendicitis, nepholithiasis or hydronephrosis. PLAN: >Intractable Abdominal Pain --Afebrile, stable, no leukocytosis --Unremarkable serum lipase and Abdominal CT. --IV Zofran PRN for vomiting --IV Toradol for pain management, 15mg for moderate, 30mg for severe. --IV Pantoprazole --Due to eosinophilia, possible parasitic infection. --F/O FOBT and stool Ova and Parasite >Transaminitis --Chronic --Hepatitis B and C panel on 2015 were negative. GGT on 06/2018 was WNL. --CT Abdomen suggesting hepatic steatosis. --F/U CMP >Eosinophilia --Chronic --Ova and Parasite for possible parasitic infection. >Hypothyroidism --Home med resumed --Controlled --Last TSH 1.41-WNL on 06/19/18 >DVT Prophylaxis --Lovenox 40mg SC daily. Case discussed with Dr Buzz Ramsey PGY-2 - Date & Time Date: 08/03/18 Time: 19:00 <Jaciel Gerber D - Last Filed: 08/04/18 11:19> Results - Vital Signs Recent Vital Signs: Last Vital Signs Temp 98.0 F 08/04/18 08:11 Pulse 74 08/04/18 08:11 Resp 20 08/04/18 08:11 BP 117/77 08/04/18 08:11 Pulse Ox 97 08/04/18 08:11 - Labs Result Diagrams: 08/04/18 05:30 08/04/18 05:30 Labs: Laboratory Results - last 24 hr 08/03/18 08/03/18 08/03/18 11:05 11:05 11:16 WBC 6.5 RBC 4.44 Hgb 13.5 Hct 39.7 MCV 89.5 MCH 30.5 MCHC 34.1 RDW 13.5 Plt Count 228 MPV 7.4 Neut % (Auto) 37.6 L Lymph % (Auto) 46.2 H Preston % (Auto) 8.7 Eos % (Auto) 6.7 H Baso % (Auto) 0.8 Neut # (Auto) 2.4 Lymph # (Auto) 3.0 [place] # (Auto) 0.6 Eos # (Auto) 0.4 Baso # (Auto) 0.0 Sodium 139 Potassium 4.0 Chloride 103 Carbon Dioxide 27 Anion Gap 13 BUN 15 Creatinine 0.6 L Est GFR ( Amer) > 60 Est GFR (Non-Af Amer) > 60 Random Glucose 134 H Calcium 9.0 Total Bilirubin 0.4 AST 50 H ALT 62 H Alkaline Phosphatase 103 Total Protein 7.4 Albumin 4.0 Globulin 3.4 Albumin/Globulin Ratio 1.1 Lipase 91 Urine Color Yellow Urine Clarity Clear Urine pH 5.0 Ur Specific [place] 1.014 Urine Protein Negative Urine Glucose (UA) Neg Urine Ketones Negative Urine Blood Negative Urine Nitrate Negative Urine Bilirubin Negative Urine Urobilinogen 0.2-1.0 Ur Leukocyte Esterase Neg Urine RBC (Auto) 2 Urine Microscopic WBC 2 Ur Squamous Epith Cells 1 Urine Bacteria Rare 08/04/18 08/04/18 05:30 05:30 WBC 5.3 RBC 4.21 Hgb 12.8 Hct 38.0 MCV 90.2 MCH 30.5 MCHC 33.8 RDW 13.6 Plt Count 211 MPV 7.6 Neut % (Auto) 31.3 L Lymph % (Auto) 53.4 H Preston % (Auto) 7.9 Eos % (Auto) 6.8 H Baso % (Auto) 0.6 Neut # (Auto) 1.7 L Lymph # (Auto) 2.8 [place] # (Auto) 0.4 Eos # (Auto) 0.4 Baso # (Auto) 0.0 Sodium 140 Potassium 3.6 Chloride 101 Carbon Dioxide 27 Anion Gap 16 BUN 13 Creatinine 0.7 Est GFR ( Amer) > 60 Est GFR (Non-Af Amer) > 60 Random Glucose 101 Calcium 8.7 Total Bilirubin 0.8 AST 101 H D ALT 102 H D Alkaline Phosphatase 142 H D Total Protein 6.7 Albumin 3.5 Globulin 3.2 Albumin/Globulin Ratio 1.1 Lipase Urine Color Urine Clarity Urine pH Ur Specific [place] Urine Protein Urine Glucose (UA) Urine Ketones Urine Blood Urine Nitrate Urine Bilirubin Urine Urobilinogen Ur Leukocyte Esterase Urine RBC (Auto) Urine Microscopic WBC Ur Squamous Epith Cells Urine Bacteria Attending/Attestation - Attestation I have personally seen and examined this patient.: Yes I have fully participated in the care of the patient.: Yes I have reviewed all pertinent clinical information: Yes Notes (Text): 08/04/18 11:19 Patient seen and examined with resident. Case discussed and agreed with assess ment and plan of management.
[2018-08-04 00:45] VITALS: RESP 20
[2018-08-04] MEDS: Sodium Chloride 0.9% 1,000 ML IV SCH ×3 (03:00→13:35)
[2018-08-04] MEDS ORDERED: Levothyroxine 125 MCG TAB PO SCH (06:30)
[2018-08-04 07:39] LABS: BASO % 0.6 % (0.0-2.0); EOS # 0.4 K/uL (0.0-0.7); EOS % 6.8 % (0.0-4.0); HEMOGLOBIN 12.8 g/dL (12.0-16.0); LYMPH # 2.8 K/uL (1.0-4.3); LYMPH % 53.4 % (20.0-40.0); MEAN CELL VOLUME 90.2 fl (81.0-99.0); MEAN CORPUSCULAR HEMOGLOBIN 30.5 pg (27.0-31.0); MEAN CORPUSCULAR HGB CONC 33.8 g/dL (33.0-37.0); MEAN PLATELET VOLUME 7.6 fl (7.2-11.7); MONO # 0.4 K/uL (0.0-0.8); MONO % 7.9 % (0.0-10.0); NEUT # 1.7 K/uL (1.8-7.0); NEUT % 31.3 % (50.0-75.0); NRBC % 0.1 % (0.0-0.0); RBC 4.21 Mil/uL (3.80-5.20); RED CELL DISTRIBUTION WIDTH 13.6 % (11.5-14.5); WHITE BLOOD COUNT 5.3 K/uL (4.8-10.8)
[2018-08-04 07:49] LABS: ALB/GLOB RATIO 1.1 (1.0-2.1); ALBUMIN 3.5 g/dL (3.5-5.0); ALT/SGPT 102 U/L (9-52); AST/SGOT 101 U/L (14-36); BLOOD UREA NITROGEN 13 mg/dl (7-17); CALCIUM 8.7 mg/dL (8.4-10.2); GFR NON-AFRICAN AMERICAN > 60
[2018-08-04 08:12] VITALS: BP 117/77; PULSE 74; TEMP 98; O2SAT 97
[2018-08-04] MEDS ORDERED: Enoxaparin 40 mg Syringe SC SCH (09:00)
--- NOTE | 2018-08-04 12:55 | CP.PCM.DIS ---
Provider - Provider Date of Admission: 08/03/18 18:11 Attending physician: Jaciel Gerber MD Time Spent in preparation of Discharge (in minutes): 35 Diagnosis - Discharge Diagnosis (1) Abdominal pain Status: Acute Comment: Chronic with acute worsening. Likely secondary to constipation given findings on imaging. start Miralax, increase fiber intake in diet, continue to drink plenty of water daily. (2) Constipation Status: Acute Comment: fleet enema administered prior to discharge Hospital Course - Lab Results Lab Results: Most Recent Lab Values WBC 5.3 K/uL (4.8-10.8) 08/04/18 05:30 RBC 4.21 Mil/uL (3.80-5.20) 08/04/18 05:30 Hgb 12.8 g/dL (12.0-16.0) 08/04/18 05:30 Hct 38.0 % (34.0-47.0) 08/04/18 05:30 MCV 90.2 fl (81.0-99.0) 08/04/18 05:30 MCH 30.5 pg (27.0-31.0) 08/04/18 05:30 MCHC 33.8 g/dL (33.0-37.0) 08/04/18 05:30 RDW 13.6 % (11.5-14.5) 08/04/18 05:30 Plt Count 211 K/uL (130-400) 08/04/18 05:30 MPV 7.6 fl (7.2-11.7) 08/04/18 05:30 Neut % (Auto) 31.3 % (50.0-75.0) L 08/04/18 05:30 Lymph % (Auto) 53.4 % (20.0-40.0) H 08/04/18 05:30 [place] % (Auto) 7.9 % (0.0-10.0) 08/04/18 05:30 Eos % (Auto) 6.8 % (0.0-4.0) H 08/04/18 05:30 Baso % (Auto) 0.6 % (0.0-2.0) 08/04/18 05:30 Neut # (Auto) 1.7 K/uL (1.8-7.0) L 08/04/18 05:30 Lymph # (Auto) 2.8 K/uL (1.0-4.3) 08/04/18 05:30 [place] # (Auto) 0.4 K/uL (0.0-0.8) 08/04/18 05:30 Eos # (Auto) 0.4 K/uL (0.0-0.7) 08/04/18 05:30 Baso # (Auto) 0.0 K/uL (0.0-0.2) 08/04/18 05:30 Sodium 140 mmol/l (132-148) 08/04/18 05:30 Potassium 3.6 MMOL/L (3.6-5.0) 08/04/18 05:30 Chloride 101 mmol/L (98-107) 08/04/18 05:30 Carbon Dioxide 27 mmol/L (22-30) 08/04/18 05:30 Anion Gap 16 (10-20) 08/04/18 05:30 BUN 13 mg/dl (7-17) 08/04/18 05:30 Creatinine 0.7 mg/dl (0.7-1.2) 08/04/18 05:30 Est GFR ( Amer) > 60 08/04/18 05:30 Est GFR (Non-Af Amer) > 60 08/04/18 05:30 Random Glucose 101 mg/dL (65-105) 08/04/18 05:30 Calcium 8.7 mg/dL (8.4-10.2) 08/04/18 05:30 Total Bilirubin 0.8 mg/dl (0.2-1.3) 08/04/18 05:30 AST 101 U/L (14-36) H D 08/04/18 05:30 ALT 102 U/L (9-52) H D 08/04/18 05:30 Alkaline Phosphatase 142 U/L (38-126) H D 08/04/18 05:30 Total Protein 6.7 G/DL (6.3-8.2) 08/04/18 05:30 Albumin 3.5 g/dL (3.5-5.0) 08/04/18 05:30 Globulin 3.2 gm/dL (2.2-3.9) 08/04/18 05:30 Albumin/Globulin Ratio 1.1 (1.0-2.1) 08/04/18 05:30 Lipase 91 U/L (23-300) 08/03/18 11:05 Urine Color Yellow (YELLOW) 08/03/18 11:16 Urine Clarity Clear (Clear) 08/03/18 11:16 Urine pH 5.0 (5.0-8.0) 08/03/18 11:16 Ur Specific [place] 1.014 (1.003-1.030) 08/03/18 11:16 Urine Protein Negative mg/dL (NEGATIVE) 08/03/18 11:16 Urine Glucose (UA) Neg mg/dL (NEGATIVE) 08/03/18 11:16 Urine Ketones Negative mg/dL (NEGATIVE) 08/03/18 11:16 Urine Blood Negative (NEGATIVE) 08/03/18 11:16 Urine Nitrate Negative (NEGATIVE) 08/03/18 11:16 Urine Bilirubin Negative (NEGATIVE) 08/03/18 11:16 Urine Urobilinogen 0.2-1.0 mg/dL (0.2-1.0) 08/03/18 11:16 Ur Leukocyte Esterase Neg [place]ha/uL (Negative) 08/03/18 11:16 Urine RBC (Auto) 2 /hpf (0-3) 08/03/18 11:16 Urine Microscopic WBC 2 /hpf (0-5) 08/03/18 11:16 Ur Squamous Epith Cells 1 /hpf (0-5) 08/03/18 11:16 Urine Bacteria Rare (<OCC) 08/03/18 11:16 - Hospital Course Hospital Course: 48 y/o F with a PMHx of hypothyroidism , gastritis admitted for intractable abdominal pain and vomiting. Her pain is chronic, present for the past 4 years, with acute worsening this past week. She has had multiple upper and lower endoscopies. She admits to having intermittent diarrhea/constipation. During this admission, she had vomiting but no bowel movements. Her labs were unremarkable except for eosinophilia and transaminitis. CT A/P IMPRESSION: No evidence of acute appendicitis, nepholithiasis or hydronephrosis. CT reviewed with attending, fair amount of stool noted in cecum/ascending colon, fleet enema administered. Differential diagnosis constipation, IBD, IBS, eosinophilic colitis. No evidence of bowel obstruction. She has an appt for GI consult at [facility] on September 17. Discussed management of constipation: increase fiber intake in diet, continue to drink plenty of water, start miralax. PAtient has zofran at home. She takes ranitidine daily which she can continue. Follow up appt to be made at [facility] within next 1 week. Patient seen and examined with attending. Discharge Exam - Head Exam Head Exam: ATRAUMATIC, NORMAL INSPECTION - ENT Exam ENT Exam: Mucous Membranes Moist - Respiratory Exam Respiratory Exam: Clear to PA & Lateral, NORMAL BREATHING PATTERN. absent: Decreased Breath Sounds, Rales, Rhonchi, Wheezes, Respiratory Distress - Cardiovascular Exam Cardiovascular Exam: REGULAR RHYTHM, +S1, +S2 - GI/Abdominal Exam GI & Abdominal Exam: Normal Bowel Sounds, Soft, Tenderness (right lower quadrant, mild mid epigastric tenderness ). absent: Distended, Firm, Guarding, Rebound - Neurological Exam Neurological exam: Alert - Psychiatric Exam Psychiatric exam: Normal Affect, Normal Mood - Skin Skin Exam: Dry, Intact, Normal Color, Warm Discharge Plan - Discharge Medications Prescriptions: Polyethylene Glycol 3350 [Miralax] 17 gm PO HS 14 Days - Follow Up Plan Condition: STABLE Disposition: HOME/ ROUTINE Patient education suggested?: Yes Instructions: Constipation, Adult (DC), Acute Abdominal Pain (DC) Additional Instructions: Follow up at the [facility] in 1 week. Eat [place] diet for next few days. Increase Fiber intake in diet. Continue to drink plenty of water. Miralax daily until you see your primary physician. Discontinue if you have diarrhea. Referrals: [facility] [place] [Outside]
== END 2018-08-04 14:13 | disposition home or self-care (01) ==
LOC: H.ER 10:04 → H.ERHOLD 18:11 → H.MEDSURG1 22:35
DX: K59.00 Constipation, unspecified (principal); E03.9 Hypothyroidism, unspecified; G89.29 Other chronic pain; Z91.041 Radiographic dye allergy status; K29.70 Gastritis, unspecified, without bleeding; R74.0 Nonspecific elevation of levels of transaminase and lactic acid dehydrogenase [LDH]
CPT/HCPCS: 36415; 74176; 80053; 80320; 81003; 81025; 82009; 83690; 84600; 85025; 96361; 96372; 96374; 96375; 96376; 99285; C9113; G0378; J1650; J1885; J2270; J2405; J2765; J7030

== ENCOUNTER 2018-08-20 19:18 | Emergency (ER) | payer SELFPAY ==
[2018-08-20 19:18] VITALS: BMI 30.7
[2018-08-20 19:58] VITALS: RESP 18; O2SAT 99
--- NOTE | 2018-08-20 21:29 | ED PDOC ---
HPI: Head Injury Time Seen by Provider: 08/20/18 20:51 Chief Complaint (Nursing): Trauma Chief Complaint (Provider): head injury History Per: Patient History/Exam Limitations: no limitations Injury Occurred (Timing): Days Ago: (x1) Onset/Duration Of Symptoms: Days (x1) Loss Of Consciousness: Unsure Additional Complaint(s): 48 year old female, with a past medical history of hypothyroidism and gastritis, who presents to the emergency department complaining of a headache and neck pain after a piece of ceiling fell on her head yesterday. Patient reports she was cleaning her house when part of the ceiling fell on her head. She reports positive LOC, when she woke up she was in a sitting position but does not know how she got in that position. Patient states this morning she woke up with nausea and dizziness. She took Advil at 17:30 tonight. She denies any visual disturbances, vomiting, gait instability or one sided weakness. No further m edical complaints. PMD: Bert Ariza Past Medical History Reviewed: Historical Data, Nursing Documentation, Vital Signs Vital Signs: Last Vital Signs Temp 98.6 F 08/20/18 19:55 Pulse 78 08/20/18 19:55 Resp 18 08/20/18 19:55 BP 147/68 08/20/18 19:55 Pulse Ox 99 08/20/18 19:55 - Medical History PMH: Gastritis, Hypothyroidism, Chronic Pain (chronic abd pain) Denies: HIV, Chronic Kidney Disease - Surgical History Surgical History: Cholecystectomy, Endoscopy - Family History Family History: States: Unknown Family Hx - Social History Current smoker - smoking cessation education provided: No Alcohol: None Drugs: Denies - Home Medications Home Medications: Ambulatory Orders Medication Instructions Recorded Levothyroxine [Synthroid] 125 mcg PO QAM 08/08/17 Omeprazole Magnesium [Prilosec Otc] 20 mg PO DAILY #30 tcp 07/31/18 Ranitidine HCl [Zantac] 150 mg PO BID 08/03/18 Polyethylene Glycol 3350 [Miralax] 17 gm PO HS 14 Days 08/04/18 Ibuprofen [Motrin Tab] 800 mg PO Q6 PRN 7 Days tab 08/20/18 Ondansetron ODT [Zofran ODT] 4 mg PO Q8 PRN 2 Days odt 08/20/18 - Allergies Allergies/Adverse Reactions: Allergies Allergy/AdvReac Type Severity Reaction Status Date / Time Iodinated Contrast- Oral and Allergy SHORTNESS Verified 08/03/18 10:10 IV Dye OF BREATH pineapple AdvReac SWELLING Verified 08/03/18 10:10 iv contrast AdvReac Intermediate SHORTNESS Uncoded 08/03/18 10:10 OF BREATH Review of Systems ROS Statement: Except As Marked, All Systems Reviewed And Found Negative Eyes: Negative for: Vision Change Gastrointestinal: Positive for: Nausea. Negative for: Vomiting Musculoskeletal: Positive for: Neck Pain Neurological: Positive for: Headache, Dizziness. Negative for: Weakness (one sided), Other (unsteady gait) Physical Exam - Reviewed Nursing Documentation Reviewed: Yes Vital Signs Reviewed: Yes - Physical Exam Appears: Positive for: Uncomfortable Head Exam: Positive for: ATRAUMATIC, NORMAL INSPECTION, NORMOCEPHALIC Skin: Positive for: Normal Color, Warm, Dry Eye Exam: Positive for: Normal appearance, EOMI, PERRL ENT: Positive for: Normal ENT Inspection Neck: Positive for: Decreased ROM (with lateral rotation, stating it brings her dizziness. Normal flexion and extension of neck. No ecchymosis, swelling or deformity.). Negative for: Normal (Minimal tenderness on palpation) Cardiovascular/Chest: Positive for: Regular Rate, Rhythm. Negative for: Murmur Respiratory: Positive for: Normal Breath Sounds. Negative for: Respiratory Distress Neurologic/Psych: Positive for: Alert, Oriented, Gait (steady), Other (Decreased sensation to light touch on right cheek). Negative for: Motor/Sensory Deficits (Equal chief controller center strength to bilateral upper extremities) - ECG O2 Sat by Pulse Oximetry: 99 Medical Decision Making Medical Decision Making: Time: 20:51 Initial Impression: Head injury Initial Plan: --Head w/o contrast [CT] --Tylenol 325 mg tab 975mg PO --Zofran ODT 4 mg PO --Reevaluation 0 EXAM: CT Head without Intravenous Contrast. CLINICAL HISTORY: Part of ceiling fell on head injury, nausea, vomitng TECHNIQUE: Axial computed tomography images of the head/brain without intravenous contrast. 764.60 mGy-cm COMPARISON: Prior examination has not arrived for comparison by the time of interpretation. FINDINGS: BRAIN No acute intraparenchymal hemorrhage. No mass lesion. No CT evidence for acute territorial infarct. No midline shift or extra-axial collections. VENTRICLES: No hydrocephalus. ORBITS: The orbits are unremarkable. SINUSES AND MASTOIDS: The paranasal sinuses and mastoid air cells are clear. BONES: No fracture. SOFT TISSUES: Unremarkable. IMPRESSION: 1. No acute intracranial abnormality. ----- Scribe Attestation: Documented by Bobo Mtz, acting as a scribe for Nicole Martin PA-C. Provider Scribe Attestation: All medical record entries made by the Scribe were at my direction and personally dictated by me. I have reviewed the chart and agree that the record accurately reflects my personal performance of the history, physical exam, medical decision making, and the department course for this patient. I have also personally directed, reviewed, and agree with the discharge instructions and disposition. 23:21: Re-evaluated: nausea has improved but SPRING persists, recommended to take Ibuprofen and Tylenol for pain. Patient stable for d/c home. Disposition - Clinical Impression Clinical Impression: Concussion - Patient ED Disposition Is Patient to be Admitted: No Counseled Patient/Family Regarding: Studies Performed, Diagnosis, Need For Followup, Rx Given - Disposition Referrals: [facility] [Outside] Disposition: Routine/Home Disposition Time: 23:23 Condition: STABLE Additional Instructions: Return to ER if you have worsening SPRING or persistent N/V or inability to walk due to imbalance. Take Tylenol or Ibuprofen for SPRING. Rest for the next couple of days and avoid excessive watching TV/screen time. Take Zofran for nausea/vomiting. Prescriptions: Ibuprofen [Motrin Tab] 800 mg PO Q6 PRN 7 Days tab PRN Reason: Pain, Moderate (4-7) Ondansetron ODT [Zofran ODT] 4 mg PO Q8 PRN 2 Days odt PRN Reason: Nausea/Vomiting Instructions: Concussion, Adult (DC), Head Injury Observation (DC) Forms: [facility] ED School/Work Excuse, [email or web address] (Mongolian) Print Language: UPPER SORBIAN
[2018-08-20 23:22] VITALS: BP 131/78; PULSE 72; TEMP 98.1
--- NOTE | 2018-08-21 10:08 | CT ---
Date of service: 08/20/2018 PROCEDURE: CT HEAD WITHOUT CONTRAST. HISTORY: hit with part of ceiling on head, +nausea/dizzines COMPARISON: Head CT without contrast 11/19/2017. TECHNIQUE: Axial computed tomography images were obtained through the head/brain without intravenous contrast. Radiation dose: Total exam DLP = 764.6 mGy-cm. This CT exam was performed using one or more of the following dose reduction techniques: Automated exposure control, adjustment of the mA and/or kV according to patient size, and/or use of iterative reconstruction technique. FINDINGS: HEMORRHAGE: No intracranial hemorrhage. BRAIN: Normal mujica-white matter differentiation and density are appreciated throughout the cerebrum and cerebellum with the brainstem appearing unremarkable as well. There is no mass effect. There is no suspicious extra-axial fluid collection and the midline brain anatomy appears diffusely unremarkable. VENTRICLES: Unremarkable. No hydrocephalus. CALVARIUM: No destructive bony lesion or displaced fracture identified including through the skullbase. PARANASAL SINUSES: Unremarkable as visualized. No significant inflammatory changes. MASTOID AIR CELLS: Unremarkable as visualized. No inflammatory changes. OTHER FINDINGS: None. IMPRESSION: Unremarkable unenhanced head CT. Stable compared prior CT dated 11/19/2017. Concordant preliminary report from Monique, 08/20/2018, 10:20 p.m..
== END 2018-08-20 23:23 | disposition home or self-care (01) ==
LOC: H.ER 19:18
DX: S06.0X0A Concussion without loss of consciousness, initial encounter (principal); W22.8XXA Striking against or struck by other objects, initial encounter; Y92.89 Other specified places as the place of occurrence of the external cause; E03.9 Hypothyroidism, unspecified; G89.29 Other chronic pain; Z88.8 Allergy status to other drugs, medicaments and biological substances; Z79.899 Other long term (current) drug therapy

== ENCOUNTER 2018-10-29 20:02 | Emergency (ER) | payer SELFPAY ==
[2018-10-29 20:02] VITALS: BMI 30.7
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
[2018-10-29 21:40] LABS: BASO % 0.7 % (0.0-2.0); EOS # 0.3 K/uL (0.0-0.7); EOS % 3.8 % (0.0-4.0); HEMOGLOBIN 14.5 g/dL (12.0-16.0); LYMPH # 3.3 K/uL (1.0-4.3); LYMPH % 48.4 % (20.0-40.0); MEAN CELL VOLUME 89.5 fl (81.0-99.0); MEAN CORPUSCULAR HEMOGLOBIN 30.5 pg (27.0-31.0); MEAN CORPUSCULAR HGB CONC 34.1 g/dL (33.0-37.0); MEAN PLATELET VOLUME 7.8 fl (7.2-11.7); MONO # 0.5 K/uL (0.0-0.8); NEUT # 2.7 K/uL (1.8-7.0); NEUT % 40.1 % (50.0-75.0); NRBC % 0.1 % (0.0-0.0); RBC 4.76 Mil/uL (3.80-5.20); RED CELL DISTRIBUTION WIDTH 13.8 % (11.5-14.5); WHITE BLOOD COUNT 6.8 K/uL (4.8-10.8)
[2018-10-29 21:51] LABS: ALB/GLOB RATIO 1.3 (1.0-2.1); ALBUMIN 4.4 g/dL (3.5-5.0); BLOOD UREA NITROGEN 16 mg/dl (7-17); CALCIUM 9.5 mg/dL (8.4-10.2); GFR NON-AFRICAN AMERICAN > 60
[2018-10-29 21:56] LABS: ALT/SGPT 64 U/L (9-52); AST/SGOT 61 U/L (14-36)
[2018-10-29] MEDS ORDERED: Morphine 4 MG/ML VIAL IV ONE (22:56)
[2018-10-29] MEDS ORDERED: Morphine 4 MG/ML VIAL ONE (23:01)
[2018-10-29 23:23] VITALS: RESP 16
[2018-10-30 01:24] VITALS: BP 146/83; PULSE 78; TEMP 98.7
--- NOTE | 2018-10-30 12:09 | CT ---
Date of service: 10/29/2018 PROCEDURE: CT HEAD WITHOUT CONTRAST. HISTORY: headache COMPARISON: 08/20/2018, 08/08/2017. Serial CT scans of the head. TECHNIQUE: Axial computed tomography images were obtained through the head/brain without intravenous contrast. Supplemental Coronal and Sagittal projections created and reviewed. Radiation dose: Total exam DLP = 744.95. mGy-cm. This CT exam was performed using one or more of the following dose reduction techniques: Automated exposure control, adjustment of the mA and/or kV according to patient size, and/or use of iterative reconstruction technique. FINDINGS: HEMORRHAGE: No intracranial hemorrhage. BRAIN: No mass effect or edema. No atrophy or chronic microvascular ischemic changes. VENTRICLES: Unremarkable. No hydrocephalus. CALVARIUM: Unremarkable. PARANASAL SINUSES: Unremarkable as visualized. No significant inflammatory changes. MASTOID AIR CELLS: Unremarkable as visualized. No inflammatory changes. OTHER FINDINGS: None. IMPRESSION: No acute intracranial abnormalities. No significant findings to account for the clinical presentation. No significant interval change compared to the prior examination(s). Concordant results (preliminary interpretation) provided by [employer]. Procedure Completed: 22:40. Preliminary Report: Interpreted and electronically signed: 23:14. Final Interpretation: 12:05. October 30, 2018.
--- NOTE | 2018-10-30 12:20 | CT ---
Date of service: 10/29/2018 PROCEDURE: CT Cervical Spine without contrast HISTORY: Neck Pain. No history of recent/ related trauma provided. COMPARISON: 11/05/2008. TECHNIQUE: Axial computed tomography images were obtained of the cervical spine without the use of intravenous contrast. Coronal and sagittal reformatted images were created and reviewed. Radiation dose: Total exam DLP = 307.42 mGy-cm. This CT exam was performed using one or more of the following dose reduction techniques: Automated exposure control, adjustment of the mA and/or kV according to patient size, and/or use of iterative reconstruction technique. FINDINGS: VERTEBRAE: No fracture. Normal alignment. No destructive bony lesion. DISCS/SPINAL CANAL/NEURAL FORAMINA: No significant central canal or neural foraminal stenosis. Discs heights are grossly preserved. PARASPINAL SOFT TISSUES: Unremarkable. OTHER FINDINGS: Small submandibular and level IIa/IIb lymph nodes identified likely benign etiology. IMPRESSION: No acute or significant findings related to/ accounting for the clinical presentation. Additional benign and/or incidental findings described above. No significant interval change compared to the prior examination(s).
[2018-10-31 18:55] VITALS: O2SAT 98
== END 2018-10-30 01:24 | disposition home or self-care (01) ==
LOC: H.ER 20:02
DX: R74.8 Abnormal levels of other serum enzymes (principal); M62.81 Muscle weakness (generalized); R20.0 Anesthesia of skin
CPT/HCPCS: 70450; 72125; 80053; 81025; 82948; 85025; 96374; 99285; J1885; J2270